=== PATIENT | female | born 1930 | race Caucasian/White ===

== ENCOUNTER 2016-11-04 10:16 | Inpatient (IN) | payer MEDICAID ==
[~2016-11-04] VITALS: Ht 149.9 cm; Wt 32.0 kg
[2016-11-04] MEDS ORDERED: SOD CHLORIDE 0.9% 1,000 ML IV ONE ×2 (10:30)
[2016-11-04 11:00] LABS: ADD SCAN DIFF NO
[2016-11-04 11:08] LABS: BASOPHIL # 0.1 10^3/ul (0.0-0.1); BASOPHILS % 0.4 % (0.0-2.0); EOSINOPHILS # 0.1 10^3/ul (0.0-0.5); EOSINOPHILS % 0.7 % (0.0-7.0); HEMATOCRIT 37.2 % (37.0-47.0); HEMOGLOBIN 11.9 g/dl (12.0-16.0); LYMPHOCYTES # 1.5 10^3/ul (0.8-2.9); LYMPHOCYTES % 13.3 % (15.0-51.0); MEAN CORPUSCULAR HEMOGLOBIN 27.4 pg (29.0-33.0); MEAN CORPUSCULAR VOLUME 85.5 fl (82.0-101.0); MEAN PLATELET VOLUME 10.3 fl (7.4-10.4); MONOCYTE # 0.7 10^3/ul (0.3-0.9); MONOCYTES % 6.1 % (0.0-11.0); NEUTROPHILS % 79.1 % (39.0-77.0); PLATELET COUNT 312 10^3/UL (140-415); RED BLOOD COUNT 4.35 10^6/ul (4.20-5.40); RED CELL DISTRIBUTION WIDTH 15.9 % (11.5-14.5); WHITE BLOOD COUNT 11.4 10^3/ul (4.8-10.8)
[2016-11-04 11:23] LABS: INR 1.14; PROTIME 14.6 Sec (12.2-14.2); PT RATIO 1.1
[2016-11-04] MEDS ORDERED: AMLO-147 PO (11:23)
[2016-11-04] MEDS ORDERED: FER325 PO (11:23)
[2016-11-04 11:24] LABS: PARTIAL THROMBOPLASTIN TIME 31.6 Sec (25.0-35.0)
[2016-11-04 11:25] LABS: ALBUMIN 3.5 g/dl (3.3-4.9); ALBUMIN/GLOBULIN RATIO 0.71; BILIRUBIN,INDIRECT 0.1 mg/dl (0-1.1); BILIRUBIN,TOTAL 0.1 mg/dl (0.2-1.3); CALCIUM 9.8 mg/dl (8.4-10.2); CREATININE 0.93 mg/dl (0.44-1.00); POTASSIUM 4.4 mmol/L (3.5-5.1); TOTAL PROTEIN 8.4 g/dl (6.1-8.1)
[2016-11-04] MEDS ORDERED: POTA20TA96 PO (11:25)
[2016-11-04] MEDS ORDERED: FOLI-49 PO (11:25)
[2016-11-04] MEDS ORDERED: MULTI PO (11:29)
[2016-11-04] MEDS ORDERED: ASCO500C7 PO (11:32)
[2016-11-04] MEDS ORDERED: SENN-8 PO (11:32)
[2016-11-04] MEDS ORDERED: DOCU-144 PO (11:33)
[2016-11-04] MEDS ORDERED: ACET-2047 PO (11:34)
[2016-11-04] MEDS ORDERED: TRAM-40 PO (11:34)
[2016-11-04] MEDS ORDERED: DEXT15DR5 OP (11:35)
[2016-11-04] MEDS ORDERED: DEXT15DR2 BOTH EYES (11:35)
[2016-11-04] MEDS ORDERED: BENZ1LOZ52 MM (11:37)
[2016-11-04 11:38] LABS: TROPONIN-I 0.02 ng/ml (0.00-0.12)
[2016-11-04] MEDS ORDERED: UDROBDM PO (11:38)
[2016-11-04] MEDS ORDERED: ACET325T45 PO (11:39)
--- NOTE | 2016-11-04 11:39 | RADRPT ---
PROCEDURE: XR Chest. CLINICAL INDICATION: Sepsis TECHNIQUE: An AP view of the chest was obtained. COMPARISON: No prior exam is available for comparison. FINDINGS: The lungs are hyperinflated. There are diffuse coarse bilateral interstitial opacities. No pleura l effusion or pneumothorax is seen. The cardiomediastinal silhouette is mildly enlarged . Calcific ations are seen within the aortic arch. The osseous structures demonstrate senescent changes. IMPRESSION: 1. Hyperinflation of the lungs with diffuse coarse interstitial opacities, at least partially relat ed to chronic lung changes. Superimposed pneumonia or edema is difficult to exclude. 2. Mild cardiomegaly and aortic atherosclerosis. RPTAT: HH .Yanni Lara MD, MD Date Time Electronically viewed and signed by .Yanni Lara MD, MD on 11/04/2016 11:39 .G/
[2016-11-04 13:04] LABS: ADD UMIC YES; URINE BILIRUBIN (Dip) NEGATIVE (NEGATIVE); URINE BLOOD (Dip) 2+ (NEGATIVE); URINE COLOR LT. YELLOW (YELLOW); URINE GLUCOSE (Dip) NEGATIVE (NEGATIVE); URINE KETONES (Dip) NEGATIVE (NEGATIVE); URINE LEUKOCYTE ESTERASE (Dip) TRACE (NEGATIVE); URINE NITRITE (Dip) NEGATIVE (NEGATIVE); URINE TOTAL PROTEIN (Dip) 2+ (NEGATIVE); URINE UROBILINOGEN (Dip) 1.0 E.U./dL (0.1-1.0)
[2016-11-04 13:15] LABS: BACTERIA,URINE MANY
[2016-11-04] MEDS ORDERED: CEFEPIME 1GM/50 ML (PMX) 50 ML IVPB ONE (13:30)
[2016-11-04] MEDS ORDERED: ASPIRIN 81 MG TAB PO ONE (14:30)
[2016-11-04] MEDS ORDERED: ACETAMINOPHEN 325 MG TAB PO PRN (14:30)
[2016-11-04] MEDS ORDERED: ONDANSETRON 4 MG INJ IV PRN (14:30)
--- NOTE | 2016-11-04 15:15 | ERA ---
ER Documentation Chief Complaint Date/Time DATE: 11/04/16 TIME: 15:08 Chief Complaint CP PER STAFF SINCE THIS MORNING. NO N/V. MOD SOB NOTED. HPI This 86 -year-old female presents emergency room with chest pain that began this morning. She has some shortness of breath. She also says she has some burning when she urinates. She has no nausea or vomiting. The pain is a sharp pain that does not radiate. States that she's having chills currently with no fevers. ROS All systems reviewed and are negative except as per history of present illness. Medications Home Meds Reported Medications Acetaminophen* (Acetaminophen*) 325 Mg Tablet, 325 MG PO DAILY Y for PAIN AND OR ELEVATED TEMP, #30 TAB 11/04/16 Guaifenesin-Dextromethorphan* (Robitussin* DM) 100MG/10MG/5ML Syrup, 10 ML PO Q8 Y for COUGH, ML 11/04/16 Benzocaine/Menthol* (Cepacol* Sore Throat Lozenges) 1 Each Lozenge, 1 EACH MM Q6 Y for SORE THROAT, LOZENGE 11/04/16 Dextran/Hypromellose/Glycerin (Artificial Tears Drops) 15 Ml Drops, 2 DROP BOTH EYES Q6, EA 11/04/16 Dextran 70/Hypromellose (ARTIFICIAL TEARS EYE DROPS) 15 Ml Drops, 15 ML OP, BOTTLE 11/04/16 Acetaminophen* (Acetaminophen*) 650 Mg Tablet, 650 MG PO Q4 Y for PAIN AND OR ELEVATED TEMP, #30 TAB 11/04/16 Tramadol Hcl* (Ultram*) 50 Mg Tablet, 50 MG PO BID Y for PAIN, TAB 11/04/16 Docusate Sodium* (Colace*) 100 Mg Capsule, 100 MG PO BID, #60 CAP 11/04/16 Sennosides/Docusate Sodium (Senna S Tablet) 1 Each Tablet, 1 EACH PO DAILY, TAB 11/04/16 Ascorbic Acid* (Vitamin C*) 500 Mg Capsule.sa, 500 MG PO DAILY, CAP 11/04/16 Multivitamins* (Theragran*) 1 Tab Tab, 1 TAB PO DAILY, TAB 11/04/16 Potassium Chloride* (Potassium Chloride*) 20 Meq Tablet.er, 10 MEQ PO DAILY, TAB.SA 11/04/16 Folic Acid* (Folic Acid*) 1 Mg Tablet, 1 MG PO DAILY, TAB 11/04/16 Ferrous Sulfate* (Ferrous Sulfate*) 325 Mg Tabec, 325 MG PO DAILY, TAB 11/04/16 Amlodipine Besylate* (Amlodipine Besylate*) 10 Mg Tablet, 10 MG PO DAILY, #30 TAB 11/04/16 Allergies Allergies: Coded Allergies: No Known Allergy (Unverified , 11/04/16) PMhx/Soc Hx Respiratory Disorders: Yes Hx Psychiatric Problems: Yes (delusion; depression) Hx Miscellaneous Medical Probl: Yes (failure to thrive; osteoporosis; gallstones; generalized weakness; old frau) Hx Alcohol Use: No Hx Substance Use: No Hx Tobacco Use: No Smoking Status: Never smoker Physical Exam Vitals Vital Signs Date Time Temp Pulse Resp B/P Pulse Ox O2 Delivery O2 Flow Rate FiO2 11/04/16 12:10 98 30 131/95 96 Nasal Cannula 2.0 11/04/16 10:55 Nasal Cannula 2 11/04/16 10:30 99.0 110 35 131/95 98 Physical Exam Const: [] Mild distress, very thin appearing Head: Atraumatic Eyes: Normal Conjunctiva, EOMI, PRL ENT: Normal External Ears, Nose and Mouth. Neck: Full range of motion..~ No meningismus. Resp: Decreased bibasilar breath sounds, mild tachypnea Cardio: Mild regular tachycardia, no murmurs Abd: Soft, non tender, non distended. Normal bowel sounds Skin: No petechiae or rashes Back: No midline or flank tenderness Ext: No cyanosis, or edema Neur: Awake and alert and oriented 3, no focal deficits Psych: Normal Mood and Affect Result Diagram: 11/04/16 1035 11/04/16 1035 Results 24 hrs Laboratory Tests Test 11/04/16 10:35 11/04/16 13:00 11/04/16 13:15 White Blood Count 11.410^3/ul Red Blood Count 4.3510^6/ul Hemoglobin 11.9g/dl Hematocrit 37.2% Mean Corpuscular Volume 85.5fl Mean Corpuscular Hemoglobin 27.4pg Mean Corpuscular Hemoglobin Concent 32.0g/dl Red Cell Distribution Width 15.9% Platelet Count 58788^3/UL Mean Platelet Volume 10.3fl Neutrophils % 79.1% Lymphocytes % 13.3% Monocytes % 6.1% Eosinophils % 0.7% Basophils % 0.4% Nucleated Red Blood Cells % 0.0/100WBC Neutrophils # 9.010^3/ul Lymphocytes # 1.510^3/ul Monocytes # 0.710^3/ul Eosinophils # 0.110^3/ul Basophils # 0.110^3/ul Nucleated Red Blood Cells # 0.010^3/ul Prothrombin Time 14.6Sec Prothrombin Time Ratio 1.1 INR International Normalized Ratio 1.14 Activated Partial Thromboplast Time 31.6Sec Sodium Level 141mmol/L Potassium Level 4.4mmol/L Chloride Level 108mmol/L Carbon Dioxide Level 24mmol/L Anion Gap 13 Blood Urea Nitrogen 41mg/dl Creatinine 0.93mg/dl Glucose Level 140mg/dl Lactic Acid Level 1.4mmol/L 2.3mmol/L Calcium Level 9.8mg/dl Total Bilirubin 0.1mg/dl Direct Bilirubin 0.00mg/dl Indirect Bilirubin 0.1mg/dl Aspartate Amino Transf (AST/SGOT) 27IU/L Alanine Aminotransferase (ALT/SGPT) 27IU/L Alkaline Phosphatase 159IU/L Troponin I 0.020ng/ml B-Type Natriuretic Peptide 1090PG/ML Total Protein 8.4g/dl Albumin 3.5g/dl Globulin 4.90g/dl Albumin/Globulin Ratio 0.71 Urine Color LT. YELLOW Urine Clarity SLIGHTLY CLOUDY Urine pH 8.0 Urine Specific [place] 1.010 Urine Ketones NEGATIVE Urine Nitrite NEGATIVE Urine Bilirubin NEGATIVE Urine Urobilinogen 1.0 E.U./dL Urine Leukocyte Esterase TRACE Urine Microscopic RBC 10-25/HPF Urine Microscopic WBC 2-5/HPF Urine Epithelial Cells FEW Urine Bacteria MANY Urine Hemoglobin 2+ Urine Glucose NEGATIVE% Urine Total Protein 2+ Current Medications Medications (Trade) Dose Ordered Sig/Giselle Route PRN Reason Start Time Stop Time Status Last Admin Dose Admin Sodium Chloride 1,000 ml @ 1,000 mls/hr Q1H ONCE IV 11/04/16 10:30 11/04/16 11:29 DC 11/04/16 11:30 Sodium Chloride 1,000 ml @ 1,000 mls/hr Q1H ONCE IV 11/04/16 10:30 11/04/16 11:29 DC 11/04/16 11:30 Cefepime HCl (Maxipime 1gm/50 ml (Pmx)) 50 ml @ 100 mls/hr ONCE ONCE IVPB 11/04/16 13:30 11/04/16 13:59 DC 11/04/16 14:18 Aspirin (Aspirin) 324 mg ONCE ONCE PO 11/04/16 14:30 11/04/16 14:31 DC 11/04/16 14:39 Ondansetron HCl (Zofran Inj) 4 mg ER BRIDGE PRN IV NAUSEA AND/OR VOMITING 11/04/16 14:30 11/05/16 14:29 Acetaminophen (Tylenol Tab) 650 mg ER BRIDGE PRN PO MILD PAIN/FEVER 11/04/16 14:30 11/05/16 14:29 Procedures/MDM . UTI with sepsis. Sepsis diagnosis was not made until 82 minutes after the patient's arrival when she returned with abnormal white count. In addition to leukocytosis she has a Urinary tract infection as well as tachypnea and tachycardia which resolved with fluid administration. Gave her 1 g of cefepime IV. Patient is also treated with an aspirin for her chest pain. No elevated troponin or signs of myocardial infarction on EKG. She'll be admitted and further labs will be trended. Spoke with Dr. Angeles and he'll be admitting the patient to telemetry. EKG interpretation: Sinus tachycardia rate of 104, left axis deviation, left anterior fascicular block, no ST or T-wave changes concerning for acute ischemia. independent trader interpretation: Mild sinus tachycardia with no other arrhythmias Chest x-ray interpretation: Chronic interstitial changes without appearance of any acute process, no obvious pneumonia, no pneumothorax, no fractures. Crit time 34 minutes: This includes treatment of sepsis in a patient with multiple capabilities and chest pain, careful fluid administration, antibiotic administration, multiple visits the patient's bedside to reassess status, chart review, discussion with admitting doctor and patient. This does not include any billable procedures. Departure Diagnosis: Primary Impression: Sepsis secondary to UTI Additional Impressions: Chest pain Tachypnea Dehydration Elevated lactic acid level Condition: Serious AYDEKRYSTYNA DO November 04, 2016 15:15
[2016-11-04 16:02] VITALS: BP 152/89; RESP 18
[2016-11-04 16:15] VITALS: BP 152/89; PULSE 88; RESP 20
[2016-11-04] MEDS ORDERED: ARTIFICIAL TEARS 15 ML OPH BOTH EYES PRN (16:30)
[2016-11-04] MEDS ORDERED: CEPASTAT LOZENGE MM PRN (16:30)
[2016-11-04] MEDS ORDERED: morphine 2 MG INJ IV PRN (16:30)
[2016-11-04 16:35] VITALS: PULSE 97
[2016-11-04 16:46] VITALS: Ht 149.9 cm; Wt 32.0 kg
[2016-11-04] MEDS ORDERED: ARTIFICIAL TEARS 15 ML OPH BOTH EYES SCH (18:00)
[2016-11-04 19:53] VITALS: BP 153/97; RESP 18
[2016-11-04] MEDS: CEFEPIME 1GM/50 ML (PMX) 50 ML IVPB SCH (20:17)
[2016-11-04] MEDS: DOCUSATE SODIUM 100 MG CAP PO SCH (20:17)
[2016-11-04 20:47] VITALS: PULSE 86
[2016-11-04 21:53] LABS: CK-MB 2.24 ng/ml (0.0-2.4)
[2016-11-04 21:56] LABS: TROPONIN-I 0.022 ng/ml (0.00-0.12)
[2016-11-04] MEDS: traZODone 50 MG TAB PO PRN ×2 (23:08→23:26)
[2016-11-04] MEDS: ACETAMINOPHEN 325 MG TAB PO PRN (23:27)
[2016-11-05] VITALS (12 sets, daily range): BP systolic 133–145; BP diastolic 74–91; PULSE 81–108; RESP 18–22
[2016-11-05] MEDS: morphine 4 MG/ML VIAL IV PRN ×4 (00:14→20:13)
[2016-11-05 03:12] LABS: ADD SCAN DIFF NO
[2016-11-05 03:36] LABS: BASOPHIL # 0.1 10^3/ul (0.0-0.1); BASOPHILS % 0.4 % (0.0-2.0); EOSINOPHILS # 0.6 10^3/ul (0.0-0.5); HEMATOCRIT 39.8 % (37.0-47.0); HEMOGLOBIN 12.3 g/dl (12.0-16.0); LYMPHOCYTES # 2.6 10^3/ul (0.8-2.9); MEAN CORPUSCULAR HEMOGLOBIN 27.1 pg (29.0-33.0); MEAN CORPUSCULAR HGB CONC 30.9 g/dl (32.0-37.0); MEAN CORPUSCULAR VOLUME 87.7 fl (82.0-101.0); MEAN PLATELET VOLUME 10.5 fl (7.4-10.4); MONOCYTE # 0.7 10^3/ul (0.3-0.9); MONOCYTES % 5.7 % (0.0-11.0); NEUTROPHIL # 7.7 10^3/ul (1.6-7.5); NEUTROPHILS % 66.3 % (39.0-77.0); PLATELET COUNT 321 10^3/UL (140-415); RED BLOOD COUNT 4.54 10^6/ul (4.20-5.40); RED CELL DISTRIBUTION WIDTH 16.2 % (11.5-14.5); WHITE BLOOD COUNT 11.7 10^3/ul (4.8-10.8)
[2016-11-05 03:50] LABS: CK-MB 2.47 ng/ml (0.0-2.4)
[2016-11-05 03:53] LABS: TROPONIN-I 0.032 ng/ml (0.00-0.12)
[2016-11-05 04:02] LABS: ALBUMIN 3.6 g/dl (3.3-4.9); ALBUMIN/GLOBULIN RATIO 0.69; BILIRUBIN,INDIRECT 0.2 mg/dl (0-1.1); BILIRUBIN,TOTAL 0.2 mg/dl (0.2-1.3); CALCIUM 10.1 mg/dl (8.4-10.2); CREATININE 0.91 mg/dl (0.44-1.00); POTASSIUM 4.6 mmol/L (3.5-5.1); TOTAL PROTEIN 8.8 g/dl (6.1-8.1)
[2016-11-05] MEDS: AMLODIPINE 5 MG TAB PO SCH (08:19)
[2016-11-05] MEDS: FERROUS SULFATE (EC) 325 MG TAB PO SCH (08:19)
[2016-11-05] MEDS: ASCORBIC ACID 500 MG TAB PO SCH (08:19)
[2016-11-05] MEDS: MULTIVITAMINS THERAPEUTIC TAB PO SCH (08:20)
[2016-11-05] MEDS: DOCUSATE SODIUM 100 MG CAP PO SCH ×2 (08:20→19:39)
[2016-11-05] MEDS: CEFEPIME 1GM/50 ML (PMX) 50 ML IVPB SCH ×2 (08:20→20:13)
[2016-11-05] MEDS: FOLIC ACID 1 MG TAB PO SCH (08:20)
[2016-11-05] MEDS: DEXTROSE 5%-0.45% NACL 1,000 ML IV SCH (09:30)
--- NOTE | 2016-11-05 10:37 | HP ---
DATE OF ADMISSION: 11/04/2016 CHIEF COMPLAINT AND HISTORY OF PRESENT ILLNESS: The patient is an 86-year-old lady who presents wit h shortness of breath, and some burning when she passes urine and diffuse body aches. The patient i s not able to give any cogent history at this time. From prior medical records, history of osteopor osis, history of cholelithiasis, fracture of the calcaneus on the left foot, chronic anemia and mild dementia. She is on a FULL CODE status. She also has history of hypertension. REVIEW OF SYSTEMS: Unable to obtain from the patient at this time. MEDICATIONS: Include: 1. Ferrous sulfate. 2. Folic acid. 3. Amlodipine. 4. Ultram. ALLERGIES: NO KNOWN ALLERGIES. SOCIAL HISTORY: No history of alcohol abuse or smoking. PHYSICAL EXAMINATION: GENERAL: The patient is an average-built female who is moaning. When repeatedly questioned, she is not able to vocalize what is bothering her. VITAL SIGNS: Blood pressure 131/95, temperature 99, O2 saturation 98% on 2 liters nasal cannula. HEENT: Mild pallor without cyanosis or icterus. Tongue is coated, dry. NECK: Supple. No thyromegaly, bruits or lymphadenopathy. CHEST: Revealed a few crackles heard at the bases. HEART: S1, S2 heard with no definite gallops. ABDOMEN: Soft, nontender, no hepatosplenomegaly. EXTREMITIES: No edema. Pedals 1+ bilaterally. Homans sign is negative. NEUROLOGIC: The patient moves both upper and lower extremities well. PELVIC/RECTAL/BREASTS: Deferred at patient's request. LABORATORY DATA: Initial sodium is 141, potassium 4.4, BUN 41, creatinine 0.93, lactic acid 2.3, al kaline phosphatase 159. Troponin 0.02. Repeat troponin is 0.032. UA shows trace leukocyte esteras e, many bacteria, 2+ hemoglobin. IMPRESSION: 1. Likely delirium secondary to urinary tract infection. 2. Atypical chest pain. No evidence of an acute myocardial infarction. 3. Dehydration with prerenal azotemia. 4. Hypertension by history. PLAN: We will obtain speech evaluation to rule out silent aspiration. Intravenous hydration. Empi jose eduardo antibiotic therapy pending cultures. Closely monitor the electrolytes and renal function. We w ill discuss with family regarding further history and document the same. Dictated By: KASSI RICARDO MD SR/NTS Conf#: [id number] DID#: [id number]
[2016-11-06] VITALS (11 sets, daily range): BP systolic 103–168; BP diastolic 63–82; PULSE 75–95; RESP 18
[2016-11-06] MEDS: morphine 4 MG/ML VIAL IV PRN ×4 (00:52→22:43)
[2016-11-06] MEDS: DEXTROSE 5%-0.45% NACL 1,000 ML IV SCH ×2 (00:52→12:10)
[2016-11-06 06:50] LABS: ADD SCAN DIFF NO
[2016-11-06 07:19] LABS: POTASSIUM 4.2 mmol/L (3.5-5.1)
[2016-11-06 07:21] LABS: CREATININE 0.85 mg/dl (0.44-1.00)
[2016-11-06 07:22] LABS: CALCIUM 9.3 mg/dl (8.4-10.2)
[2016-11-06 07:48] LABS: BASOPHIL # 0.1 10^3/ul (0.0-0.1); BASOPHILS % 0.5 % (0.0-2.0); EOSINOPHILS # 1.1 10^3/ul (0.0-0.5); EOSINOPHILS % 10.4 % (0.0-7.0); HEMATOCRIT 40.1 % (37.0-47.0); HEMOGLOBIN 12.6 g/dl (12.0-16.0); LYMPHOCYTES # 2.5 10^3/ul (0.8-2.9); LYMPHOCYTES % 22.7 % (15.0-51.0); MEAN CORPUSCULAR HEMOGLOBIN 27.5 pg (29.0-33.0); MEAN CORPUSCULAR HGB CONC 31.4 g/dl (32.0-37.0); MEAN CORPUSCULAR VOLUME 87.4 fl (82.0-101.0); MEAN PLATELET VOLUME 10.8 fl (7.4-10.4); MONOCYTE # 0.9 10^3/ul (0.3-0.9); NEUTROPHIL # 6.3 10^3/ul (1.6-7.5); NEUTROPHILS % 57.8 % (39.0-77.0); PLATELET COUNT 258 10^3/UL (140-415); RED BLOOD COUNT 4.59 10^6/ul (4.20-5.40); RED CELL DISTRIBUTION WIDTH 16.1 % (11.5-14.5); WHITE BLOOD COUNT 10.9 10^3/ul (4.8-10.8)
--- NOTE | 2016-11-06 07:51 | RADRPT ---
PROCEDURE: XR Chest. CLINICAL INDICATION: Shortness of breath. TECHNIQUE: Single frontal view. COMPARISON: 11/04/2016. FINDINGS: There is bilateral interstitial disease consistent with fibrosis or edema, unchanged. The lungs are otherwise clear. The heart size is normal. There is calcification in the aorta consistent with atherosclerosis. There is no pleural effusion. There is no pneumothorax. IMPRESSION: 1. No change from 11/04/2016. RPTAT: QQ .Harish Jones MD, MD Date Time Electronically viewed and signed by .Harish Jones MD, MD on 11/06/2016 07:51 .R/
[2016-11-06] MEDS: CEFEPIME 1GM/50 ML (PMX) 50 ML IVPB SCH ×2 (08:17→20:35)
[2016-11-06] MEDS: FERROUS SULFATE (EC) 325 MG TAB PO SCH (08:19)
[2016-11-06] MEDS: DOCUSATE SODIUM 100 MG CAP PO SCH ×2 (08:19→20:36)
[2016-11-06] MEDS: MULTIVITAMINS THERAPEUTIC TAB PO SCH (08:20)
[2016-11-06] MEDS: FOLIC ACID 1 MG TAB PO SCH (08:20)
[2016-11-06] MEDS: ASCORBIC ACID 500 MG TAB PO SCH (08:20)
[2016-11-06] MEDS: AMLODIPINE 5 MG TAB PO SCH (08:20)
[2016-11-06] MEDS: ESCITALOPRAM 10 MG TAB PO SCH (13:30)
--- NOTE | 2016-11-06 13:52 | PN ---
DATE: SUBJECTIVE: The patient keeps crying, unable to vocalize about any pain issues. On n.p.o. status a s speech therapy felt patient was not appropriate for p.o. diet yet. PHYSICAL EXAMINATION: VITAL SIGNS: The patient is afebrile, blood pressure 138/82, pulse oximetry 97%. HEENT: Head normocephalic. CHEST: Revealed a few crackles heard at the bases. HEART: S1, S2 with no definite gallops. EXTREMITIES: No edema. Homans sign is negative. LABORATORY DATA: Sodium 140, potassium 4.2, BUN 39, creatinine 0.85. WBC count 10.9, hematocrit 40 .1, platelet count 258,000. Urine cultures Klebsiella pneumoniae sensitive to cephalosporins. IMPRESSION: 1. Likely patient has encephalopathy secondary to urinary tract infection. 2. Dehydration with prerenal azotemia. 3. Hypertension by history. 4. Dysphagia. PLAN: Continue IV hydration, empiric antibiotic therapy pending cultures. Repeat speech therapy ev aluation. We will also start the patient on antidepressants, namely Lexapro 10 mg p.o. daily and as sess the response. Dictated By: KASSI RICARDO MD SR/NTS Conf#: [id number] DID#: [id number]
[2016-11-07] VITALS (13 sets, daily range): BP systolic 96–145; BP diastolic 55–85; PULSE 67–85; RESP 18–20
[2016-11-07] MEDS: LORAZEPAM 2 MG INJ IV PRN (00:35)
[2016-11-07] MEDS: DEXTROSE 5%-0.45% NACL 1,000 ML IV SCH ×3 (04:45→17:41)
[2016-11-07 06:51] LABS: ADD SCAN DIFF NO
[2016-11-07 06:55] LABS: BASOPHIL # 0.1 10^3/ul (0.0-0.1); BASOPHILS % 0.5 % (0.0-2.0); EOSINOPHILS # 1.3 10^3/ul (0.0-0.5); EOSINOPHILS % 12.9 % (0.0-7.0); HEMATOCRIT 35.3 % (37.0-47.0); HEMOGLOBIN 10.5 g/dl (12.0-16.0); LYMPHOCYTES # 2.4 10^3/ul (0.8-2.9); LYMPHOCYTES % 24.7 % (15.0-51.0); MEAN CORPUSCULAR HEMOGLOBIN 27.1 pg (29.0-33.0); MEAN CORPUSCULAR HGB CONC 29.7 g/dl (32.0-37.0); MEAN PLATELET VOLUME 10.2 fl (7.4-10.4); MONOCYTE # 0.9 10^3/ul (0.3-0.9); MONOCYTES % 9.5 % (0.0-11.0); NEUTROPHILS % 51.6 % (39.0-77.0); PLATELET COUNT 266 10^3/UL (140-415); RED BLOOD COUNT 3.88 10^6/ul (4.20-5.40); RED CELL DISTRIBUTION WIDTH 15.9 % (11.5-14.5); WHITE BLOOD COUNT 9.7 10^3/ul (4.8-10.8)
[2016-11-07 07:07] LABS: POTASSIUM 3.9 mmol/L (3.5-5.1)
[2016-11-07 07:10] LABS: CALCIUM 8.8 mg/dl (8.4-10.2); CREATININE 0.83 mg/dl (0.44-1.00)
[2016-11-07] MEDS: DOCUSATE SODIUM 100 MG CAP PO SCH ×2 (09:00→20:23)
[2016-11-07] MEDS: ASCORBIC ACID 500 MG TAB PO SCH (09:00)
[2016-11-07] MEDS: ESCITALOPRAM 10 MG TAB PO SCH (09:00)
[2016-11-07] MEDS: FOLIC ACID 1 MG TAB PO SCH (09:00)
[2016-11-07] MEDS: MULTIVITAMINS THERAPEUTIC TAB PO SCH (09:00)
[2016-11-07] MEDS: FERROUS SULFATE (EC) 325 MG TAB PO SCH (09:00)
[2016-11-07] MEDS: AMLODIPINE 5 MG TAB PO SCH (09:00)
[2016-11-07] MEDS: CEFEPIME 1GM/50 ML (PMX) 50 ML IVPB SCH ×2 (09:14→20:23)
[2016-11-07] MEDS: ENOXAPARIN 30 MG/0.3 ML SYG SC SCH (09:18)
--- NOTE | 2016-11-07 11:24 | RADRPT ---
PROCEDURE: XR Chest 1 View. CLINICAL INDICATION: Shortness of breath. TECHNIQUE: AP view of the chest was obtained. COMPARISON: Yesterday. FINDINGS: The heart size is within normal limits. Calcified atherosclerosis is noted in the aorta. Diffuse in terstitial prominence in both lungs is unchanged. Superimposed patchy alveolar infiltrates in both lungs are stable. Osseous structures are unchanged. IMPRESSION: Calcified atherosclerosis in the aorta. Stable diffuse interstitial prominence in both lungs. Stable superimposed patchy alveolar infiltrates throughout both lungs. RPTAT: AA .Jacques Calhoun MD, MD Date Time Electronically viewed and signed by .Jacques Calhoun MD, on 11/07/2016 11:24 .P/
--- NOTE | 2016-11-07 16:39 | PN ---
DATE: SUBJECTIVE: The patient continues to moan, but seems like she is having less pain today, has been g etting morphine. PHYSICAL EXAMINATION: VITAL SIGNS: Temperature 98.4, blood pressure 134/66, respirations 20 per minute, O2 saturation is 98%. HEENT: Head normocephalic. CHEST: Shows few crackles at the bases. HEART: S1, S2 heard with no gallops. EXTREMITIES: No edema. LABORATORY DATA: WBC count 9.7, hematocrit 35.3, platelet count 266,000. Sodium 140, potassium 3.9 , BUN 25, creatinine 0.83. BNP is 550. Blood cultures negative. IMPRESSION: 1. Urinary tract infection with associated encephalopathy. 2. Dehydration with prerenal azotemia, improved. 3. Hypertension. 4. Dysphagia. 5. Underlying major depression. The patient was started on Lexapro, but is unable to be given p.o. We will discuss with speech therapy and then start the patient on pureed diet with thickened liqui ds with strict aspiration precautions. Dictated By: KASSI RICARDO MD, SR/SHANTEL Conf#: [id number] DID#: [id number]
[2016-11-08] VITALS (12 sets, daily range): BP systolic 121–192; BP diastolic 63–101; PULSE 75–120; RESP 18–19
[2016-11-08] MEDS: DEXTROSE 5%-0.45% NACL 1,000 ML IV SCH ×2 (05:22→17:20)
[2016-11-08 07:12] LABS: ADD SCAN DIFF NO
[2016-11-08 07:19] LABS: BASOPHILS % 0.3 % (0.0-2.0); EOSINOPHILS # 0.6 10^3/ul (0.0-0.5); EOSINOPHILS % 6.3 % (0.0-7.0); HEMATOCRIT 32.8 % (37.0-47.0); HEMOGLOBIN 10.3 g/dl (12.0-16.0); LYMPHOCYTES # 1.7 10^3/ul (0.8-2.9); MEAN CORPUSCULAR HEMOGLOBIN 27.3 pg (29.0-33.0); MEAN CORPUSCULAR HGB CONC 31.4 g/dl (32.0-37.0); MEAN PLATELET VOLUME 10.4 fl (7.4-10.4); MONOCYTE # 0.6 10^3/ul (0.3-0.9); MONOCYTES % 6.2 % (0.0-11.0); NEUTROPHIL # 6.2 10^3/ul (1.6-7.5); NEUTROPHILS % 67.9 % (39.0-77.0); PLATELET COUNT 320 10^3/UL (140-415); RED BLOOD COUNT 3.77 10^6/ul (4.20-5.40); RED CELL DISTRIBUTION WIDTH 15.6 % (11.5-14.5); WHITE BLOOD COUNT 9.2 10^3/ul (4.8-10.8)
[2016-11-08 07:34] LABS: ALBUMIN 2.8 g/dl (3.3-4.9)
[2016-11-08 07:35] LABS: POTASSIUM 3.4 mmol/L (3.5-5.1)
[2016-11-08 07:37] LABS: ALBUMIN/GLOBULIN RATIO 0.63; BILIRUBIN,INDIRECT 0.4 mg/dl (0-1.1); BILIRUBIN,TOTAL 0.4 mg/dl (0.2-1.3); CREATININE 0.71 mg/dl (0.44-1.00); TOTAL PROTEIN 7.2 g/dl (6.1-8.1)
[2016-11-08 07:38] LABS: CALCIUM 8.8 mg/dl (8.4-10.2); MAGNESIUM 1.7 mg/dl (1.7-2.5)
[2016-11-08] MEDS: AMLODIPINE 5 MG TAB PO SCH (09:00)
[2016-11-08] MEDS: DOCUSATE SODIUM 100 MG CAP PO SCH ×2 (09:00→20:15)
[2016-11-08] MEDS: MULTIVITAMINS THERAPEUTIC TAB PO SCH (09:00)
[2016-11-08] MEDS: ASCORBIC ACID 500 MG TAB PO SCH (09:00)
[2016-11-08] MEDS: FOLIC ACID 1 MG TAB PO SCH (09:00)
[2016-11-08] MEDS: ESCITALOPRAM 10 MG TAB PO SCH (09:00)
[2016-11-08] MEDS: FERROUS SULFATE (EC) 325 MG TAB PO SCH (09:00)
[2016-11-08] MEDS: CEFEPIME 1GM/50 ML (PMX) 50 ML IVPB SCH ×2 (09:10→20:14)
[2016-11-08] MEDS: ENOXAPARIN 30 MG/0.3 ML SYG SC SCH (09:13)
[2016-11-08] MEDS: morphine 4 MG/ML VIAL IV PRN ×2 (09:14→20:35)
[2016-11-08] MEDS: hydrALAzine 20 MG INJ IV PRN (11:30)
[2016-11-08] MEDS: LORAZEPAM 2 MG INJ IV PRN (15:18)
[2016-11-08] MEDS ORDERED: BARIUM SULF 2% 450 ML BTL (BERRY SMOOTHIE) PO ONE (18:00)
--- NOTE | 2016-11-08 18:13 | PN ---
DATE: SUBJECTIVE: The patient continues to keep moaning when repeatedly questioned. I am unable to ascer tain the location where she has pain. She is n.p.o., as she failed swallow evaluation. PHYSICAL EXAMINATION: VITAL SIGNS: Temperature 98.3, pulse 118 per minute, blood pressure 120/63, O2 sats 93%. HEENT: Head normocephalic. Moderate pallor. CHEST: Clear anteriorly. Few crackles heard at the bases. HEART: S1, S2 with no definite gallops. EXTREMITIES: No edema. Previous records reviewed. The patient had a recent ultrasound about a month ago, which showed gall stones and the left renal atrophy with bilateral nonobstructing renal stones. It is possible she ma y be having pain from nephrolithiasis. I have already spoken with the patient's nephew, Mr. Muniz, and explained to him regarding patient's swallowing difficulty. He will discuss with other members of the family and we need to consider some kind of alternative modes of feeding. LABORATORY DATA: Sodium 135, potassium 3.4, BUN 14, creatinine 0.71. WBC count 9.2, hematocrit 32. 8, platelet count 320,000. IMPRESSION: 1. Urinary tract infection with associated delirium. 2. Dehydration with prerenal azotemia, improved. 3. Anemia, rule out gastrointestinal blood loss. 4. Hypertension. 5. Dysphagia. 6. Underlying major depression. 7. History of cholelithiasis. 8. Nephrolithiasis. PLAN: We will proceed and get a CT of the abdomen and pelvis. [facility]. Will discuss with family regarding consideration of G-tube feedings. Dictated By: KASSI RICARDO MD, SR/NTS Conf#: [id number] DID#: [id number]
[2016-11-08] MEDS: POTASSIUM CHLORIDE 30 MEQ in DEXTROSE 5%-0.45% NACL 1,000 ML IV SCH (18:54)
--- NOTE | 2016-11-08 18:58 | RADRPT ---
PROCEDURE: CT Abdomen and Pelvis without contrast. CLINICAL INDICATION: Abdominal and pelvic pain. TECHNIQUE: CT scan of the abdomen and pelvis without contrast was performed. Coronal and sagittal reformatted images were obtained from the axial source images. Images were reviewed on a high-[employer] PACS workstation. Total exam DLP is 233.33 mGy-cm. CTDIvol is 4.68 mGy. One or more of the fo llowin dose reduction techniques were used: Automated exposure control, adjustment of the mA and/or kV according to patient size, use of iterative reconstruction technique. COMPARISON: Chest radiograph dated 11/07/2016. FINDINGS: There is extensive interstitial disease at the lung bases with mild bronchiectasis consistent with a chronic infiltrative process. Right is worse than left. The lung bases are otherwise normal. The re is no pleural effusion or pericardial effusion. There is extensive coronary artery calcification . The liver is normal in size and attenuation. There is no focal hepatic lesion. The gallbladder is distended and gallstones are present in the gallbladder. There is no evidence of cholecystitis. The common bile duct is dilated measuring 11 mm in diameter. No obstructing lesion is visualized. The spleen is normal in size. There is no focal splenic lesion. Both adrenals are normal with no enlargement or mass. The pancreas is unremarkable with no mass or evidence of pancreatitis. There is no renal mass or hydronephrosis. There is no renal calculus or ureteral calculus. There is calcification in the aorta consistent with atherosclerosis. There is an infrarenal abdomin al aortic aneurysm measuring 3.3 cm in maximal dimension. There is no evidence of aneurysm leak. There is no retroperitoneal lymphadenopathy or mass. There is no pelvic lymphadenopathy or mass. The urinary bladder is mildly distended but otherwise unremarkable. The periappendiceal region is unremarkable with no evidence of appendicitis. The bowel and mesentery are normal. There is no free fluid or free gas. There are degenerative changes of the spine. There is no fracture or lytic lesion IMPRESSION: 1. Chronic infiltrative process in the lungs with right worse than left. 2. Coronary artery calcification. 3. Distended gallbladder containing gallstones. No evidence of cholecystitis. 4. Atherosclerosis. 5. Infrarenal abdominal aortic aneurysm measuring 3.3 cm. 6. Mildly distended urinary bladder. 7. Degenerative changes of the spine. RPTAT: QQ .Harish Jones MD, MD Date Time Electronically viewed and signed by .Harish Jones MD, MD on 11/08/2016 18:57 .R/
[2016-11-09] VITALS (13 sets, daily range): BP systolic 135–186; BP diastolic 65–103; PULSE 80–92; RESP 18–20
[2016-11-09 06:01] LABS: ADD SCAN DIFF NO
[2016-11-09 06:16] LABS: BASOPHILS % 0.4 % (0.0-2.0); EOSINOPHILS # 0.6 10^3/ul (0.0-0.5); EOSINOPHILS % 7.5 % (0.0-7.0); HEMATOCRIT 33.2 % (37.0-47.0); HEMOGLOBIN 10.6 g/dl (12.0-16.0); LYMPHOCYTES # 1.5 10^3/ul (0.8-2.9); LYMPHOCYTES % 17.4 % (15.0-51.0); MEAN CORPUSCULAR HEMOGLOBIN 27.2 pg (29.0-33.0); MEAN CORPUSCULAR HGB CONC 31.9 g/dl (32.0-37.0); MEAN CORPUSCULAR VOLUME 85.1 fl (82.0-101.0); MEAN PLATELET VOLUME 10.7 fl (7.4-10.4); MONOCYTE # 0.6 10^3/ul (0.3-0.9); MONOCYTES % 7.6 % (0.0-11.0); NEUTROPHIL # 5.6 10^3/ul (1.6-7.5); NEUTROPHILS % 66.3 % (39.0-77.0); PLATELET COUNT 300 10^3/UL (140-415); RED CELL DISTRIBUTION WIDTH 15.5 % (11.5-14.5); WHITE BLOOD COUNT 8.4 10^3/ul (4.8-10.8)
[2016-11-09 06:47] LABS: CALCIUM 9.2 mg/dl (8.4-10.2); CREATININE 0.7 mg/dl (0.44-1.00); POTASSIUM 4.5 mmol/L (3.5-5.1)
[2016-11-09] MEDS: POTASSIUM CHLORIDE 30 MEQ in DEXTROSE 5%-0.45% NACL 1,000 ML IV SCH ×3 (06:55→21:03)
[2016-11-09] MEDS: morphine 4 MG/ML VIAL IV PRN ×3 (08:42→22:23)
[2016-11-09] MEDS: FOLIC ACID 1 MG TAB PO SCH (08:43)
[2016-11-09] MEDS: CEFEPIME 1GM/50 ML (PMX) 50 ML IVPB SCH ×2 (08:43→21:02)
[2016-11-09] MEDS: ESCITALOPRAM 10 MG TAB PO SCH (08:43)
[2016-11-09] MEDS: FERROUS SULFATE (EC) 325 MG TAB PO SCH (08:43)
[2016-11-09] MEDS: MULTIVITAMINS THERAPEUTIC TAB PO SCH (08:43)
[2016-11-09] MEDS: AMLODIPINE 5 MG TAB PO SCH (08:43)
[2016-11-09] MEDS: DOCUSATE SODIUM 100 MG CAP PO SCH ×2 (08:43→20:56)
[2016-11-09] MEDS: ASCORBIC ACID 500 MG TAB PO SCH (08:44)
[2016-11-09] MEDS: ENOXAPARIN 30 MG/0.3 ML SYG SC SCH (08:47)
--- NOTE | 2016-11-09 17:06 | PN ---
DATE: 11/09/2016 SUBJECTIVE: Patient is lethargic, keeps moaning, unable to localize the area of pain. PHYSICAL EXAMINATION: VITAL SIGNS: Patient is afebrile. Blood pressure 136/75, O2 sats 90%, pulse rate 84 and regular. HEENT: Moderate pallor with cyanosis. CHEST: clinically clear anteriorly. HEART: S1, S2 heard with no definite gallops. ABDOMEN: Soft, nontender, no hepatosplenomegaly. EXTREMITIES: No edema. IMAGING: CT of the abdomen and pelvis shows chronic infiltrative process in the lungs, right worse than left, with bronchiectasis. Gallbladder is distended and gallstones present. Common bile duct is dilated measuring 11 mm. No obstruction noted. Infrarenal abdominal aortic aneurysm 3.3 cm. LABORATORY DATA: WBC count 8.4, hematocrit 33.2. Sodium 130, potassium 4.5, BUN 11, creatinine 0.7 . IMPRESSION: 1. Urinary tract infection with delirium. 2. Dehydration with prerenal azotemia, improved. 3. Anemia, rule out occult malignancy. 4. Hypertension. 5. Cholelithiasis. 6. Bronchiectasis. 7. Dysphagia. 8. Nephrolithiasis. PLAN: Will await the speech therapy evaluation today and if the patient fails, we will consider G-t ube placement. I have discussed with the patient's nephew Mr. Muniz, who is agreeable. In the mean time, we will request a gastroenterology consultation with Dr. Rojas. Dictated By: KASSI RICARDO MD, SR/SHANTEL Conf#: [id number] DID#: [id number]
[2016-11-09] MEDS: hydrALAzine 20 MG INJ IV PRN (20:03)
--- NOTE | 2016-11-09 23:01 | CONS ---
DATE OF ADMISSION: 11/04/2016 DATE OF CONSULTATION: TYPE OF CONSULTATION: Gastroenterology. REFERRING PHYSICIAN: Dr. Matteo Ricardo REASON FOR CONSULTATION: Dysphagia and placement of G-tube. HISTORY OF PRESENT ILLNESS: The patient is an 86-year-old female admitted to the hospital through [facility] emergency room for shortness of breath and some burning sensation while urinating. She was also having diffuse body ache. The patient has not been eating for the last few days. She has lost sign ificant weight. She had a swallow study, which she failed, so GI consult was called in for placemen t of G-tube. The patient also has a history of osteoporosis and a gallstone. She is demented, so n ot much information could be gathered from her. PAST MEDICAL HISTORY: Dementia, hypertension, fracture of the calcaneus of the left foot, chronic a nemia. HOME MEDICATIONS: She is on: 1. Ferrous sulfate. 2. Folic acid. 3. Amlodipine. 4. Ultram. ALLERGIES: NONE. SOCIAL HISTORY: Does not smoke or drink. No recreational drugs. PHYSICAL EXAMINATION: GENERAL: Definitely cachectic, malnourished. CARDIOVASCULAR: No murmur, gallop, or click. LUNGS: Clear. ABDOMEN: Soft, nontender. No organomegaly. No mass of the upper abdomen. EXTREMITIES: No edema. CENTRAL NERVOUS SYSTEM: Grossly within normal limit. LABORATORY DATA: BUN was 41 when she was admitted. Now it has come down to 11 and creatinine is 0. 7. Alkaline phosphatase was 126. Hematocrit is 33.2. INR is 1.1. CAT scan of the abdomen and pel vis done yesterday showed gallstones, pneumonia, coronary artery calcification, a distended gallblad kira, but no evidence of cholecystitis, and there is an infrarenal 3.3 cm. The bile duct was dilated up to 11 mm. IMPRESSION: 1. Cachexia. 2. Malnutrition. 3. Dysphagia. 4. Gallstones with dilated biliary system, mild elevation of alkaline phosphatase. Biliary patholo gy cannot be absolutely ruled out. 5. Pneumonia. 6. Hypertension. 7. Dementia. 8. Anemia. PLAN: Continue antibiotic. Will get MRCP done. Since the patient is malnourished and suffering fr om dysphagia, will also proceed with placement of G-tube. Dictated By: DAHIANA COPELAND/SHANTEL Conf#: [id number] DID#: [id number] CC: MATTEO RICARDO MD; DAHIANA CANTOR MD;*End*
[2016-11-10] VITALS (21 sets, daily range): BP systolic 99–168; BP diastolic 59–90; PULSE 88–110; RESP 14–30
--- NOTE | 2016-11-10 00:49 | RADRPT ---
PROCEDURE: MRI abdomen / MRCP CLINICAL INDICATION: Right upper quadrant pain. Choledocholithiasis TECHNIQUE: MRI of the abdomen is performed without contrast utilizing axial T2 and T2 fat suppress ion sequences as well as in and out of phase imaging. The MRCP is performed and the MIP series subm itted for review. COMPARISON: CT abdomen and pelvis 11/08/2016 FINDINGS: The exam is limited by motion artifact Visualized lower thorax: Right posterior lower lobe subsegmental atelectasis is suggested, there is no obvious pleural or pericardial effusion. Liver: Mild intrahepatic ductal dilatation is present. There is a normal contour, size and signal intensity. Gallbladder: Hydrops is present, distension of the lumen with multiple rounded low signal intensity filling defects consistent with large gallstones each measuring approximately 1.8 cm. There is min imal gallbladder wall thickening. There is no pericholecystic inflammation. Common bile duct: There is no filling defect to suggest choledocholithiasis. The caliber of the du ct is borderline dilated for the patient's age estimated at 9 mm. The MRCP shows evidence for mild intrahepatic or extrahepatic ductal dilatation, the ductal system is smoothly aligned with no eviden ce for filling defect. The distal common bile duct shows smooth tapering toward the ampulla. Pancreas: There is no finding to suggest pancreatitis, mass or ductal dilatation. Spleen: Normal in size with no masses evident. Adrenal glands: Unremarkable bilaterally. Kidneys: Normal in size with no evidence for masses or hydronephrosis. The perinephric fat is gross ly normal. Stomach, visualized small bowel and visualized large intestine: No gross abnormalities are identifie d. Abdominal aorta: Previously seen aneurysm is estimated at 3.6 without evidence of adjacent retroper itoneal hematoma. Inferior vena cava: Normal. Vertebral bodies and osseous structures: Multilevel degenerative spondylosis and scoliosis of the th oracolumbar spine is present without evidence of bone marrow edema. Musculature and soft tissues: No abnormalities are seen. RPTAT:HJJR IMPRESSION: 1. Limited exam because of motion artifact. 2. Borderline common bile duct dilatation, the measurement 9 mm which is believed to be within the upper limits of normal for the patient's provided age, the distal common bile duct showing smooth ta pering, a stricture difficult to exclude but there is no evidence of choledocholithiasis. 3. Cholelithiasis, gallbladder hydrops and gallbladder wall thickening concerning for cholecystitis . 4. Mild intrahepatic ductal dilatation. 5. Infrarenal abdominal aortic aneurysm is estimated at 3.6 cm. Jose Daniel Joel Physician Date Time Electronically viewed and signed by Jose Daniel Joel, Physician on 11/10/2016 00:48 JR/
[2016-11-10 06:54] LABS: ADD SCAN DIFF NO; BASOPHIL # 0.1 10^3/ul (0.0-0.1); BASOPHILS % 0.5 % (0.0-2.0); EOSINOPHILS # 0.4 10^3/ul (0.0-0.5); EOSINOPHILS % 3.8 % (0.0-7.0); HEMATOCRIT 32.4 % (37.0-47.0); HEMOGLOBIN 10.6 g/dl (12.0-16.0); LYMPHOCYTES # 1.4 10^3/ul (0.8-2.9); LYMPHOCYTES % 14.6 % (15.0-51.0); MEAN CORPUSCULAR HEMOGLOBIN 27.7 pg (29.0-33.0); MEAN CORPUSCULAR HGB CONC 32.7 g/dl (32.0-37.0); MEAN CORPUSCULAR VOLUME 84.8 fl (82.0-101.0); MEAN PLATELET VOLUME 9.7 fl (7.4-10.4); MONOCYTE # 0.7 10^3/ul (0.3-0.9); MONOCYTES % 7.4 % (0.0-11.0); NEUTROPHIL # 6.8 10^3/ul (1.6-7.5); NEUTROPHILS % 72.6 % (39.0-77.0); PLATELET COUNT 408 10^3/UL (140-415); RED BLOOD COUNT 3.82 10^6/ul (4.20-5.40); RED CELL DISTRIBUTION WIDTH 15.4 % (11.5-14.5); WHITE BLOOD COUNT 9.4 10^3/ul (4.8-10.8)
[2016-11-10 07:14] LABS: POTASSIUM 4.8 mmol/L (3.5-5.1)
[2016-11-10 07:17] LABS: CREATININE 0.8 mg/dl (0.44-1.00)
[2016-11-10 07:18] LABS: CALCIUM 9.2 mg/dl (8.4-10.2)
[2016-11-10 07:21] LABS: INR 1.17; PT RATIO 1.2
[2016-11-10 07:22] LABS: PARTIAL THROMBOPLASTIN TIME 33.7 Sec (25.0-35.0)
[2016-11-10] MEDS: CEFEPIME 1GM/50 ML (PMX) 50 ML IVPB SCH (08:37)
[2016-11-10] MEDS: DOCUSATE SODIUM 100 MG CAP PO SCH ×2 (08:37→20:40)
[2016-11-10] MEDS: MULTIVITAMINS THERAPEUTIC TAB PO SCH (08:38)
[2016-11-10] MEDS: FOLIC ACID 1 MG TAB PO SCH (08:38)
[2016-11-10] MEDS: ASCORBIC ACID 500 MG TAB PO SCH (08:38)
[2016-11-10] MEDS: ESCITALOPRAM 10 MG TAB PO SCH (08:38)
[2016-11-10] MEDS: FERROUS SULFATE (EC) 325 MG TAB PO SCH (08:38)
[2016-11-10] MEDS: AMLODIPINE 5 MG TAB PO SCH (08:38)
[2016-11-10] MEDS: morphine 4 MG/ML VIAL IV PRN ×2 (08:45→17:42)
[2016-11-10] MEDS: POTASSIUM CHLORIDE 30 MEQ in DEXTROSE 5%-0.45% NACL 1,000 ML IV SCH (10:46)
[2016-11-10] MEDS ORDERED: CEFAZOLIN 1 GM/50 ML (PMX) 50 ML IVPB ONE (12:00)
[2016-11-10] MEDS ORDERED: PROPOFOL 20 ML ONE (12:05)
--- NOTE | 2016-11-10 14:08 | GILP ---
DATE OF PROCEDURE: PROCEDURE: Permanent PEG. INDICATION: The patient is an 86-year-old female undergoing this procedure for long-term enteral nu trition. She failed a swallow study. INFORMED CONSENT: The risk of the procedure, related and unrelated complications, anesthetic risks, alternatives discussed and informed consent was obtained. DESCRIPTION OF PROCEDURE: The patient was brought to the GI lab, sedated by the anesthesiologist. After optimum sedation, scope was passed with much ease into esophagus and advanced further down int o stomach and duodenum. There was no evidence of obstruction. By transillumination and digital pal pation technique, appropriate site was chosen and anterior abdominal wall site was sterilized with c hlorhexidine solution, 2% Xylocaine instilled by safe method. A small incision was made. Through t hat incision, trocar and stylet passed into the stomach. Stylet was removed through the hollow tip of the catheter. Insertion wire was passed and the entire procedure was completed by modified Ponsk y technique. The patient was rescoped. The position of the internal bumper confirmed. External bu mper secured. The patient tolerated the procedure very well. IMPRESSION: Successful placement of G-tube done. PLAN: Resume feeding through the G-tube after 6 hours. Abdominal binder all the time. Dictated By: DAHIANA COPELAND/SHANTEL Conf#: [id number] DID#: [id number] CC: DAHIANA CANTOR MD; KASSI RICARDO MD;*EndCC*
--- NOTE | 2016-11-10 15:38 | PN ---
DATE: 11/10/2016 SUBJECTIVE: The patient continues to remain in pain with very poor p.o. intake. Dr. Rojas's GI consultation and recommendations are greatly appreciated. The patient was seen post -PEG placement. PHYSICAL EXAMINATION: VITAL SIGNS: Temperature 97.6, blood pressure 122/70, respiratory rate 20 per minute. CHEST: Clinically clear. HEART: S1, S2 heard with no definite gallops. EXTREMITIES: No edema. LABORATORY DATA: WBC count 9.4, hematocrit 32.4, platelet count 408,000. Potassium 4.8, BUN 12, cr eatinine 0.8, glucose 125. MRCP shows borderline common bile duct dilatation, no evidence of choled ocholithiasis, cholelithiasis with gallbladder wall thickening, rule out cholecystitis, infrarenal a bdominal aortic aneurysm at 3.6 cm. CEA level was 3.8. CA-125 was 27.4. IMPRESSION: 1. Severe dysphagia complicated with likely underlying mental illness with major depression with po or p.o. intake. 2. Malnutrition. 3. Urinary tract infection with delirium. 4. Chronic anemia. 5. Hypertension. 6. Cholelithiasis, possible cholecystitis. 7. Bronchiectasis. 8. Nephrolithiasis. PLAN: We will continue G-tube feedings per Dr. Rojas. I have discussed with Dr. Rojas. Change a ntibiotics from cefepime to Zosyn for better coverage and closely follow along. Dictated By: KASSI RICARDO MD SR/NTS Conf#: [id number] DID#: [id number]
[2016-11-10] MEDS: PIPER-TAZO 2.25 GM (PMX) 50 ML IVPB SCH (22:22)
[2016-11-11] VITALS (12 sets, daily range): BP systolic 111–147; BP diastolic 54–92; PULSE 92–105; RESP 17–20
[2016-11-11] MEDS: morphine 4 MG/ML VIAL IV PRN ×2 (02:29→10:42)
[2016-11-11] MEDS: PIPER-TAZO 2.25 GM (PMX) 50 ML IVPB SCH ×3 (05:27→21:30)
[2016-11-11] MEDS: POTASSIUM CHLORIDE 30 MEQ in DEXTROSE 5%-0.45% NACL 1,000 ML IV SCH ×2 (05:28→22:22)
[2016-11-11] MEDS: MULTIVITAMINS THERAPEUTIC TAB PO SCH (08:29)
[2016-11-11] MEDS: FERROUS SULFATE (EC) 325 MG TAB PO SCH (08:29)
[2016-11-11] MEDS: DOCUSATE SODIUM 100 MG CAP PO SCH (08:29)
[2016-11-11] MEDS: ASCORBIC ACID 500 MG TAB PO SCH (08:29)
[2016-11-11] MEDS: AMLODIPINE 5 MG TAB PO SCH (08:29)
[2016-11-11] MEDS: ACETAMINOPHEN 325 MG TAB PO PRN (08:29)
[2016-11-11] MEDS: FOLIC ACID 1 MG TAB PO SCH (08:29)
[2016-11-11] MEDS: ESCITALOPRAM 10 MG TAB PO SCH (08:29)
[2016-11-11] MEDS ORDERED: ACETAMINOPHEN 650MG/20.3ML CUP GTB PRN (11:00)
--- NOTE | 2016-11-11 13:51 | PN ---
DATE: SUBJECTIVE: The patient continues to have diffuse pains, again unable to localize the location of p ain. PHYSICAL EXAMINATION: GENERAL: Appears to have a depressed affect. VITAL SIGNS: Temperature 98.0, blood pressure 111/54, O2 saturation 95% on room air. HEENT: Head normocephalic. CHEST: Clinically clear. HEART: S1, S2 heard with no definite gallops. ABDOMEN: Soft, minimal tenderness, diffuse. Bowel sounds active. G-tube functioning well. EXTREMITIES: No edema. IMPRESSION: 1. Severe dysphagia complicated with likely underlying major depression with poor p.o. intake, stat us post G-tube placement. 2. Malnutrition. 3. Cholecystitis. 4. Urinary tract infection. 5. Chronic anemia. 6. Hypertension. 7. Bronchiectasis. 8. Nephrolithiasis. PLAN: We will continue Zosyn for now. Discontinue telemetry, transfer to medical/surgical, and con tinue IV antibiotics. Recheck labs in a.m. Dictated By: KASSI RICARDO MD, SR/SHANTEL Conf#: [id number] DID#: [id number]
--- NOTE | 2016-11-11 15:52 | CONS ---
Date/Time of Note Date/Time of Note DATE: 11/11/16 TIME: 15:51 Assessment/Plan Assessment/Plan Additional Assessment/Plan IMPRESSION: 1. Cachexia. 2. Malnutrition. 3. Dysphagia. 4. Gallstones with dilated biliary system, mild elevation of alkaline phosphatase. Biliary pathology cannot be absolutely ruled out. 5. Pneumonia. 6. Hypertension. 7. Dementia. 8. Anemia. 9. Status post PEG patient is tolerating feeding Plan Continue present care Slowly increase feeding Patient clinically does not have signs of acute cholecystitis, will continue with antibiotics Consultation Date/Type/Reason Admit Date/Time November 04, 2016 at 14:31 Initial Consult Date 24 HR Interval Summary Constitutional: improved Exam/Review of Systems Vital Signs Vitals Vital Signs Date Time Temp Pulse Resp B/P Pulse Ox O2 Delivery O2 Flow Rate FiO2 11/11/16 15:24 98.0 97 18 119/66 96 11/10/16 13:30 Nasal Cannula 2.0 Intake and Output 11/10/16 11/10/16 11/11/16 15:00 23:00 07:00 Intake Total 600 ml 450 ml Balance 600 ml 450 ml Exam Constitutional: alert, oriented, well developed Psych: nl mood/affect, no complaints Head: atraumatic, normocephalic Eyes: EOMI, PERRL, nl conjunctiva, nl lids, nl sclera ENMT: nl external ears & nose, nl lips & teeth, nl nasal mucosa & septum Neck: non-tender, supple Respiratory: clear to auscultation, normal air movement Cardiovascular: nl pulses, regular rate and rhythm Gastrointestinal: nl liver, spleen, non-tender, soft Musculoskeletal: nl extremities to inspection, nl gait and stance Extremities: normal pulses Neurological: GEM CARVER II-XII intact, nl mental status, nl speech, nl strength Skin: nl turgor, No rash or lesions Lymph: nl lymph nodes Results Result Diagram: 11/10/1639 11/10/16638 Medications Medications Current Medications Ascorbic Acid (Vitamin C) 500 mg DAILY PO Last administered on 11/11/16t 08:29 ; Admin Dose 500 MG; Start 11/05/16 at 09:00 Phenol (Cepastat Lozenge) 1 lozenge Q6 PRN MM SORE THROAT; Start 11/04/16 at 16: 30 Ferrous Sulfate (Ferrous Sulfate (Ec)) 325 mg DAILY PO Last administered on 08:29; Admin Dose 325 MG; Start 11/05/16 at 09:00 Folic Acid (Folic Acid) 1 mg DAILY PO Last administered on 11/11/16 08:29; Admin Dose 1 MG; Start 11/05/16 at 09:00 Multivitamins Therapeutic (Theragran) 1 tab DAILY PO Last administered on 08:29; Admin Dose 1 TAB; Start 11/05/16 at 09:00 Eye Lubricant (Artificial Tears Oph) 2 drop Q6H PRN BOTH EYES DRY EYES; Start 11/04/16 at 16:30 Amlodipine Besylate (Norvasc) 5 mg DAILY PO Last administered on 11/11/16 08: 29; Admin Dose 5 MG; Start 11/05/16 at 09:00 Trazodone HCl (Desyrel) 50 mg Q4H PRN PO ANXIETY; Start 11/04/16 at 16:30 Morphine Sulfate (morphine) 4 mg Q4H PRN IV PAIN LEVEL 7-10 Last administered on 11/11/16 10:42; Admin Dose 4 MG; Start 11/05/16 at 00:00 Escitalopram Oxalate (Lexapro) 10 mg DAILY PO Last administered on 11/11/16 08 :29; Admin Dose 10 MG; Start 11/06/16 at 13:30 Enoxaparin Sodium (Lovenox) 30 mg DAILY SC Last administered on 11/09/16 08:47 ; Admin Dose 30 MG; Start 11/07/16 at 09:00; Status Future Hold Hydralazine HCl (Apresoline) 10 mg Q4H PRN IV SBP >160 Last administered on 11/09 20:03; Admin Dose 10 MG; Start 11/06/16 at 16:00 Lorazepam 0.5 mg 0.5 mg Q6H PRN IV ANXIETY Last administered on 11/08/16 15:18 ; Admin Dose 0.5 MG; Start 11/06/16 at 18:30 Potassium Chloride 30 meq/ Dextrose/Sodium Chloride 1,015 ml @ 75 mls/hr [id number] IV Last administered on 11/11/16 05:28; Admin Dose 75 MLS/HR; Start at 17:41 Piperacillin Sod/ Tazobactam Sod (Zosyn 2.25gm/ 50ml (Pmx)) 50 ml @ 100 mls/hr Q8 IVPB Last administered on 11/11/16t 14:09; Admin Dose 100 MLS/HR; Start 11/10 at 22:00 Acetaminophen (Tylenol Liquid) 650 mg Q4H PRN GTB PAIN AND OR ELEVATED TEMP; Start 11/11/16 at 11:00 Docusate Sodium (Colace Liquid Cup) 100 mg BID GTB ; Start 11/11/16 at 21:00 DAHIANA CANTOR MD November 11, 2016 15:52
[2016-11-11] MEDS: DOCUSATE SODIUM 10 MG/ML (10ML CUP) GTB SCH (21:30)
[2016-11-12 00:08] VITALS: PULSE 98
[2016-11-12 00:32] VITALS: BP 169/87; RESP 16
[2016-11-12] MEDS: PIPER-TAZO 2.25 GM (PMX) 50 ML IVPB SCH ×3 (05:53→21:14)
[2016-11-12 07:40] VITALS: BP 143/84; RESP 18
[2016-11-12 08:20] LABS: ADD SCAN DIFF NO
[2016-11-12 08:27] LABS: BASOPHILS % 0.1 % (0.0-2.0); EOSINOPHILS # 0.3 10^3/ul (0.0-0.5); EOSINOPHILS % 2.3 % (0.0-7.0); HEMATOCRIT 31.1 % (37.0-47.0); HEMOGLOBIN 10.3 g/dl (12.0-16.0); LYMPHOCYTES # 0.9 10^3/ul (0.8-2.9); LYMPHOCYTES % 6.5 % (15.0-51.0); MEAN CORPUSCULAR HEMOGLOBIN 27.9 pg (29.0-33.0); MEAN CORPUSCULAR HGB CONC 33.1 g/dl (32.0-37.0); MEAN CORPUSCULAR VOLUME 84.3 fl (82.0-101.0); MEAN PLATELET VOLUME 9.7 fl (7.4-10.4); MONOCYTE # 0.6 10^3/ul (0.3-0.9); MONOCYTES % 3.9 % (0.0-11.0); NEUTROPHIL # 12.2 10^3/ul (1.6-7.5); NEUTROPHILS % 86.5 % (39.0-77.0); PLATELET COUNT 419 10^3/UL (140-415); RED BLOOD COUNT 3.69 10^6/ul (4.20-5.40); RED CELL DISTRIBUTION WIDTH 15.2 % (11.5-14.5); WHITE BLOOD COUNT 14.1 10^3/ul (4.8-10.8)
[2016-11-12 08:55] LABS: ALBUMIN 2.7 g/dl (3.3-4.9); ALBUMIN/GLOBULIN RATIO 0.65; BILIRUBIN,INDIRECT 0.2 mg/dl (0-1.1); BILIRUBIN,TOTAL 0.2 mg/dl (0.2-1.3); CALCIUM 8.7 mg/dl (8.4-10.2); CREATININE 0.65 mg/dl (0.44-1.00); POTASSIUM 4.9 mmol/L (3.5-5.1); TOTAL PROTEIN 6.8 g/dl (6.1-8.1)
[2016-11-12] MEDS: DOCUSATE SODIUM 10 MG/ML (10ML CUP) GTB SCH ×2 (09:21→21:14)
[2016-11-12] MEDS: MULTIVITAMINS THERAPEUTIC TAB PO SCH (09:22)
[2016-11-12] MEDS: FERROUS SULFATE (EC) 325 MG TAB PO SCH (09:22)
[2016-11-12] MEDS: AMLODIPINE 5 MG TAB PO SCH (09:22)
[2016-11-12] MEDS: ASCORBIC ACID 500 MG TAB PO SCH (09:22)
[2016-11-12] MEDS: ESCITALOPRAM 10 MG TAB PO SCH (09:22)
[2016-11-12] MEDS: FOLIC ACID 1 MG TAB PO SCH (09:22)
[2016-11-12] MEDS: morphine 4 MG/ML VIAL IV PRN (09:34)
--- NOTE | 2016-11-12 10:56 | CONS ---
Date/Time of Note Date/Time of Note DATE: 11/12/16 TIME: 10:55 Assessment/Plan Assessment/Plan Additional Assessment/Plan Additional Assessment/Plan IMPRESSION: 1. Cachexia. 2. Malnutrition. 3. Dysphagia. 4. Gallstones with dilated biliary system, mild elevation of alkaline phosphatase. Biliary pathology cannot be absolutely ruled out. MRCP is negative for bile duct stone. Patient has no abdominal pain or tenderness. 5. Pneumonia. 6. Hypertension. 7. Dementia. 8. Anemia. 9. Status post PEG patient is tolerating feeding 10. Leukocytosis Plan Continue present care Slowly increase feeding Continue antibiotic Monitor WBC count Patient clinically looks better and more awake and alert Consultation Date/Type/Reason Admit Date/Time November 04, 2016 at 14:31 24 HR Interval Summary Constitutional: no complaints Exam/Review of Systems Vital Signs Vitals Vital Signs Date Time Temp Pulse Resp B/P Pulse Ox O2 Delivery O2 Flow Rate FiO2 11/12/16 07:40 97.1 94 18 143/84 98 11/10/16 13:30 Nasal Cannula 2.0 Intake and Output 11/11/16 11/11/16 11/12/16 15:00 23:00 07:00 Intake Total 1715 ml 830 ml Balance 1715 ml 830 ml Exam Constitutional: alert, oriented, well developed Psych: nl mood/affect, no complaints Head: atraumatic, normocephalic Eyes: EOMI, PERRL, nl conjunctiva, nl lids, nl sclera ENMT: nl external ears & nose, nl lips & teeth, nl nasal mucosa & septum Neck: non-tender, supple Respiratory: clear to auscultation, normal air movement Cardiovascular: nl pulses, regular rate and rhythm Gastrointestinal: nl liver, spleen, non-tender, soft Musculoskeletal: nl extremities to inspection, nl gait and stance Extremities: normal pulses Neurological: SUPERVISOR RIVETING II-XII intact, nl mental status, nl speech, nl strength Skin: nl turgor, No rash or lesions Lymph: nl lymph nodes Results Result Diagram: 11/12/1615 11/12/16714 Results 24 hrs Laboratory Tests Test 11/12/16 07:15 White Blood Count 14.1 #H Red Blood Count 3.69 L Hemoglobin 10.3 L Hematocrit 31.1 L Mean Corpuscular Volume 84.3 Mean Corpuscular Hemoglobin 27.9 L Mean Corpuscular Hemoglobin Concent 33.1 Red Cell Distribution Width 15.2 H Platelet Count 419 H Mean Platelet Volume 9.7 Neutrophils % 86.5 H Lymphocytes % 6.5 L Monocytes % 3.9 Eosinophils % 2.3 Basophils % 0.1 Nucleated Red Blood Cells % 0.0 Neutrophils # 12.2 H Lymphocytes # 0.9 Monocytes # 0.6 Eosinophils # 0.3 Basophils # 0.0 Nucleated Red Blood Cells # 0.0 Sodium Level 127 L Potassium Level 4.9 Chloride Level 99 Carbon Dioxide Level 23 Anion Gap 10 Blood Urea Nitrogen 17 Creatinine 0.65 Glucose Level 139 Calcium Level 8.7 Total Bilirubin 0.2 Direct Bilirubin 0.00 Indirect Bilirubin 0.2 Aspartate Amino Transf (AST/SGOT) 37 Alanine Aminotransferase (ALT/SGPT) 32 Alkaline Phosphatase 133 H Total Protein 6.8 Albumin 2.7 L Globulin 4.10 H Albumin/Globulin Ratio 0.65 Medications Medications Current Medications Ascorbic Acid (Vitamin C) 500 mg DAILY PO Last administered on 11/12/16 09:22 ; Admin Dose 500 MG; Start 11/05/16 at 09:00 Phenol (Cepastat Lozenge) 1 lozenge Q6 PRN MM SORE THROAT; Start 11/04/16 at 16: 30 Ferrous Sulfate (Ferrous Sulfate (Ec)) 325 mg DAILY PO Last administered on 09:22; Admin Dose 325 MG; Start 11/05/16 at 09:00 Folic Acid (Folic Acid) 1 mg DAILY PO Last administered on 11/12/16 09:22; Admin Dose 1 MG; Start 11/05/16 at 09:00 Multivitamins Therapeutic (Theragran) 1 tab DAILY PO Last administered on 09:22; Admin Dose 1 TAB; Start 11/05/16 at 09:00 Eye Lubricant (Artificial Tears Oph) 2 drop Q6H PRN BOTH EYES DRY EYES; Start 11/04/16 at 16:30 Amlodipine Besylate (Norvasc) 5 mg DAILY PO Last administered on 11/12/16 09: 22; Admin Dose 5 MG; Start 11/05/16 at 09:00 Trazodone HCl (Desyrel) 50 mg Q4H PRN PO ANXIETY; Start 11/04/16 at 16:30 Morphine Sulfate (morphine) 4 mg Q4H PRN IV PAIN LEVEL 7-10 Last administered on 11/12/16 09:34; Admin Dose 4 MG; Start 11/05/16 at 00:00 Escitalopram Oxalate (Lexapro) 10 mg DAILY PO Last administered on 11/12/16 09 :22; Admin Dose 10 MG; Start 11/06/16 at 13:30 Enoxaparin Sodium (Lovenox) 30 mg DAILY SC Last administered on 11/09/16 08:47 ; Admin Dose 30 MG; Start 11/07/16 at 09:00; Status Future Hold Hydralazine HCl (Apresoline) 10 mg Q4H PRN IV SBP >160 Last administered on 11/09 20:03; Admin Dose 10 MG; Start 11/06/16 at 16:00 Lorazepam 0.5 mg 0.5 mg Q6H PRN IV ANXIETY Last administered on 11/08/16 15:18 ; Admin Dose 0.5 MG; Start 11/06/16 at 18:30 Potassium Chloride 30 meq/ Dextrose/Sodium Chloride 1,015 ml @ 30 mls/hr Q24H IV Last administered on 11/11/16 22:22; Admin Dose 75 MLS/HR; Start 11/08/16 at 17:41 Piperacillin Sod/ Tazobactam Sod (Zosyn 2.25gm/ 50ml (Pmx)) 50 ml @ 100 mls/hr Q8 IVPB Last administered on 11/12/16 05:53; Admin Dose 100 MLS/HR; Start 11/10 at 22:00 Acetaminophen (Tylenol Liquid) 650 mg Q4H PRN GTB PAIN AND OR ELEVATED TEMP; Start 11/11/16 at 11:00 Docusate Sodium (Colace Liquid Cup) 100 mg BID GTB Last administered on 09:21; Admin Dose 100 MG; Start 11/11/16 at 21:00 DAHIANA CANTOR MD November 12, 2016 10:56
[2016-11-12 11:33] VITALS: BP 121/71; RESP 20
--- NOTE | 2016-11-12 14:43 | PN ---
DATE: 11/12/2016 SUBJECTIVE: The patient keeps moaning, unable to localize the pain. VITAL SIGNS: Afebrile, blood pressure 142/84. Respiratory 20 per minute, pulse ox 98%. HEENT: Head normocephalic. No pallor, cyanosis, or icterus. Tongue is moist. NECK: Supple. No thyromegaly, bruits or lymphadenopathy. CHEST: Clinically clear anteriorly. ABDOMEN: Unable to elicit tenderness. Patient keeps moaning. EXTREMITIES: No edema. Homans negative. LABORATORY DATA: WBC count 14.1, hematocrit 31.1, platelet count 419,000. Sodium 127, potassium 4. 9, BUN 17, creatinine 0.65. Alkaline phosphatase 133. IMPRESSION: 1. Leukocytosis, etiology unclear. 2. Recurrent urinary tract infection? 3. ?Cholecystitis. Clinically does not appear to have cholecystitis. 4. Malnutrition, status post PEG placement for dysphagia. 5. Chronic anemia. 6. Hyponatremia. 7. Bronchiectasis. 8. Nephrolithiasis. We will need to repeat a chest x-ray to rule out pneumonia. Repeat urine cultures. PLAN: Continue IV antibiotics and observe. ID consultation will be requested with Dr. John Bahena. Dictated By: KASSI RICARDO MD, SR/SHANTEL Conf#: [id number] DID#: [id number]
[2016-11-12] MEDS: SOD CHLORIDE 0.9% 1,000 ML IV SCH (14:44)
[2016-11-12 15:56] VITALS: BP 144/74; RESP 20
[2016-11-12 20:06] VITALS: BP 108/71; RESP 16
[2016-11-13 00:24] VITALS: BP 139/73; PULSE 87; RESP 18
[2016-11-13 01:10] VITALS: BP 111/69; PULSE 90; RESP 18
[2016-11-13] MEDS: morphine 4 MG/ML VIAL IV PRN ×2 (04:02→21:06)
[2016-11-13 05:48] LABS: ADD SCAN DIFF NO
[2016-11-13 05:57] LABS: BASOPHILS % 0.1 % (0.0-2.0); EOSINOPHILS # 0.1 10^3/ul (0.0-0.5); HEMATOCRIT 28.2 % (37.0-47.0); HEMOGLOBIN 9.3 g/dl (12.0-16.0); LYMPHOCYTES # 1.1 10^3/ul (0.8-2.9); LYMPHOCYTES % 7.8 % (15.0-51.0); MEAN CORPUSCULAR HEMOGLOBIN 27.7 pg (29.0-33.0); MEAN CORPUSCULAR VOLUME 83.9 fl (82.0-101.0); MEAN PLATELET VOLUME 9.8 fl (7.4-10.4); MONOCYTE # 0.8 10^3/ul (0.3-0.9); MONOCYTES % 5.7 % (0.0-11.0); NEUTROPHIL # 11.5 10^3/ul (1.6-7.5); NEUTROPHILS % 84.6 % (39.0-77.0); PLATELET COUNT 398 10^3/UL (140-415); RED BLOOD COUNT 3.36 10^6/ul (4.20-5.40); RED CELL DISTRIBUTION WIDTH 15.5 % (11.5-14.5); WHITE BLOOD COUNT 13.6 10^3/ul (4.8-10.8)
[2016-11-13 06:05] LABS: CALCIUM 8.5 mg/dl (8.4-10.2); CREATININE 0.66 mg/dl (0.44-1.00); MAGNESIUM 1.8 mg/dl (1.7-2.5); POTASSIUM 4.4 mmol/L (3.5-5.1)
[2016-11-13] MEDS: PIPER-TAZO 2.25 GM (PMX) 50 ML IVPB SCH ×3 (06:34→23:19)
--- NOTE | 2016-11-13 07:07 | CONS ---
Date/Time of Note Date/Time of Note DATE: 11/13/16 TIME: 06:52 Assessment/Plan Assessment/Plan Chief Complaint/Hosp Course 1) uti - kleb repeat u/a and urine cx, doubt this is an active problem 2) interstitial lung disease hard to say if there is an acute process on top of this chronic process on zosyn will add doxycycline for atypical coverage and MRSA coverage zosyn has good coverage for aspiration pneumonia too with bronchiectasis more resistant organisms are often found so if wbc is not improving would change zosyn to merrem check procalcitonin 3) distended GB with gallstones and thickened GB wall doubt acute infection with GB but a more chronic process is very possible doubt she is a surgical candidate so I don't see the advantage of getting a HIDA scan to confirm this antibiotics such as zosyn can be helpful for a short course (7-10 days) and would continue with this 4) dementia 5) g-tube 6) malnutrition low albumin pt on tube feeds now 7) hyponatremia will check urine sodium, 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 Problems: Consultation Date/Type/Reason Admit Date/Time November 04, 2016 at 14:31 Date of Consultation: November 13, 2016 Type of Consultation: ID Hx of Present Illness pt unable to give any history spoke to nurse, no current vomiting or diarrhea she was given some MS due to perceived back pain she is tolerating her TF she came in with SOB and dysuria She has chronic pulmonary changes noted on CXR She is noted to have extended GB with thickened GB wall and gallstones Constitutional: no complaints Psychological: nl mood/affect, no complaints Past Medical History HTN, dementia, gallstones, osteoporosis, L calcaneal fx Social History Smoking Status: Unknown if ever smoked Exam/Review of Systems Vital Signs Vitals Vital Signs Date Time Temp Pulse Resp B/P Pulse Ox O2 Delivery O2 Flow Rate FiO2 11/13/16 01:10 97.4 90 18 111/69 98 Room Air 11/10/16 13:30 2.0 Intake and Output 11/12/16 11/12/16 11/13/16 15:00 23:00 07:00 Intake Total 700 ml 1180 ml Balance 700 ml 1180 ml Exam pts eyes are open and she tracks but does not verbalize when asked questions or follow commands Constitutional: alert Head: normocephalic Eyes: nl sclera ENMT: mucosa pink and moist Respiratory: other (bilateral crackles) Cardiovascular: regular rate and rhythm Gastrointestinal: other (pt has binder on but nurse reports g-tube site was good, no pain on exam) Extremities: other (no edeman and pt is somewhat rolled up in a ball) Results Result Diagram: 11/12/16 0715 11/13/16 0505 Results 24 hrs Laboratory Tests Test 11/12/16 07:15 11/13/16 05:05 White Blood Count 14.1 #H Red Blood Count 3.69 L Hemoglobin 10.3 L Hematocrit 31.1 L Mean Corpuscular Volume 84.3 Mean Corpuscular Hemoglobin 27.9 L Mean Corpuscular Hemoglobin Concent 33.1 Red Cell Distribution Width 15.2 H Platelet Count 419 H Mean Platelet Volume 9.7 Neutrophils % 86.5 H Lymphocytes % 6.5 L Monocytes % 3.9 Eosinophils % 2.3 Basophils % 0.1 Nucleated Red Blood Cells % 0.0 Neutrophils # 12.2 H Lymphocytes # 0.9 Monocytes # 0.6 Eosinophils # 0.3 Basophils # 0.0 Nucleated Red Blood Cells # 0.0 Sodium Level 127 L 125 L Potassium Level 4.9 4.4 Chloride Level 99 95 L Carbon Dioxide Level 23 26 Anion Gap 10 8 Blood Urea Nitrogen 17 17 Creatinine 0.65 0.66 Glucose Level 139 89 # Calcium Level 8.7 8.5 Total Bilirubin 0.2 Direct Bilirubin 0.00 Indirect Bilirubin 0.2 Aspartate Amino Transf (AST/SGOT) 37 Alanine Aminotransferase (ALT/SGPT) 32 Alkaline Phosphatase 133 H Total Protein 6.8 Albumin 2.7 L Globulin 4.10 H Albumin/Globulin Ratio 0.65 Magnesium Level 1.8 Medications Medications Current Medications Ascorbic Acid (Vitamin C) 500 mg DAILY PO Last administered on 11/12/16 09:22 ; Admin Dose 500 MG; Start 11/05/16 at 09:00 Phenol (Cepastat Lozenge) 1 lozenge Q6 PRN MM SORE THROAT; Start 11/04/16 at 16: 30 Ferrous Sulfate (Ferrous Sulfate (Ec)) 325 mg DAILY PO Last administered on 09:22; Admin Dose 325 MG; Start 11/05/16 at 09:00 Folic Acid (Folic Acid) 1 mg DAILY PO Last administered on 11/12/16 09:22; Admin Dose 1 MG; Start 11/05/16 at 09:00 Multivitamins Therapeutic (Theragran) 1 tab DAILY PO Last administered on 09:22; Admin Dose 1 TAB; Start 11/05/16 at 09:00 Eye Lubricant (Artificial Tears Oph) 2 drop Q6H PRN BOTH EYES DRY EYES; Start 11/04/16 at 16:30 Amlodipine Besylate (Norvasc) 5 mg DAILY PO Last administered on 11/12/16 09: 22; Admin Dose 5 MG; Start 11/05/16 at 09:00 Trazodone HCl (Desyrel) 50 mg Q4H PRN PO ANXIETY; Start 11/04/16 at 16:30 Morphine Sulfate (morphine) 4 mg Q4H PRN IV PAIN LEVEL 7-10 Last administered on 11/13/16 04:02; Admin Dose 4 MG; Start 11/05/16 at 00:00 Escitalopram Oxalate (Lexapro) 10 mg DAILY PO Last administered on 11/12/16 09 :22; Admin Dose 10 MG; Start 11/06/16 at 13:30 Enoxaparin Sodium (Lovenox) 30 mg DAILY SC Last administered on 11/09/16 08:47 ; Admin Dose 30 MG; Start 11/07/16 at 09:00; Status Future Hold Hydralazine HCl (Apresoline) 10 mg Q4H PRN IV SBP >160 Last administered on 11/09 20:03; Admin Dose 10 MG; Start 11/06/16 at 16:00 Lorazepam 0.5 mg 0.5 mg Q6H PRN IV ANXIETY Last administered on 11/08/16 15:18 ; Admin Dose 0.5 MG; Start 11/06/16 at 18:30 Piperacillin Sod/ Tazobactam Sod (Zosyn 2.25gm/ 50ml (Pmx)) 50 ml @ 100 mls/hr Q8 IVPB Last administered on 11/13/16 06:34; Admin Dose 100 MLS/HR; Start 11/10 at 22:00 Acetaminophen (Tylenol Liquid) 650 mg Q4H PRN GTB PAIN AND OR ELEVATED TEMP; Start 11/11/16 at 11:00 Docusate Sodium 100 mg 100 mg BID GTB Last administered on 11/12/16 21:14; Admin Dose 100 MG; Start 11/11/16 at 21:00 Sodium Chloride (NS) 1,000 ml @ 60 mls/hr [id number] IV Last administered on 11/12 14:44; Admin Dose 60 MLS/HR; Start 11/12/16 at 14:30 FOUZIA HAWKINS MD November 13, 2016 07:03
[2016-11-13] MEDS: SOD CHLORIDE 0.9% 1,000 ML IV SCH (07:10)
--- NOTE | 2016-11-13 07:21 | RADRPT ---
PROCEDURE: XR Chest. CLINICAL INDICATION: Pneumonia TECHNIQUE: A single AP view of the chest was obtained. COMPARISON: Chest x-ray dated 11/07/2016 FINDINGS: There are diffuse coarse reticulonodular interstitial opacities. There is more coalescent consolida tion of the apical segment of the right upper lobe. No pleural effusion or pneumothorax is seen. Th e cardiomediastinal silhouette is upper limits of normal in size. Calcifications are seen within th e aortic arch. The osseous structures changes. IMPRESSION: 1. Diffuse coarse reticulonodular interstitial opacities may reflect a combination of chronic lung changes with superimposed interstitial edema or pneumonia. Overall, no significant interval change. 2. Focal consolidation of the apical segment of the right upper lobe. Continued follow-up is advis ed. Consider CT chest for further evaluation. 3. Aortic atherosclerosis. RPTAT: HH .Yanni Lara MD, MD Date Time Electronically viewed and signed by .Yanni Lara MD, on 11/13/2016 07:21 .G/
[2016-11-13 08:24] VITALS: BP 112/63; RESP 18
[2016-11-13] MEDS: ESCITALOPRAM 10 MG TAB PO SCH (09:17)
[2016-11-13] MEDS: FOLIC ACID 1 MG TAB PO SCH (09:17)
[2016-11-13] MEDS: MULTIVITAMINS THERAPEUTIC TAB PO SCH (09:17)
[2016-11-13] MEDS: ASCORBIC ACID 500 MG TAB PO SCH (09:17)
[2016-11-13] MEDS: AMLODIPINE 5 MG TAB PO SCH (09:18)
[2016-11-13] MEDS: DOCUSATE SODIUM 10 MG/ML (10ML CUP) GTB SCH ×2 (09:18→20:32)
[2016-11-13] MEDS: DOXYCYCLINE 100 MG TAB GTB SCH ×2 (09:18→20:32)
[2016-11-13] MEDS: FERROUS SULFATE (EC) 325 MG TAB PO SCH (11:00)
[2016-11-13 12:32] LABS: ADD UMIC YES; URINE BILIRUBIN (Dip) NEGATIVE (NEGATIVE); URINE BLOOD (Dip) TRACE (NEGATIVE); URINE COLOR LT. YELLOW (YELLOW); URINE GLUCOSE (Dip) NEGATIVE (NEGATIVE); URINE KETONES (Dip) NEGATIVE (NEGATIVE); URINE LEUKOCYTE ESTERASE (Dip) NEGATIVE (NEGATIVE); URINE NITRITE (Dip) NEGATIVE (NEGATIVE); URINE TOTAL PROTEIN (Dip) TRACE (NEGATIVE); URINE UROBILINOGEN (Dip) 1.0 E.U./dL (0.1-1.0)
--- NOTE | 2016-11-13 13:06 | CONS ---
Date/Time of Note Date/Time of Note DATE: 11/13/16 TIME: 13:05 Assessment/Plan Assessment/Plan Additional Assessment/Plan IMPRESSION: 1. Cachexia. 2. Malnutrition. 3. Dysphagia. 4. Gallstones with dilated biliary system, mild elevation of alkaline phosphatase. Biliary pathology cannot be absolutely ruled out. MRCP is negative for bile duct stone. Patient has no abdominal pain or tenderness. 5. Pneumonia. Also interstitial lung disease 6. Hypertension. 7. Dementia. 8. Anemia. 9. Status post PEG patient is tolerating feeding 10. Leukocytosis, patient is on Zosyn now Plan Continue present care Slowly increase feeding Continue antibiotic Monitor WBC count Patient clinically looks better and more awake and alert Consultation Date/Type/Reason Admit Date/Time November 04, 2016 at 14:31 Type of Consultation: ID [id number] HR Interval Summary Free Text/Dictation Patient more awake and alert She is making eye to eye contact Constitutional: no complaints Exam/Review of Systems Vital Signs Vitals Vital Signs Date Time Temp Pulse Resp B/P Pulse Ox O2 Delivery O2 Flow Rate FiO2 11/13/16 08:24 98.0 87 18 112/63 90 11/13/16 01:10 Room Air 11/10/16 13:30 2.0 Intake and Output 11/12/16 11/12/16 11/13/16 15:00 23:00 07:00 Intake Total 700 ml 1180 ml Balance 700 ml 1180 ml Exam Constitutional: alert, oriented, well developed Psych: nl mood/affect, no complaints Head: atraumatic, normocephalic Eyes: EOMI, PERRL, nl conjunctiva, nl lids, nl sclera ENMT: nl external ears & nose, nl lips & teeth, nl nasal mucosa & septum Neck: non-tender, supple Respiratory: clear to auscultation, normal air movement Cardiovascular: nl pulses, regular rate and rhythm Gastrointestinal: nl liver, spleen, non-tender, soft Musculoskeletal: nl extremities to inspection, nl gait and stance Extremities: normal pulses Neurological: COUNTER POCKET SEWER II-XII intact, nl mental status, nl speech, nl strength Skin: nl turgor, No rash or lesions Lymph: nl lymph nodes Results Result Diagram: 11/13/16 0505 11/13/16 0505 Results 24 hrs Laboratory Tests Test 11/13/16 05:05 11/13/16 11:49 White Blood Count 13.6 H Red Blood Count 3.36 L Hemoglobin 9.3 L Hematocrit 28.2 L Mean Corpuscular Volume 83.9 Mean Corpuscular Hemoglobin 27.7 L Mean Corpuscular Hemoglobin Concent 33.0 Red Cell Distribution Width 15.5 H Platelet Count 398 Mean Platelet Volume 9.8 Neutrophils % 84.6 H Lymphocytes % 7.8 L Monocytes % 5.7 Eosinophils % 1.0 Basophils % 0.1 Nucleated Red Blood Cells % 0.0 Neutrophils # 11.5 H Lymphocytes # 1.1 Monocytes # 0.8 Eosinophils # 0.1 Basophils # 0.0 Nucleated Red Blood Cells # 0.0 Sodium Level 125 L Potassium Level 4.4 Chloride Level 95 L Carbon Dioxide Level 26 Anion Gap 8 Blood Urea Nitrogen 17 Creatinine 0.66 Glucose Level 89 # Calcium Level 8.5 Magnesium Level 1.8 Urine Color LT. YELLOW Urine Clarity CLEAR Urine pH 7.0 Urine Specific [place] 1.020 Urine Ketones NEGATIVE Urine Nitrite NEGATIVE Urine Bilirubin NEGATIVE Urine Urobilinogen 1.0 E.U./dL Urine Leukocyte Esterase NEGATIVE Urine Microscopic RBC 5-10 Urine Microscopic WBC 2-5 Urine Hemoglobin TRACE Urine Random Sodium 140 H Urine Glucose NEGATIVE Urine Total Protein TRACE Medications Medications Current Medications Ascorbic Acid (Vitamin C) 500 mg DAILY PO Last administered on 11/13/16 09:17 ; Admin Dose 500 MG; Start 11/05/16 at 09:00 Phenol (Cepastat Lozenge) 1 lozenge Q6 PRN MM SORE THROAT; Start 11/04/16 at 16: 30 Folic Acid (Folic Acid) 1 mg DAILY PO Last administered on 11/13/16 09:17; Admin Dose 1 MG; Start 11/05/16 at 09:00 Multivitamins Therapeutic (Theragran) 1 tab DAILY PO Last administered on 09:17; Admin Dose 1 TAB; Start 11/05/16 at 09:00 Eye Lubricant (Artificial Tears Oph) 2 drop Q6H PRN BOTH EYES DRY EYES; Start 11/04/16 at 16:30 Amlodipine Besylate (Norvasc) 5 mg DAILY PO Last administered on 11/13/16 09: 18; Admin Dose 5 MG; Start 11/05/16 at 09:00 Trazodone HCl (Desyrel) 50 mg Q4H PRN PO ANXIETY; Start 11/04/16 at 16:30 Morphine Sulfate (morphine) 4 mg Q4H PRN IV PAIN LEVEL 7-10 Last administered on 11/13/16 04:02; Admin Dose 4 MG; Start 11/05/16 at 00:00 Escitalopram Oxalate (Lexapro) 10 mg DAILY PO Last administered on 11/13/16 09 :17; Admin Dose 10 MG; Start 11/06/16 at 13:30 Enoxaparin Sodium (Lovenox) 30 mg DAILY SC Last administered on 11/09/16 08:47 ; Admin Dose 30 MG; Start 11/07/16 at 09:00; Status Future Hold Hydralazine HCl (Apresoline) 10 mg Q4H PRN IV SBP >160 Last administered on 11/09 20:03; Admin Dose 10 MG; Start 11/06/16 at 16:00 Lorazepam 0.5 mg 0.5 mg Q6H PRN IV ANXIETY Last administered on 11/08/16 15:18 ; Admin Dose 0.5 MG; Start 11/06/16 at 18:30 Piperacillin Sod/ Tazobactam Sod (Zosyn 2.25gm/ 50ml (Pmx)) 50 ml @ 100 mls/hr Q8 IVPB Last administered on 11/13/16 06:34; Admin Dose 100 MLS/HR; Start 11/10 at 22:00 Acetaminophen (Tylenol Liquid) 650 mg Q4H PRN GTB PAIN AND OR ELEVATED TEMP; Start 11/11/16 at 11:00 Docusate Sodium 100 mg 100 mg BID GTB Last administered on 11/13/16 09:18; Admin Dose 100 MG; Start 11/11/16 at 21:00 Sodium Chloride (NS) 1,000 ml @ 60 mls/hr [id number] IV Last administered on 11/13 07:10; Admin Dose 60 MLS/HR; Start 11/12/16 at 14:30 Doxycycline Hyclate (Vibramycin) 100 mg BID GTB Last administered on 11/13/16 09:18; Admin Dose 100 MG; Start 11/13/16 at 09:00 Ferrous Sulfate (Ferrous Sulfate (Ec)) 325 mg DAILY@11 PO Last administered on 11/13/16 11:00; Admin Dose 325 MG; Start 11/13/16 at 11:00 DAHIANA CANTOR MD November 13, 2016 13:06
--- NOTE | 2016-11-13 15:50 | PN ---
DATE: 11/13/2016 SUBJECTIVE: The patient appears more awake and alert, not moaning in pain today. OBJECTIVE: VITAL SIGNS: Afebrile, blood pressure 112/63, O2 saturation 90% on room air. CHEST: Few crackles heard at the bases. HEART: S1, S2 heard with no definite gallops. ABDOMEN: Soft. No definite tenderness. EXTREMITIES: No edema. Dr. Bahena' ID consultation greatly appreciated. LABORATORY DATA: Sodium 125, potassium 4.4, BUN 17, creatinine 0.66. WBC count 13.6, hematocrit 28 .2, platelet count is 398,000. Repeat urine culture is pending. IMAGING: Chest x-ray from yesterday shows diffuse interstitial opacities, combination of chronic bull ng changes with superimposed interstitial edema or pneumonia. Focal consolidation in the apical seg ment of the right upper lobe. IMPRESSION: 1. Severe hyponatremia, rule out syndrome of inappropriate antidiuretic hormone, especially conside ring the lung process. Possibility of lung malignancy to be considered. 2. Status post urinary tract infection. 3. Severe malnutrition, status post percutaneous endoscopic gastrostomy placement. 4. Severe anemia. 5. Nephrolithiasis. PLAN: We will continue ID recommendations per Dr. Bahena. Obtain serum and urine osmolality and urin e sodium. Restrict fluid intake. Consider CT of the chest if there is no significant improvement. Dictated By: KASSI RICARDO MD, SR/NTS Conf#: [id number] DID#: [id number]
[2016-11-13 20:05] VITALS: BP 144/80; RESP 20
[2016-11-14 05:15] LABS: ADD SCAN DIFF NO
[2016-11-14 05:30] LABS: BASOPHILS % 0.2 % (0.0-2.0); EOSINOPHILS # 0.3 10^3/ul (0.0-0.5); EOSINOPHILS % 2.5 % (0.0-7.0); HEMATOCRIT 27.3 % (37.0-47.0); HEMOGLOBIN 9.1 g/dl (12.0-16.0); LYMPHOCYTES # 1.3 10^3/ul (0.8-2.9); LYMPHOCYTES % 10.6 % (15.0-51.0); MEAN CORPUSCULAR HEMOGLOBIN 27.7 pg (29.0-33.0); MEAN CORPUSCULAR HGB CONC 33.3 g/dl (32.0-37.0); MEAN CORPUSCULAR VOLUME 83.2 fl (82.0-101.0); MEAN PLATELET VOLUME 9.7 fl (7.4-10.4); MONOCYTE # 0.8 10^3/ul (0.3-0.9); MONOCYTES % 6.4 % (0.0-11.0); NEUTROPHIL # 9.7 10^3/ul (1.6-7.5); NEUTROPHILS % 79.6 % (39.0-77.0); PLATELET COUNT 432 10^3/UL (140-415); RED BLOOD COUNT 3.28 10^6/ul (4.20-5.40); RED CELL DISTRIBUTION WIDTH 15.4 % (11.5-14.5); WHITE BLOOD COUNT 12.2 10^3/ul (4.8-10.8)
[2016-11-14] MEDS: PIPER-TAZO 2.25 GM (PMX) 50 ML IVPB SCH ×3 (05:43→21:35)
[2016-11-14 06:03] LABS: ALBUMIN 2.4 g/dl (3.3-4.9)
[2016-11-14 06:04] LABS: POTASSIUM 3.9 mmol/L (3.5-5.1)
[2016-11-14 06:06] LABS: BILIRUBIN,INDIRECT 0.1 mg/dl (0-1.1); BILIRUBIN,TOTAL 0.1 mg/dl (0.2-1.3); CREATININE 0.66 mg/dl (0.44-1.00)
[2016-11-14 06:07] LABS: ALBUMIN/GLOBULIN RATIO 0.64; CALCIUM 8.4 mg/dl (8.4-10.2); TOTAL PROTEIN 6.1 g/dl (6.1-8.1)
[2016-11-14 07:56] VITALS: BP 109/63; RESP 20
[2016-11-14] MEDS: SOD CHLORIDE 0.9% 1,000 ML IV SCH (09:21)
[2016-11-14] MEDS: ASCORBIC ACID 500 MG TAB PO SCH (09:21)
[2016-11-14] MEDS: DOCUSATE SODIUM 10 MG/ML (10ML CUP) GTB SCH ×2 (09:21→21:35)
[2016-11-14] MEDS: ESCITALOPRAM 10 MG TAB PO SCH (09:21)
[2016-11-14] MEDS: FOLIC ACID 1 MG TAB PO SCH (09:22)
[2016-11-14] MEDS: AMLODIPINE 5 MG TAB PO SCH (09:22)
[2016-11-14] MEDS: MULTIVITAMINS THERAPEUTIC TAB PO SCH (09:22)
[2016-11-14] MEDS: DOXYCYCLINE 100 MG TAB GTB SCH ×2 (09:23→21:35)
[2016-11-14] MEDS: FERROUS SULFATE (EC) 325 MG TAB PO SCH (12:30)
[2016-11-14] MEDS: morphine 4 MG/ML VIAL IV PRN (12:33)
--- NOTE | 2016-11-14 13:49 | CONS ---
Date/Time of Note Date/Time of Note DATE: 11/14/16 TIME: 13:49 Assessment/Plan Assessment/Plan Additional Assessment/Plan IMPRESSION: 1. Cachexia. 2. Malnutrition. 3. Dysphagia. 4. Gallstones with dilated biliary system, mild elevation of alkaline phosphatase. Biliary pathology cannot be absolutely ruled out. MRCP is negative for bile duct stone. Patient has no abdominal pain or tenderness. 5. Pneumonia. Also interstitial lung disease 6. Hypertension. 7. Dementia. 8. Anemia. 9. Status post PEG patient is tolerating feeding 10. Leukocytosis, patient is on Zosyn now Plan Continue present care Slowly increase feeding Continue antibiotic Monitor WBC count Patient clinically looks better and more awake and alert Consultation Date/Type/Reason Admit Date/Time November 04, 2016 at 14:31 Type of Consultation: ID [id number] HR Interval Summary Constitutional: improved Exam/Review of Systems Vital Signs Vitals Vital Signs Date Time Temp Pulse Resp B/P Pulse Ox O2 Delivery O2 Flow Rate FiO2 11/14/16 07:56 98.9 85 20 109/63 93 11/13/16 01:10 Room Air 11/10/16 13:30 2.0 Intake and Output 11/13/16 11/13/16 11/14/16 15:00 23:00 07:00 Intake Total 790 ml 650 ml 1140 ml Output Total 800 ml Balance 790 ml 650 ml 340 ml Exam Constitutional: alert, oriented, well developed Psych: nl mood/affect, no complaints Head: atraumatic, normocephalic Eyes: EOMI, PERRL, nl conjunctiva, nl lids, nl sclera ENMT: nl external ears & nose, nl lips & teeth, nl nasal mucosa & septum Neck: non-tender, supple Respiratory: clear to auscultation, normal air movement Cardiovascular: nl pulses, regular rate and rhythm Gastrointestinal: nl liver, spleen, non-tender, soft Musculoskeletal: nl extremities to inspection, nl gait and stance Extremities: normal pulses Neurological: BOTTLE CARRIER II-XII intact, nl mental status, nl speech, nl strength Skin: nl turgor, No rash or lesions Lymph: nl lymph nodes Results Result Diagram: 11/14/16 0425 11/14/16 0425 Results 24 hrs Laboratory Tests Test 11/13/16 16:20 11/13/16 17:00 11/14/16 04:25 Osmolality 263 L Urine Osmolality 398 Urine Random Sodium 143 H White Blood Count 12.2 H Red Blood Count 3.28 L Hemoglobin 9.1 L Hematocrit 27.3 L Mean Corpuscular Volume 83.2 Mean Corpuscular Hemoglobin 27.7 L Mean Corpuscular Hemoglobin Concent 33.3 Red Cell Distribution Width 15.4 H Platelet Count 432 H Mean Platelet Volume 9.7 Neutrophils % 79.6 H Lymphocytes % 10.6 L Monocytes % 6.4 Eosinophils % 2.5 Basophils % 0.2 Nucleated Red Blood Cells % 0.0 Neutrophils # 9.7 H Lymphocytes # 1.3 Monocytes # 0.8 Eosinophils # 0.3 Basophils # 0.0 Nucleated Red Blood Cells # 0.0 Sodium Level 124 L Potassium Level 3.9 Chloride Level 90 L Carbon Dioxide Level 26 Anion Gap 12 Blood Urea Nitrogen 19 Creatinine 0.66 Glucose Level 140 # Calcium Level 8.4 Magnesium Level 1.7 Total Bilirubin 0.1 L Direct Bilirubin 0.00 Indirect Bilirubin 0.1 Aspartate Amino Transf (AST/SGOT) 26 Alanine Aminotransferase (ALT/SGPT) 31 Alkaline Phosphatase 107 Total Protein 6.1 Albumin 2.4 L Globulin 3.70 H Albumin/Globulin Ratio 0.64 Medications Medications Current Medications Ascorbic Acid (Vitamin C) 500 mg DAILY PO Last administered on 11/14/16 09:21 ; Admin Dose 500 MG; Start 11/05/16 at 09:00 Phenol (Cepastat Lozenge) 1 lozenge Q6 PRN MM SORE THROAT; Start 11/04/16 at 16: 30 Folic Acid (Folic Acid) 1 mg DAILY PO Last administered on 11/14/16 09:22; Admin Dose 1 MG; Start 11/05/16 at 09:00 Multivitamins Therapeutic (Theragran) 1 tab DAILY PO Last administered on 09:22; Admin Dose 1 TAB; Start 11/05/16 at 09:00 Eye Lubricant (Artificial Tears Oph) 2 drop Q6H PRN BOTH EYES DRY EYES; Start 11/04/16 at 16:30 Amlodipine Besylate (Norvasc) 5 mg DAILY PO Last administered on 11/14/16 09: 22; Admin Dose 5 MG; Start 11/05/16 at 09:00 Trazodone HCl (Desyrel) 50 mg Q4H PRN PO ANXIETY; Start 11/04/16 at 16:30 Morphine Sulfate (morphine) 4 mg Q4H PRN IV PAIN LEVEL 7-10 Last administered on 11/14/16 12:33; Admin Dose 4 MG; Start 11/05/16 at 00:00 Escitalopram Oxalate (Lexapro) 10 mg DAILY PO Last administered on 11/14/16 09 :21; Admin Dose 10 MG; Start 11/06/16 at 13:30 Enoxaparin Sodium (Lovenox) 30 mg DAILY SC Last administered on 11/09/16 08:47 ; Admin Dose 30 MG; Start 11/07/16 at 09:00; Status Future Hold Hydralazine HCl (Apresoline) 10 mg Q4H PRN IV SBP >160 Last administered on 11/09 20:03; Admin Dose 10 MG; Start 11/06/16 at 16:00 Lorazepam 0.5 mg 0.5 mg Q6H PRN IV ANXIETY Last administered on 11/08/16 15:18 ; Admin Dose 0.5 MG; Start 11/06/16 at 18:30 Piperacillin Sod/ Tazobactam Sod (Zosyn 2.25gm/ 50ml (Pmx)) 50 ml @ 100 mls/hr Q8 IVPB Last administered on 11/14/16 05:43; Admin Dose 100 MLS/HR; Start 11/10 at 22:00 Acetaminophen (Tylenol Liquid) 650 mg Q4H PRN GTB PAIN AND OR ELEVATED TEMP; Start 11/11/16 at 11:00 Docusate Sodium 100 mg 100 mg BID GTB Last administered on 11/14/16 09:21; Admin Dose 100 MG; Start 11/11/16 at 21:00 Sodium Chloride (NS) 1,000 ml @ 30 mls/hr Q24H IV Last administered on 09:21; Admin Dose 30 MLS/HR; Start 11/12/16 at 14:30 Doxycycline Hyclate (Vibramycin) 100 mg BID GTB Last administered on 11/14/16 09:23; Admin Dose 100 MG; Start 11/13/16 at 09:00 Ferrous Sulfate (Ferrous Sulfate (Ec)) 325 mg DAILY@11 PO Last administered on 11/14/16 12:30; Admin Dose 325 MG; Start 11/13/16 at 11:00 DAHIANA CANTOR MD November 14, 2016 13:49
--- NOTE | 2016-11-14 18:26 | CONS ---
Date/Time of Note Date/Time of Note DATE: 11/14/16 TIME: 18:22 Assessment/Plan Assessment/Plan Additional Assessment/Plan 1) uti - kleb repeat u/a and urine cx, doubt this is an active problem 2) interstitial lung disease hard to say if there is an acute process on top of this chronic process on zosyn will add doxycycline for atypical coverage and MRSA coverage zosyn has good coverage for aspiration pneumonia too with bronchiectasis more resistant organisms are often found so if wbc is not improving would change zosyn to merrem check procalcitonin 3) distended GB with gallstones and thickened GB wall doubt acute infection with GB but a more chronic process is very possible doubt she is a surgical candidate so I don't see the advantage of getting a HIDA scan to confirm this antibiotics such as zosyn can be helpful for a short course (7-10 days) and would continue with this 4) dementia 5) g-tube 6) malnutrition low albumin pt on tube feeds now at 40/h 7) 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 The WBC which had been trending up since 11/12 is now improved with improvement in the neutrophilia as well. Exam/Review of Systems Vital Signs Vitals Vital Signs Date Time Temp Pulse Resp B/P Pulse Ox O2 Delivery O2 Flow Rate FiO2 11/14/16 07:56 98.9 85 20 109/63 93 11/13/16 01:10 Room Air 11/10/16 13:30 2.0 Intake and Output 11/13/16 11/13/16 11/14/16 15:00 23:00 07:00 Intake Total 790 ml 650 ml 1140 ml Output Total 800 ml Balance 790 ml 650 ml 340 ml Exam pts eyes are open and she tracks but does not verbalize when asked questions or follow commands Constitutional: alert Head: normocephalic Eyes: nl sclera ENMT: mucosa pink and moist Respiratory: other (bilateral crackles) Cardiovascular: regular rate and rhythm Gastrointestinal: other (pt has binder on but nurse reports g-tube site was good, no pain on exam) Extremities: other (no edeman and pt is somewhat rolled up in a ball) Results Result Diagram: 11/14/16 0425 11/14/16 0425 Results 24 hrs Laboratory Tests Test 11/14/16 04:25 White Blood Count 12.2 H Red Blood Count 3.28 L Hemoglobin 9.1 L Hematocrit 27.3 L Mean Corpuscular Volume 83.2 Mean Corpuscular Hemoglobin 27.7 L Mean Corpuscular Hemoglobin Concent 33.3 Red Cell Distribution Width 15.4 H Platelet Count 432 H Mean Platelet Volume 9.7 Neutrophils % 79.6 H Lymphocytes % 10.6 L Monocytes % 6.4 Eosinophils % 2.5 Basophils % 0.2 Nucleated Red Blood Cells % 0.0 Neutrophils # 9.7 H Lymphocytes # 1.3 Monocytes # 0.8 Eosinophils # 0.3 Basophils # 0.0 Nucleated Red Blood Cells # 0.0 Sodium Level 124 L Potassium Level 3.9 Chloride Level 90 L Carbon Dioxide Level 26 Anion Gap 12 Blood Urea Nitrogen 19 Creatinine 0.66 Glucose Level 140 # Calcium Level 8.4 Magnesium Level 1.7 Total Bilirubin 0.1 L Direct Bilirubin 0.00 Indirect Bilirubin 0.1 Aspartate Amino Transf (AST/SGOT) 26 Alanine Aminotransferase (ALT/SGPT) 31 Alkaline Phosphatase 107 Total Protein 6.1 Albumin 2.4 L Globulin 3.70 H Albumin/Globulin Ratio 0.64 Medications Medications Current Medications Ascorbic Acid (Vitamin C) 500 mg DAILY PO Last administered on 11/14/16 09:21 ; Admin Dose 500 MG; Start 11/05/16 at 09:00 Phenol (Cepastat Lozenge) 1 lozenge Q6 PRN MM SORE THROAT; Start 11/04/16 at 16: 30 Folic Acid (Folic Acid) 1 mg DAILY PO Last administered on 11/14/16 09:22; Admin Dose 1 MG; Start 11/05/16 at 09:00 Multivitamins Therapeutic (Theragran) 1 tab DAILY PO Last administered on 09:22; Admin Dose 1 TAB; Start 11/05/16 at 09:00 Eye Lubricant (Artificial Tears Oph) 2 drop Q6H PRN BOTH EYES DRY EYES; Start 11/04/16 at 16:30 Amlodipine Besylate (Norvasc) 5 mg DAILY PO Last administered on 11/14/16 09: 22; Admin Dose 5 MG; Start 11/05/16 at 09:00 Trazodone HCl (Desyrel) 50 mg Q4H PRN PO ANXIETY; Start 11/04/16 at 16:30 Morphine Sulfate (morphine) 4 mg Q4H PRN IV PAIN LEVEL 7-10 Last administered on 11/14/16 12:33; Admin Dose 4 MG; Start 11/05/16 at 00:00 Escitalopram Oxalate (Lexapro) 10 mg DAILY PO Last administered on 11/14/16 09 :21; Admin Dose 10 MG; Start 11/06/16 at 13:30 Enoxaparin Sodium (Lovenox) 30 mg DAILY SC Last administered on 11/09/16 08:47 ; Admin Dose 30 MG; Start 11/07/16 at 09:00; Status Future Hold Hydralazine HCl (Apresoline) 10 mg Q4H PRN IV SBP >160 Last administered on 11/09 20:03; Admin Dose 10 MG; Start 11/06/16 at 16:00 Lorazepam 0.5 mg 0.5 mg Q6H PRN IV ANXIETY Last administered on 11/08/16 15:18 ; Admin Dose 0.5 MG; Start 11/06/16 at 18:30 Piperacillin Sod/ Tazobactam Sod (Zosyn 2.25gm/ 50ml (Pmx)) 50 ml @ 100 mls/hr Q8 IVPB Last administered on 11/14/16 15:03; Admin Dose 100 MLS/HR; Start 11/10 at 22:00 Acetaminophen (Tylenol Liquid) 650 mg Q4H PRN GTB PAIN AND OR ELEVATED TEMP; Start 11/11/16 at 11:00 Docusate Sodium (Colace Liquid Cup) 100 mg BID GTB Last administered on 09:21; Admin Dose 100 MG; Start 11/11/16 at 21:00 Doxycycline Hyclate (Vibramycin) 100 mg BID GTB Last administered on 11/14/16 09:23; Admin Dose 100 MG; Start 11/13/16 at 09:00 Ferrous Sulfate (Ferrous Sulfate (Ec)) 325 mg DAILY@11 PO Last administered on 11/14/16 12:30; Admin Dose 325 MG; Start 11/13/16 at 11:00 KAREEM MEDINA November 14, 2016 18:26
[2016-11-14 19:20] VITALS: BP 123/68; RESP 20
--- NOTE | 2016-11-14 20:36 | PN ---
DATE: 11/14/2016 OBJECTIVE: GENERAL: The patient appears to be comfortable with no complaints of any pain. VITAL SIGNS: Afebrile, blood pressure 109/63, O2 sats 93% on room air. CHEST: Few crackles heard at the bases. HEART: S1, S2 heard with no definite gallops. ABDOMEN: Soft. No definite tenderness. EXTREMITIES: No edema. LABORATORY DATA: WBC count 12.2, hematocrit 27.3. Repeat sodium 124, potassium 3.9, BUN 19, creati nine 0.66, magnesium 1.7. Serum osmolality 263. Urine osmolality 398. Sodium 140. IMPRESSION: 1. 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 2. Status post urinary tract infection. 3. Severe malnutrition, status post percutaneous endoscopic G-tube placement. 4. Severe anemia. 5. Nephrolithiasis. PLAN: Will restrict fluid intake and recheck the serum sodium in the morning. CT of the chest reve aled no significant improvement. Dictated By: KASSI RICARDO MD, SR/SHANTEL Conf#: [id number] DID#: [id number]
[2016-11-15 05:10] LABS: ADD SCAN DIFF NO
[2016-11-15 05:13] LABS: BASOPHILS % 0.3 % (0.0-2.0); EOSINOPHILS # 0.2 10^3/ul (0.0-0.5); EOSINOPHILS % 1.8 % (0.0-7.0); HEMATOCRIT 30.2 % (37.0-47.0); HEMOGLOBIN 10.1 g/dl (12.0-16.0); LYMPHOCYTES # 1.1 10^3/ul (0.8-2.9); LYMPHOCYTES % 9.6 % (15.0-51.0); MEAN CORPUSCULAR HEMOGLOBIN 27.7 pg (29.0-33.0); MEAN CORPUSCULAR HGB CONC 33.4 g/dl (32.0-37.0); MEAN CORPUSCULAR VOLUME 82.7 fl (82.0-101.0); MEAN PLATELET VOLUME 9.6 fl (7.4-10.4); MONOCYTE # 0.7 10^3/ul (0.3-0.9); MONOCYTES % 6.7 % (0.0-11.0); NEUTROPHIL # 8.9 10^3/ul (1.6-7.5); NEUTROPHILS % 80.5 % (39.0-77.0); PLATELET COUNT 503 10^3/UL (140-415); RED BLOOD COUNT 3.65 10^6/ul (4.20-5.40); RED CELL DISTRIBUTION WIDTH 15.1 % (11.5-14.5); WHITE BLOOD COUNT 11.1 10^3/ul (4.8-10.8)
[2016-11-15] MEDS: PIPER-TAZO 2.25 GM (PMX) 50 ML IVPB SCH ×3 (05:38→22:35)
[2016-11-15 06:48] LABS: CREATININE 0.67 mg/dl (0.44-1.00)
[2016-11-15 06:49] LABS: CALCIUM 8.7 mg/dl (8.4-10.2); MAGNESIUM 1.7 mg/dl (1.7-2.5)
[2016-11-15 08:12] VITALS: BP 100/63; RESP 19
[2016-11-15] MEDS: DOXYCYCLINE 100 MG TAB GTB SCH ×2 (09:11→21:29)
[2016-11-15] MEDS: DOCUSATE SODIUM 10 MG/ML (10ML CUP) GTB SCH ×2 (09:11→21:30)
[2016-11-15] MEDS: MULTIVITAMINS THERAPEUTIC TAB PO SCH (09:12)
[2016-11-15] MEDS: FOLIC ACID 1 MG TAB PO SCH (09:12)
[2016-11-15] MEDS: ASCORBIC ACID 500 MG TAB PO SCH (09:12)
[2016-11-15] MEDS: AMLODIPINE 5 MG TAB PO SCH (09:12)
[2016-11-15] MEDS: ESCITALOPRAM 10 MG TAB PO SCH (09:12)
[2016-11-15] MEDS: FERROUS SULFATE (EC) 325 MG TAB PO SCH (09:13)
--- NOTE | 2016-11-15 14:31 | CONS ---
Date/Time of Note Date/Time of Note DATE: 11/15/16 TIME: 14:30 Assessment/Plan Assessment/Plan Additional Assessment/Plan IMPRESSION: 1. Cachexia. 2. Malnutrition. 3. Dysphagia. 4. Gallstones with dilated biliary system, mild elevation of alkaline phosphatase. Biliary pathology cannot be absolutely ruled out. MRCP is negative for bile duct stone. Patient has no abdominal pain or tenderness. 5. Pneumonia. Also interstitial lung disease 6. Hypertension. 7. Dementia. 8. Anemia. 9. Status post PEG patient is tolerating feeding 10. Leukocytosis, patient is on Zosyn now 11. Hyponatremia Plan Continue present care Slowly increase feeding Continue antibiotic Monitor WBC count Patient clinically looks better and more awake and alert. Patient is now oriented. Correction of hyponatremia Consultation Date/Type/Reason Admit Date/Time November 04, 2016 at 14:31 Type of Consultation: ID 24 HR Interval Summary Constitutional: improved, no complaints Exam/Review of Systems Vital Signs Vitals Vital Signs Date Time Temp Pulse Resp B/P Pulse Ox O2 Delivery O2 Flow Rate FiO2 11/15/16 08:12 98.6 85 19 100/63 96 11/13/16 01:10 Room Air Intake and Output 11/14/16 11/14/16 11/15/16 15:00 23:00 07:00 Intake Total 970 ml 630 ml Output Total 700 ml Balance 970 ml -70 ml Exam Constitutional: alert, oriented, well developed Psych: nl mood/affect, no complaints Head: atraumatic, normocephalic Eyes: EOMI, PERRL, nl conjunctiva, nl lids, nl sclera ENMT: nl external ears & nose, nl lips & teeth, nl nasal mucosa & septum Neck: non-tender, supple Respiratory: clear to auscultation, normal air movement Cardiovascular: nl pulses, regular rate and rhythm Gastrointestinal: nl liver, spleen, non-tender, soft Musculoskeletal: nl extremities to inspection, nl gait and stance Extremities: normal pulses Neurological: PROCESS ENGINEERING INTERN II-XII intact, nl mental status, nl speech, nl strength Skin: nl turgor, No rash or lesions Lymph: nl lymph nodes Results Result Diagram: 11/15/16 0418 11/15/16 0418 Results 24 hrs Laboratory Tests Test 11/15/16 04:18 White Blood Count 11.1 H Red Blood Count 3.65 L Hemoglobin 10.1 L Hematocrit 30.2 L Mean Corpuscular Volume 82.7 Mean Corpuscular Hemoglobin 27.7 L Mean Corpuscular Hemoglobin Concent 33.4 Red Cell Distribution Width 15.1 H Platelet Count 503 H Mean Platelet Volume 9.6 Neutrophils % 80.5 H Lymphocytes % 9.6 L Monocytes % 6.7 Eosinophils % 1.8 Basophils % 0.3 Nucleated Red Blood Cells % 0.0 Neutrophils # 8.9 H Lymphocytes # 1.1 Monocytes # 0.7 Eosinophils # 0.2 Basophils # 0.0 Nucleated Red Blood Cells # 0.0 Sodium Level 123 L Potassium Level 4.0 Chloride Level 88 L Carbon Dioxide Level 26 Anion Gap 13 Blood Urea Nitrogen 19 Creatinine 0.67 Glucose Level 149 Calcium Level 8.7 Magnesium Level 1.7 Medications Medications Current Medications Ascorbic Acid (Vitamin C) 500 mg DAILY PO Last administered on 11/15/16 09:12 ; Admin Dose 500 MG; Start 11/05/16 at 09:00 Phenol (Cepastat Lozenge) 1 lozenge Q6 PRN MM SORE THROAT; Start 11/04/16 at 16: 30 Folic Acid (Folic Acid) 1 mg DAILY PO Last administered on 11/15/16 09:12; Admin Dose 1 MG; Start 11/05/16 at 09:00 Multivitamins Therapeutic (Theragran) 1 tab DAILY PO Last administered on 09:12; Admin Dose 1 TAB; Start 11/05/16 at 09:00 Eye Lubricant (Artificial Tears Oph) 2 drop Q6H PRN BOTH EYES DRY EYES; Start 11/04/16 at 16:30 Amlodipine Besylate (Norvasc) 5 mg DAILY PO Last administered on 11/15/16 09: 12; Admin Dose 5 MG; Start 11/05/16 at 09:00 Trazodone HCl (Desyrel) 50 mg Q4H PRN PO ANXIETY; Start 11/04/16 at 16:30 Morphine Sulfate (morphine) 4 mg Q4H PRN IV PAIN LEVEL 7-10 Last administered on 11/14/16 12:33; Admin Dose 4 MG; Start 11/05/16 at 00:00 Escitalopram Oxalate (Lexapro) 10 mg DAILY PO Last administered on 11/15/16 09 :12; Admin Dose 10 MG; Start 11/06/16 at 13:30 Enoxaparin Sodium (Lovenox) 30 mg DAILY SC Last administered on 11/09/16 08:47 ; Admin Dose 30 MG; Start 11/07/16 at 09:00; Status Future Hold Hydralazine HCl (Apresoline) 10 mg Q4H PRN IV SBP >160 Last administered on 11/09 20:03; Admin Dose 10 MG; Start 11/06/16 at 16:00 Lorazepam 0.5 mg 0.5 mg Q6H PRN IV ANXIETY Last administered on 11/08/16 15:18 ; Admin Dose 0.5 MG; Start 11/06/16 at 18:30 Piperacillin Sod/ Tazobactam Sod (Zosyn 2.25gm/ 50ml (Pmx)) 50 ml @ 100 mls/hr Q8 IVPB Last administered on 11/15/16 14:23; Admin Dose 100 MLS/HR; Start 11/10 at 22:00 Acetaminophen (Tylenol Liquid) 650 mg Q4H PRN GTB PAIN AND OR ELEVATED TEMP; Start 11/11/16 at 11:00 Docusate Sodium (Colace Liquid Cup) 100 mg BID GTB Last administered on 09:11; Admin Dose 100 MG; Start 11/11/16 at 21:00 Doxycycline Hyclate (Vibramycin) 100 mg BID GTB Last administered on 11/15/16 09:11; Admin Dose 100 MG; Start 11/13/16 at 09:00 Ferrous Sulfate (Ferrous Sulfate (Ec)) 325 mg DAILY@11 PO Last administered on 11/15/16 09:13; Admin Dose 325 MG; Start 11/13/16 at 11:00 DAHIANA CANTOR MD November 15, 2016 14:31
--- NOTE | 2016-11-15 16:57 | CONS ---
Date/Time of Note Date/Time of Note DATE: 11/15/16 TIME: 16:54 Assessment/Plan Assessment/Plan Additional Assessment/Plan 1) uti - kleb repeat u/a and urine cx, doubt this is an active problem, in fact the repeat culture is negative. 2) interstitial lung disease hard to say if there is an acute process on top of this chronic process on zosyn will add doxycycline for atypical coverage and MRSA coverage zosyn has good coverage for aspiration pneumonia too with bronchiectasis more resistant organisms are often found so if wbc is not improving would change zosyn to merrem Follow-up procalcitonin 3) distended GB with gallstones and thickened GB wall doubt acute infection with GB but a more chronic process is very possible doubt she is a surgical candidate so I don't see the advantage of getting a HIDA scan to confirm this antibiotics such as zosyn can be helpful for a short course (7-10 days) and would continue with this 4) dementia 5) g-tube 6) malnutrition low albumin pt on tube feeds now at 40/h 7) hyponatremia 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 No new positive cultures or imaging. She states that she has no pain. Remains on doxycycline and Zosyn. WBC is stable today with stable neutrophilia. Exam/Review of Systems Vital Signs Vitals Vital Signs Date Time Temp Pulse Resp B/P Pulse Ox O2 Delivery O2 Flow Rate FiO2 11/15/16 08:12 98.6 85 19 100/63 96 11/13/16 01:10 Room Air Intake and Output 11/14/16 11/14/16 11/15/16 15:00 23:00 07:00 Intake Total 970 ml 630 ml Output Total 700 ml Balance 970 ml -70 ml Exam Today she interacted with me and responded to all but one of my questions with the answer as no. She refused letting me examine her today. Constitutional: alert Head: normocephalic Eyes: nl sclera ENMT: mucosa pink and moist Limited abdominal exam, but no apparent tenderness was found and it is soft Results Result Diagram: 11/15/16 0418 11/15/16 0418 Results 24 hrs Laboratory Tests Test 11/15/16 04:18 White Blood Count 11.1 H Red Blood Count 3.65 L Hemoglobin 10.1 L Hematocrit 30.2 L Mean Corpuscular Volume 82.7 Mean Corpuscular Hemoglobin 27.7 L Mean Corpuscular Hemoglobin Concent 33.4 Red Cell Distribution Width 15.1 H Platelet Count 503 H Mean Platelet Volume 9.6 Neutrophils % 80.5 H Lymphocytes % 9.6 L Monocytes % 6.7 Eosinophils % 1.8 Basophils % 0.3 Nucleated Red Blood Cells % 0.0 Neutrophils # 8.9 H Lymphocytes # 1.1 Monocytes # 0.7 Eosinophils # 0.2 Basophils # 0.0 Nucleated Red Blood Cells # 0.0 Sodium Level 123 L Potassium Level 4.0 Chloride Level 88 L Carbon Dioxide Level 26 Anion Gap 13 Blood Urea Nitrogen 19 Creatinine 0.67 Glucose Level 149 Calcium Level 8.7 Magnesium Level 1.7 Medications Medications Current Medications Ascorbic Acid (Vitamin C) 500 mg DAILY PO Last administered on 11/15/16 09:12 ; Admin Dose 500 MG; Start 11/05/16 at 09:00 Phenol (Cepastat Lozenge) 1 lozenge Q6 PRN MM SORE THROAT; Start 11/04/16 at 16: 30 Folic Acid (Folic Acid) 1 mg DAILY PO Last administered on 11/15/16 09:12; Admin Dose 1 MG; Start 11/05/16 at 09:00 Multivitamins Therapeutic (Theragran) 1 tab DAILY PO Last administered on 09:12; Admin Dose 1 TAB; Start 11/05/16 at 09:00 Eye Lubricant (Artificial Tears Oph) 2 drop Q6H PRN BOTH EYES DRY EYES; Start 11/04/16 at 16:30 Amlodipine Besylate (Norvasc) 5 mg DAILY PO Last administered on 11/15/16 09: 12; Admin Dose 5 MG; Start 11/05/16 at 09:00 Trazodone HCl (Desyrel) 50 mg Q4H PRN PO ANXIETY; Start 11/04/16 at 16:30 Morphine Sulfate (morphine) 4 mg Q4H PRN IV PAIN LEVEL 7-10 Last administered on 11/14/16 12:33; Admin Dose 4 MG; Start 11/05/16 at 00:00 Escitalopram Oxalate (Lexapro) 10 mg DAILY PO Last administered on 11/15/16 09 :12; Admin Dose 10 MG; Start 11/06/16 at 13:30 Enoxaparin Sodium (Lovenox) 30 mg DAILY SC Last administered on 11/09/16 08:47 ; Admin Dose 30 MG; Start 11/07/16 at 09:00; Status Future Hold Hydralazine HCl (Apresoline) 10 mg Q4H PRN IV SBP >160 Last administered on 11/09 20:03; Admin Dose 10 MG; Start 11/06/16 at 16:00 Lorazepam 0.5 mg 0.5 mg Q6H PRN IV ANXIETY Last administered on 11/08/16 15:18 ; Admin Dose 0.5 MG; Start 11/06/16 at 18:30 Piperacillin Sod/ Tazobactam Sod (Zosyn 2.25gm/ 50ml (Pmx)) 50 ml @ 100 mls/hr Q8 IVPB Last administered on 11/15/16 14:23; Admin Dose 100 MLS/HR; Start 11/10 at 22:00 Acetaminophen (Tylenol Liquid) 650 mg Q4H PRN GTB PAIN AND OR ELEVATED TEMP; Start 11/11/16 at 11:00 Docusate Sodium (Colace Liquid Cup) 100 mg BID GTB Last administered on 09:11; Admin Dose 100 MG; Start 11/11/16 at 21:00 Doxycycline Hyclate (Vibramycin) 100 mg BID GTB Last administered on 11/15/16 09:11; Admin Dose 100 MG; Start 11/13/16 at 09:00 Ferrous Sulfate (Ferrous Sulfate (Ec)) 325 mg DAILY@11 PO Last administered on 11/15/16 09:13; Admin Dose 325 MG; Start 11/13/16 at 11:00 KAREEM MEDINA November 15, 2016 16:57
[2016-11-15] MEDS ORDERED: MAGNESIUM SULFATE 2 GM/50 ML 50 ML IVPB ONE (18:15)
--- NOTE | 2016-11-15 18:44 | PN ---
DATE: SUBJECTIVE: The patient overall appears comfortable. Denies any chest pain. Mild cough, nonproduc tive. PHYSICAL EXAMINATION: VITAL SIGNS: The patient is afebrile. Blood pressure 100/63, O2 sats 96% on room air. CHEST: Few crackles heard at the bases. HEART: S1, S2 heard with no definite gallops. ABDOMEN: Soft. No definite tenderness. EXTREMITIES: No edema. LABORATORY DATA: WBC count 11.1, hematocrit 30.2. Sodium 123, creatinine 0.67, BUN 19. Magnesium 1.7. Urine sodium was 140. Urine osmolality is 398. Serum osmolality is 263. IMPRESSION: 1. 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 Fluids being res tricted. 2. Hypomagnesemia. 3. Malnutrition, status post G-tube placement. 4. Hypoalbuminemia. 5. Interstitial lung disease. On Zosyn and doxycycline for atypical coverage and methicillin resis tant Staphylococcus aureus coverage. We will continue present management. Recheck levels in a.m. Will check thyroid function studies an d also serum cortisol levels. Dictated By: KASSI RICARDO MD, SR/SHANTEL Conf#: [id number] DID#: [id number]
[2016-11-16 05:09] LABS: ADD SCAN DIFF NO
[2016-11-16 05:16] LABS: BASOPHILS % 0.3 % (0.0-2.0); EOSINOPHILS # 0.2 10^3/ul (0.0-0.5); EOSINOPHILS % 2.2 % (0.0-7.0); HEMATOCRIT 28.4 % (37.0-47.0); HEMOGLOBIN 9.4 g/dl (12.0-16.0); LYMPHOCYTES # 1.4 10^3/ul (0.8-2.9); LYMPHOCYTES % 12.7 % (15.0-51.0); MEAN CORPUSCULAR HEMOGLOBIN 27.3 pg (29.0-33.0); MEAN CORPUSCULAR HGB CONC 33.1 g/dl (32.0-37.0); MEAN CORPUSCULAR VOLUME 82.6 fl (82.0-101.0); MEAN PLATELET VOLUME 9.3 fl (7.4-10.4); MONOCYTE # 0.8 10^3/ul (0.3-0.9); MONOCYTES % 7.7 % (0.0-11.0); NEUTROPHIL # 8.2 10^3/ul (1.6-7.5); NEUTROPHILS % 75.8 % (39.0-77.0); PLATELET COUNT 490 10^3/UL (140-415); RED BLOOD COUNT 3.44 10^6/ul (4.20-5.40); RED CELL DISTRIBUTION WIDTH 15.2 % (11.5-14.5); WHITE BLOOD COUNT 10.8 10^3/ul (4.8-10.8)
[2016-11-16 05:42] LABS: ALBUMIN 2.7 g/dl (3.3-4.9); ALBUMIN/GLOBULIN RATIO 0.69; CALCIUM 8.5 mg/dl (8.4-10.2); CREATININE 0.66 mg/dl (0.44-1.00); MAGNESIUM 2.6 mg/dl (1.7-2.5); TOTAL PROTEIN 6.6 g/dl (6.1-8.1)
[2016-11-16] MEDS: PIPER-TAZO 2.25 GM (PMX) 50 ML IVPB SCH ×3 (06:03→23:11)
[2016-11-16 06:08] LABS: THYROID STIMULATING HORMONE 1.73 MIU/L (0.465-4.680)
[2016-11-16 07:47] VITALS: BP 140/71; RESP 16
[2016-11-16] MEDS: DOCUSATE SODIUM 10 MG/ML (10ML CUP) GTB SCH ×2 (08:22→20:42)
[2016-11-16] MEDS: DOXYCYCLINE 100 MG TAB GTB SCH ×2 (08:22→20:42)
[2016-11-16] MEDS: morphine 4 MG/ML VIAL IV PRN ×2 (08:22→20:44)
[2016-11-16] MEDS: FOLIC ACID 1 MG TAB PO SCH (08:23)
[2016-11-16] MEDS: ESCITALOPRAM 10 MG TAB PO SCH (08:23)
[2016-11-16] MEDS: MULTIVITAMINS THERAPEUTIC TAB PO SCH (08:23)
[2016-11-16] MEDS: AMLODIPINE 5 MG TAB PO SCH (08:23)
[2016-11-16] MEDS: ASCORBIC ACID 500 MG TAB PO SCH (08:23)
[2016-11-16] MEDS ORDERED: NACL 3% 500 ML IV SCH (10:30)
[2016-11-16] MEDS ORDERED: FUROSEMIDE 20 MG INJ IV ONE (10:30)
[2016-11-16] MEDS ORDERED: SOD CHLORIDE 0.9% 100 ML ONE (10:35)
[2016-11-16] MEDS ORDERED: IODIXANOL LOCM 100 ML BTL ONE (10:35)
--- NOTE | 2016-11-16 11:06 | CONS ---
DATE OF ADMISSION: 11/04/2016 DATE OF CONSULTATION: 11/16/2016 Thank you, Dr. Angeles, for asking me to participate in medical management of this patient. REASON FOR CONSULTATION: Hyponatremia. HISTORY OF PRESENT ILLNESS: This 86-year-old female is being seen for hyponatremia. The patient is awake; however, the patient is demented and unable to give any history. The history was taken from a conversation with Dr. Angeles and from chart notes. The patient was admitted on 11/04/2016, because of some shortness of breath and burning on urination. The patient was found to have dehydration and a urinary tract infection. The patient has been on antibiotics. The patient on admission had serum sodium of 141 but over the last 12 days, her serum sodium has decreased. It seemed to start to decrease around 11/08/2016. At that time, she started a tube feeding after a PEG was placed on 11/09/2016 because of dysphagia. Since that time, the patient's serum sodium has gone from 133 down to 123 today. The patient was on tube feeding, which was discontinued. The patient was getting water flushes; however , that was discontinued because of the decreasing serum sodium. The patient had a urine sodium done which was 140. Her cortisol level was appropriate at 20.6. Her TSH level is normal. CURRENT MEDICATIONS: The patient is on the following medications at this time: 1. Ferrous sulfate. 2. Vibramycin 100 mg twice a day. 3. Docusate sodium 100 mg twice a day. 4. Tylenol p.r.n. pain. 5. Zosyn. 6. Ativan. 7. Hydralazine 10 mg IV every 4 hours p.r.n. systolic BP greater than 160. 8. Lexapro. 9. Ascorbic acid. 10. Folic acid. 11. Multivitamins. 12. Amlodipine. 13. Morphine sulfate. 14. Phenol. 15. Cepastat lozenges. 16. Eye lubricant 17. Trazodone 50 mg every 4 hours p.r.n. anxiety. PAST MEDICAL HISTORY: The patient's past medical history is remarkable for osteoporosis, cholelithiasis, fracture of the calcaneus of the left foot, chronic anemia, and dementia. ALLERGIES: SHE HAS NO KNOWN DRUG ALLERGIES. SOCIAL HISTORY: She does not drink alcohol. She does not smoke. PHYSICAL EXAMINATION: GENERAL: At this time reveals a thin ill-appearing female who is in no apparent distress. She is awake, but is not communicative. VITAL SIGNS: Temperature is 97.8, pulse of 80, respirations 16, blood pressure 140/71, O2 saturation 98% on room air. HEENT: Head normocephalic. Eyes: Seemed normal. NOSE AND MOUTH: Normal. NECK: Supple, no neck vein distention. LUNGS: There is a rare expiratory wheeze. HEART: Regular rhythm. No murmurs, gallops or rubs. ABDOMEN: Soft. There is a PEG gastric tube in place. EXTREMITIES: There is no edema but she does have some contractures of her lower extremities. LABORATORY TESTS: Done today sodium 123, potassium 4.0, chloride 90, CO2 29, BUN 19, creatinine 0.66, glucose 143, magnesium 2.6, albumin 2.7. Hemoglobin 9.4, hematocrit 28.4. Her urine sodium was repeated was 143. Urinalysis: Trace of protein. IMPRESSION: 1. Hyponatremia. This patient has had a decreasing serum sodium since 11/09/16. She was started on PEG tube feeding at about that time when her serum sodium started to decrease. There may be something related to the current tube feeding that could be contributing to her hyponatremia. She is not currently getting any water flushes which was appropriately discontinued. She has a high urine sodium and this with the hyponatremia is consistent with SiADH .She is on 2 medications which can cause hyponatremia , Lexapro and Trazodone . 2. Dementia. 3. Urinary tract infection 4. Hypertension. 5. Anemia PLAN: 1. Discontinue IV normal saline and switch to hypertonic saline. Discontinue Lexapro and Trazodone . 2. Give 1 dose of Lasix to prevent volume overload with the hypertonic saline. 3. Monitor serum sodium carefully. 4. I will follow the patient along with you. Dictated By: GUILLAUME DIAZ MD, ND/SHANTEL Conf#: [id number] DID#: [id number] MTDD
--- NOTE | 2016-11-16 12:47 | CONS ---
Date/Time of Note Date/Time of Note DATE: 11/16/16 TIME: 12:43 Assessment/Plan Assessment/Plan Chief Complaint/Hosp Course 1) uti - kleb repeat u/a and urine cx, doubt this is an active problem 2) interstitial lung disease hard to say if there is an acute process on top of this chronic process on zosyn will add doxycycline for atypical coverage and MRSA coverage zosyn has good coverage for aspiration pneumonia too with bronchiectasis more resistant organisms are often found so if wbc is not improving would change zosyn to merrem check procalcitonin 11/16 - improved over the weekend day 7 of zosyn and day 4 of doxy, continue both for 3 days more 3) distended GB with gallstones and thickened GB wall doubt acute infection with GB but a more chronic process is very possible doubt she is a surgical candidate so I don't see the advantage of getting a HIDA scan to confirm this antibiotics such as zosyn can be helpful for a short course (7-10 days) and would continue with this 11/16 - she denies abd pain continue zosyn for 3 more days 4) dementia 5) g-tube 6) malnutrition low albumin pt on tube feeds now 7) hyponatremia will check urine sodium, 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 Problems: Consultation Date/Type/Reason Admit Date/Time November 04, 2016 at 14:31 Initial Consult Date 11/13/16 Type of Consultation: ID 24 HR Interval Summary Free Text/Dictation pt responds in scottish she denies pain, N, V, D, cough she says yes to breathing is normal Exam/Review of Systems Vital Signs Vitals Vital Signs Date Time Temp Pulse Resp B/P Pulse Ox O2 Delivery O2 Flow Rate FiO2 11/16/16 07:47 97.8 80 16 140/71 98 11/13/16 01:10 Room Air Intake and Output 11/15/16 11/15/16 11/16/16 15:00 23:00 07:00 Intake Total 50 ml 440 ml 630 ml Output Total 700 ml 1000 ml Balance 50 ml -260 ml -370 ml Exam Constitutional: alert Head: normocephalic Eyes: nl sclera ENMT: other (pt did not open mouth upon request in scottish) Respiratory: clear to auscultation Cardiovascular: regular rate and rhythm Gastrointestinal: non-tender, soft Results Result Diagram: 11/16/16 0440 11/16/16 0440 Results 24 hrs Laboratory Tests Test 11/16/16 04:40 White Blood Count 10.8 Red Blood Count 3.44 L Hemoglobin 9.4 L Hematocrit 28.4 L Mean Corpuscular Volume 82.6 Mean Corpuscular Hemoglobin 27.3 L Mean Corpuscular Hemoglobin Concent 33.1 Red Cell Distribution Width 15.2 H Platelet Count 490 H Mean Platelet Volume 9.3 Neutrophils % 75.8 Lymphocytes % 12.7 L Monocytes % 7.7 Eosinophils % 2.2 Basophils % 0.3 Nucleated Red Blood Cells % 0.0 Neutrophils # 8.2 H Lymphocytes # 1.4 Monocytes # 0.8 Eosinophils # 0.2 Basophils # 0.0 Nucleated Red Blood Cells # 0.0 Sodium Level 123 L Potassium Level 4.0 Chloride Level 90 L Carbon Dioxide Level 29 Anion Gap 8 Blood Urea Nitrogen 19 Creatinine 0.66 Glucose Level 143 Calcium Level 8.5 Magnesium Level 2.6 H Total Bilirubin 0.0 L Direct Bilirubin 0.00 Indirect Bilirubin 0.0 Aspartate Amino Transf (AST/SGOT) 26 Alanine Aminotransferase (ALT/SGPT) 26 Alkaline Phosphatase 113 Total Protein 6.6 Albumin 2.7 L Globulin 3.90 H Albumin/Globulin Ratio 0.69 Thyroid Stimulating Hormone (TSH) 1.730 Thyroxine (T4) 8.5 Random Cortisol 20.6 Medications Medications Current Medications Ascorbic Acid (Vitamin C) 500 mg DAILY PO Last administered on 11/16/16 08:23 ; Admin Dose 500 MG; Start 11/05/16 at 09:00 Phenol (Cepastat Lozenge) 1 lozenge Q6 PRN MM SORE THROAT; Start 11/04/16 at 16: 30 Folic Acid (Folic Acid) 1 mg DAILY PO Last administered on 11/16/16 08:23; Admin Dose 1 MG; Start 11/05/16 at 09:00 Multivitamins Therapeutic (Theragran) 1 tab DAILY PO Last administered on 08:23; Admin Dose 1 TAB; Start 11/05/16 at 09:00 Eye Lubricant (Artificial Tears Oph) 2 drop Q6H PRN BOTH EYES DRY EYES; Start 11/04/16 at 16:30 Amlodipine Besylate (Norvasc) 5 mg DAILY PO Last administered on 11/16/16 08: 23; Admin Dose 5 MG; Start 11/05/16 at 09:00 Morphine Sulfate (morphine) 4 mg Q4H PRN IV PAIN LEVEL 7-10 Last administered on 11/16/16 08:22; Admin Dose 4 MG; Start 11/05/16 at 00:00 Enoxaparin Sodium (Lovenox) 30 mg DAILY SC Last administered on 11/09/16 08:47 ; Admin Dose 30 MG; Start 11/07/16 at 09:00; Status Future Hold Hydralazine HCl (Apresoline) 10 mg Q4H PRN IV SBP >160 Last administered on 11/09 20:03; Admin Dose 10 MG; Start 11/06/16 at 16:00 Lorazepam 0.5 mg 0.5 mg Q6H PRN IV ANXIETY Last administered on 11/08/16 15:18 ; Admin Dose 0.5 MG; Start 11/06/16 at 18:30 Piperacillin Sod/ Tazobactam Sod (Zosyn 2.25gm/ 50ml (Pmx)) 50 ml @ 100 mls/hr Q8 IVPB Last administered on 11/16/16 06:03; Admin Dose 100 MLS/HR; Start 11/10 at 22:00 Acetaminophen (Tylenol Liquid) 650 mg Q4H PRN GTB PAIN AND OR ELEVATED TEMP; Start 11/11/16 at 11:00 Docusate Sodium (Colace Liquid Cup) 100 mg BID GTB Last administered on 08:22; Admin Dose 100 MG; Start 11/11/16 at 21:00 Doxycycline Hyclate 100 mg 100 mg BID GTB Last administered on 11/16/16 08:22 ; Admin Dose 100 MG; Start 11/13/16 at 09:00 Sodium Chloride (Sodium Chloride Iv 3%) 500 ml @ 25 mls/hr Q20H IV Last administered on 11/16/16 11:40; Admin Dose 25 MLS/HR; Start 11/16/16 at 10:30; Stop 11/17/16 at 06:29 FOUZIA HAWKINS MD November 16, 2016 12:47
[2016-11-16 13:35] LABS: PROTEIN/CREAT RATIO 2.36 RATIO
--- NOTE | 2016-11-16 14:12 | RADRPT ---
AMENDMENT: 11/16/2016 2:15:56 PM Jesus Angeles returned the page on 11/16/2016 at [address] results were discussed. PROCEDURE: CT Chest With Contrast CLINICAL INDICATION: Bronchiectasis, rule out tumor TECHNIQUE: Volumetric acquisition of the thorax was performed following the intravenous administra tion of contrast. One or more of the following dose reduction techniques were used: - Automated exposure control. - Adjustment of the mA and/or kV according to patient size. - Use of iterative reconstruction technique. Radiation Dose: CTDI = 4.52 mGy; DLP = 147.27 mGy-cm. COMPARISON: Previous chest radiograph done by 05/24/2017. The previous radiograph demonstrated coarsely increased interstitial markings throughout both lung f ields. Increased consolidation was seen in the medial right subapical region. FINDINGS: Lung hadley: Coarsely increased interstitial markings are seen throughout both lung hadley with area s of a honeycombing most extensive within the right lower lobe. Findings are most consistent with p ulmonary fibrosis. No discrete nodule, or alveolar infiltrate is evident. The segmental bronchi ar e proximally the same size as the adjacent pulmonary artery. At the posterior trachea at the level o f the inferior pole of the thyroid there is a 1.7 x 1.4 x 1.2 cm polypoid intrinsic filling defect. The pleural spaces: No effusion or pneumothorax is identified. Lymph nodes: There is a 1.3 cm in short diameter subcarinal node. No other adenopathy is evident. Cardiovascular structures: The heart is upper normal in size. There is calcification of the mitral a nnulus. Coronary artery disease is evident. The aorta appears atherosclerotic but is intact and no rmal in caliber and the brachial cephalic vessels are intact but tortuous. The increased density wi thin the medial right subapical region seen on the previous chest film appears to be a result of vas cular tortuosity. Thyroid: Unremarkable. Superior abdominal structures: There is suspicion of cholelithiasis which could be confirmed by mean s of sonography. Osseous structures: The osseous elements are rarefied and moderate diffuse degenerative spine change s are noted. IMPRESSION: 1. Diffuse bilateral coarsely increased interstitial markings with honeycombing most extensive with in the right lower lobe compatible with pulmonary fibrosis. Differential etiologies are alfred and ra nge from small pain, inhalational disease, drug related disease, previous radiation, infection, auto immune disease, vasculitis, sarcoidosis, histiocytosis and even neoplasm. 2. A sessile polyp like lesion is seen within the posterior trachea at the level of the inferior po le of the thyroid measuring 1.7 x 1.4 x 1.2 cm. No other mass is evident. 3. 1.3 cm in short diameter subcarinal node. No other adenopathy is evident. 4. The heart is upper normal in size and there is calcification of the mitral annulus with coronary artery disease along with atherosclerotic changes to the aorta. 5. Probable cholelithiasis. This could be confirmed by means of sonography if clinically indicated . 6. Moderate diffuse degenerative spine changes. Dr. Angeles was paged through his service on 11/16/2016 at 1350 hours in an attempt to convey cecil mahoney. Physician Ej Date Time Electronically viewed and signed by Physician Ej on 11/16/2016 14:18 /
--- NOTE | 2016-11-16 17:25 | PN ---
DATE: 11/16/2016 SUBJECTIVE: The patient overall feels comfortable, denies any pain. PHYSICAL EXAMINATION: VITAL SIGNS: Patient is afebrile. Blood pressure 140/71, O2 saturation 98% on room air. LUNGS: Clinically clear. ABDOMEN: Soft, nontender, no hepatosplenomegaly. EXTREMITIES: No edema. LABORATORY DATA: Sodium 123, potassium 4, BUN 19, creatinine 0.66. WBC count 10.8, hematocrit 28.4 . IMPRESSION: 1. Severe hyponatremia with SIADH , fluids have been decreased including the flushes of the G-tube. 2. Mild nutrition status post G-tube placement. 3. Hypoalbuminemia. 4. Interstitial lung disease. CAT scan was ordered of the chest to rule out underlying malignancy. We will obtain a nephrology consultation with Dr. Louie in view of the severe hyponatremia. Continue antibiotics per Dr. Bahena. Dictated By: KASSI RICARDO MD SR/NTS Conf#: [id number] DID#: [id number]
--- NOTE | 2016-11-16 19:25 | CONS ---
Date/Time of Note Date/Time of Note DATE: 11/16/16 TIME: 19:24 Assessment/Plan Assessment/Plan Additional Assessment/Plan IMPRESSION: 1. Cachexia. 2. Malnutrition. 3. Dysphagia. 4. Gallstones with dilated biliary system, mild elevation of alkaline phosphatase. Biliary pathology cannot be absolutely ruled out. MRCP is negative for bile duct stone. Patient has no abdominal pain or tenderness. 5. Pneumonia. Also interstitial lung disease 6. Hypertension. 7. Dementia. 8. Anemia. 9. Status post PEG patient is tolerating feeding 10. Leukocytosis, patient is on Zosyn now 11. Hyponatremia 12. Pulmonary fibrosis Plan Continue present care Slowly increase feeding Continue antibiotic Monitor WBC count Patient clinically looks better and more awake and alert. Patient is now oriented. 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 Consultation Date/Type/Reason Admit Date/Time November 04, 2016 at 14:31 Type of Consultation: ID [id number] HR Interval Summary Constitutional: improved, no complaints Exam/Review of Systems Vital Signs Vitals Vital Signs Date Time Temp Pulse Resp B/P Pulse Ox O2 Delivery O2 Flow Rate FiO2 11/16/16 07:47 97.8 80 16 140/71 98 11/13/16 01:10 Room Air Intake and Output 11/15/16 11/15/16 11/16/16 15:00 23:00 07:00 Intake Total 50 ml 440 ml 630 ml Output Total 700 ml 1000 ml Balance 50 ml -260 ml -370 ml Exam Constitutional: alert, oriented, well developed Psych: nl mood/affect, no complaints Head: atraumatic, normocephalic Eyes: EOMI, PERRL, nl conjunctiva, nl lids, nl sclera ENMT: nl external ears & nose, nl lips & teeth, nl nasal mucosa & septum Neck: non-tender, supple Respiratory: clear to auscultation, normal air movement Cardiovascular: nl pulses, regular rate and rhythm Gastrointestinal: nl liver, spleen, non-tender, soft Musculoskeletal: nl extremities to inspection, nl gait and stance Extremities: normal pulses 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, nl mental status, nl speech, nl strength Skin: nl turgor, No rash or lesions Lymph: nl lymph nodes Results Result Diagram: 11/16/16 0440 11/16/16 0440 Results 24 hrs Laboratory Tests Test 11/16/16 04:40 11/16/16 11:00 11/16/16 16:35 White Blood Count 10.8 Red Blood Count 3.44 L Hemoglobin 9.4 L Hematocrit 28.4 L Mean Corpuscular Volume 82.6 Mean Corpuscular Hemoglobin 27.3 L Mean Corpuscular Hemoglobin Concent 33.1 Red Cell Distribution Width 15.2 H Platelet Count 490 H Mean Platelet Volume 9.3 Neutrophils % 75.8 Lymphocytes % 12.7 L Monocytes % 7.7 Eosinophils % 2.2 Basophils % 0.3 Nucleated Red Blood Cells % 0.0 Neutrophils # 8.2 H Lymphocytes # 1.4 Monocytes # 0.8 Eosinophils # 0.2 Basophils # 0.0 Nucleated Red Blood Cells # 0.0 Sodium Level 123 L Potassium Level 4.0 Chloride Level 90 L Carbon Dioxide Level 29 Anion Gap 8 Blood Urea Nitrogen 19 Creatinine 0.66 Glucose Level 143 Calcium Level 8.5 Magnesium Level 2.6 H Total Bilirubin 0.0 L Direct Bilirubin 0.00 Indirect Bilirubin 0.0 Aspartate Amino Transf (AST/SGOT) 26 Alanine Aminotransferase (ALT/SGPT) 26 Alkaline Phosphatase 113 Total Protein 6.6 Albumin 2.7 L Globulin 3.90 H Albumin/Globulin Ratio 0.69 Thyroid Stimulating Hormone (TSH) 1.730 Thyroxine (T4) 8.5 Random Cortisol 20.6 Urine Random Creatinine 25.82 Urine Protein/Creatinine Ratio 2.36 Urine Total Protein 61.0 H Stool Occult Blood NEGATIVE Medications Medications Current Medications Ascorbic Acid (Vitamin C) 500 mg DAILY PO Last administered on 11/16/16 08:23 ; Admin Dose 500 MG; Start 11/05/16 at 09:00 Phenol (Cepastat Lozenge) 1 lozenge Q6 PRN MM SORE THROAT; Start 11/04/16 at 16: 30 Folic Acid (Folic Acid) 1 mg DAILY PO Last administered on 11/16/16 08:23; Admin Dose 1 MG; Start 11/05/16 at 09:00 Multivitamins Therapeutic (Theragran) 1 tab DAILY PO Last administered on 08:23; Admin Dose 1 TAB; Start 11/05/16 at 09:00 Eye Lubricant (Artificial Tears Oph) 2 drop Q6H PRN BOTH EYES DRY EYES; Start 11/04/16 at 16:30 Amlodipine Besylate (Norvasc) 5 mg DAILY PO Last administered on 11/16/16 08: 23; Admin Dose 5 MG; Start 11/05/16 at 09:00 Morphine Sulfate (morphine) 4 mg Q4H PRN IV PAIN LEVEL 7-10 Last administered on 11/16/16 08:22; Admin Dose 4 MG; Start 11/05/16 at 00:00 Enoxaparin Sodium (Lovenox) 30 mg DAILY SC Last administered on 11/09/16 08:47 ; Admin Dose 30 MG; Start 11/07/16 at 09:00; Status Future Hold Hydralazine HCl (Apresoline) 10 mg Q4H PRN IV SBP >160 Last administered on 11/09 20:03; Admin Dose 10 MG; Start 11/06/16 at 16:00 Lorazepam 0.5 mg 0.5 mg Q6H PRN IV ANXIETY Last administered on 11/08/16 15:18 ; Admin Dose 0.5 MG; Start 11/06/16 at 18:30 Piperacillin Sod/ Tazobactam Sod (Zosyn 2.25gm/ 50ml (Pmx)) 50 ml @ 100 mls/hr Q8 IVPB Last administered on 11/16/16 13:25; Admin Dose 100 MLS/HR; Start 11/10 at 22:00 Acetaminophen (Tylenol Liquid) 650 mg Q4H PRN GTB PAIN AND OR ELEVATED TEMP; Start 11/11/16 at 11:00 Docusate Sodium (Colace Liquid Cup) 100 mg BID GTB Last administered on 08:22; Admin Dose 100 MG; Start 11/11/16 at 21:00 Doxycycline Hyclate 100 mg 100 mg BID GTB Last administered on 11/16/16 08:22 ; Admin Dose 100 MG; Start 11/13/16 at 09:00 Sodium Chloride (Sodium Chloride Iv 3%) 500 ml @ 25 mls/hr Q20H IV Last administered on 11/16/16 11:40; Admin Dose 25 MLS/HR; Start 11/16/16 at 10:30; Stop 11/17/16 at 06:29 DAHIAAN CANTOR MD November 16, 2016 19:25
[2016-11-16 19:48] VITALS: BP 120/73; RESP 18
[2016-11-17] MEDS: PIPER-TAZO 2.25 GM (PMX) 50 ML IVPB SCH ×3 (05:42→22:01)
[2016-11-17 06:13] LABS: ADD SCAN DIFF NO
[2016-11-17 06:14] LABS: BASOPHILS % 0.4 % (0.0-2.0); EOSINOPHILS # 0.2 10^3/ul (0.0-0.5); EOSINOPHILS % 2.3 % (0.0-7.0); HEMATOCRIT 28.7 % (37.0-47.0); HEMOGLOBIN 9.2 g/dl (12.0-16.0); LYMPHOCYTES # 1.2 10^3/ul (0.8-2.9); LYMPHOCYTES % 12.3 % (15.0-51.0); MEAN CORPUSCULAR HEMOGLOBIN 27.2 pg (29.0-33.0); MEAN CORPUSCULAR HGB CONC 32.1 g/dl (32.0-37.0); MEAN CORPUSCULAR VOLUME 84.9 fl (82.0-101.0); MEAN PLATELET VOLUME 9.6 fl (7.4-10.4); MONOCYTE # 0.8 10^3/ul (0.3-0.9); MONOCYTES % 8.3 % (0.0-11.0); NEUTROPHIL # 7.6 10^3/ul (1.6-7.5); NEUTROPHILS % 75.6 % (39.0-77.0); PLATELET COUNT 502 10^3/UL (140-415); RED BLOOD COUNT 3.38 10^6/ul (4.20-5.40); RED CELL DISTRIBUTION WIDTH 15.9 % (11.5-14.5)
[2016-11-17 06:20] LABS: POTASSIUM 3.5 mmol/L (3.5-5.1)
[2016-11-17 06:22] LABS: CREATININE 0.68 mg/dl (0.44-1.00)
[2016-11-17 06:23] LABS: CALCIUM 8.6 mg/dl (8.4-10.2)
[2016-11-17] MEDS: morphine 4 MG/ML VIAL IV PRN ×2 (06:59→14:29)
[2016-11-17 07:58] VITALS: BP 157/84; RESP 20
--- NOTE | 2016-11-17 08:40 | CONS ---
Date/Time of Note Date/Time of Note DATE: 11/17/16 TIME: 08:34 Assessment/Plan Assessment/Plan Chief Complaint/Hosp Course 1. hyponatremia , corrected with furosemide and hypertonic saline . labs in am 2. Dementia / ALOC 3. dysphagia on gastric tube feeding . 4. osteoporosis 5. HTN 6. chronic anemia Problems: Consultation Date/Type/Reason Admit Date/Time November 04, 2016 at 14:31 Initial Consult Date 11/13/16 Type of Consultation: ID 24 HR Interval Summary Free Text/Dictation patient is sleeping and arouses easily to verbal stimuli . She is alert but not talking . Subjective hx not possible: pt non-verbal Exam/Review of Systems Vital Signs Vitals Vital Signs Date Time Temp Pulse Resp B/P Pulse Ox O2 Delivery O2 Flow Rate FiO2 11/17/16 07:58 97.9 84 20 157/84 95 Intake and Output 11/16/16 11/16/16 11/17/16 14:59 22:59 06:59 Intake Total 50 ml 525 ml 800 ml Output Total 1650 ml 550 ml Balance 50 ml -1125 ml 250 ml Exam legs are contracted Constitutional: alert, non-verbal Respiratory: clear to auscultation, diminished breath sounds Cardiovascular: regular rate and rhythm Gastrointestinal: soft Results Result Diagram: 11/17/16 0450 11/17/16 0450 Results 24 hrs Laboratory Tests Test 11/16/16 11:00 11/16/16 16:35 11/17/16 04:50 Urine Random Creatinine 25.82 Urine Protein/Creatinine Ratio 2.36 Urine Total Protein 61.0 H Stool Occult Blood NEGATIVE White Blood Count 10.0 Red Blood Count 3.38 L Hemoglobin 9.2 L Hematocrit 28.7 L Mean Corpuscular Volume 84.9 Mean Corpuscular Hemoglobin 27.2 L Mean Corpuscular Hemoglobin Concent 32.1 Red Cell Distribution Width 15.9 H Platelet Count 502 H Mean Platelet Volume 9.6 Neutrophils % 75.6 Lymphocytes % 12.3 L Monocytes % 8.3 Eosinophils % 2.3 Basophils % 0.4 Nucleated Red Blood Cells % 0.0 Neutrophils # 7.6 H Lymphocytes # 1.2 Monocytes # 0.8 Eosinophils # 0.2 Basophils # 0.0 Nucleated Red Blood Cells # 0.0 Sodium Level 135 Potassium Level 3.5 Chloride Level 95 L Carbon Dioxide Level 29 Anion Gap 15 # Blood Urea Nitrogen 25 H Creatinine 0.68 Glucose Level 129 Calcium Level 8.6 Medications Medications Current Medications Ascorbic Acid (Vitamin C) 500 mg DAILY PO Last administered on 11/16/16 08:23 ; Admin Dose 500 MG; Start 11/05/16 at 09:00 Phenol (Cepastat Lozenge) 1 lozenge Q6 PRN MM SORE THROAT; Start 11/04/16 at 16: 30 Folic Acid (Folic Acid) 1 mg DAILY PO Last administered on 11/16/16 08:23; Admin Dose 1 MG; Start 11/05/16 at 09:00 Multivitamins Therapeutic (Theragran) 1 tab DAILY PO Last administered on 08:23; Admin Dose 1 TAB; Start 11/05/16 at 09:00 Eye Lubricant (Artificial Tears Oph) 2 drop Q6H PRN BOTH EYES DRY EYES; Start 11/04/16 at 16:30 Amlodipine Besylate (Norvasc) 5 mg DAILY PO Last administered on 11/16/16 08: 23; Admin Dose 5 MG; Start 11/05/16 at 09:00 Morphine Sulfate (morphine) 4 mg Q4H PRN IV PAIN LEVEL 7-10 Last administered on 11/17/16 06:59; Admin Dose 4 MG; Start 11/05/16 at 00:00 Enoxaparin Sodium (Lovenox) 30 mg DAILY SC Last administered on 11/09/16 08:47 ; Admin Dose 30 MG; Start 11/07/16 at 09:00; Status Future Hold Hydralazine HCl (Apresoline) 10 mg Q4H PRN IV SBP >160 Last administered on 11/09 20:03; Admin Dose 10 MG; Start 11/06/16 at 16:00 Lorazepam 0.5 mg 0.5 mg Q6H PRN IV ANXIETY Last administered on 11/08/16 15:18 ; Admin Dose 0.5 MG; Start 11/06/16 at 18:30 Piperacillin Sod/ Tazobactam Sod (Zosyn 2.25gm/ 50ml (Pmx)) 50 ml @ 100 mls/hr Q8 IVPB Last administered on 11/17/16 05:42; Admin Dose 100 MLS/HR; Start 11/10 at 22:00 Acetaminophen (Tylenol Liquid) 650 mg Q4H PRN GTB PAIN AND OR ELEVATED TEMP; Start 11/11/16 at 11:00 Docusate Sodium (Colace Liquid Cup) 100 mg BID GTB Last administered on 20:42; Admin Dose 100 MG; Start 11/11/16 at 21:00 Doxycycline Hyclate (Vibramycin) 100 mg BID GTB Last administered on 11/16/16 20:42; Admin Dose 100 MG; Start 11/13/16 at 09:00 GUILLAUME DIAZ MD November 17, 2016 08:40
[2016-11-17] MEDS: DOCUSATE SODIUM 10 MG/ML (10ML CUP) GTB SCH ×2 (08:41→20:36)
[2016-11-17] MEDS: LORAZEPAM 2 MG INJ IV PRN ×2 (08:41→22:14)
[2016-11-17] MEDS: MULTIVITAMINS THERAPEUTIC TAB PO SCH (08:42)
[2016-11-17] MEDS: FOLIC ACID 1 MG TAB PO SCH (08:42)
[2016-11-17] MEDS: AMLODIPINE 5 MG TAB PO SCH (08:42)
[2016-11-17] MEDS: DOXYCYCLINE 100 MG TAB GTB SCH ×2 (08:42→20:36)
[2016-11-17] MEDS: ASCORBIC ACID 500 MG TAB PO SCH (08:42)
[2016-11-17 19:27] VITALS: BP 135/74; RESP 18
[2016-11-18 05:14] LABS: ADD SCAN DIFF NO
[2016-11-18 05:22] LABS: BASOPHILS % 0.4 % (0.0-2.0); EOSINOPHILS # 0.3 10^3/ul (0.0-0.5); EOSINOPHILS % 2.5 % (0.0-7.0); HEMATOCRIT 31.5 % (37.0-47.0); LYMPHOCYTES # 1.1 10^3/ul (0.8-2.9); LYMPHOCYTES % 10.5 % (15.0-51.0); MEAN CORPUSCULAR HEMOGLOBIN 27.1 pg (29.0-33.0); MEAN CORPUSCULAR HGB CONC 31.7 g/dl (32.0-37.0); MEAN CORPUSCULAR VOLUME 85.4 fl (82.0-101.0); MEAN PLATELET VOLUME 9.5 fl (7.4-10.4); MONOCYTE # 0.7 10^3/ul (0.3-0.9); MONOCYTES % 6.4 % (0.0-11.0); NEUTROPHIL # 8.4 10^3/ul (1.6-7.5); NEUTROPHILS % 79.4 % (39.0-77.0); PLATELET COUNT 548 10^3/UL (140-415); RED BLOOD COUNT 3.69 10^6/ul (4.20-5.40); RED CELL DISTRIBUTION WIDTH 15.7 % (11.5-14.5); WHITE BLOOD COUNT 10.5 10^3/ul (4.8-10.8)
[2016-11-18] MEDS: PIPER-TAZO 2.25 GM (PMX) 50 ML IVPB SCH ×3 (05:34→22:05)
[2016-11-18 05:50] LABS: ALBUMIN/GLOBULIN RATIO 0.73; CALCIUM 9.5 mg/dl (8.4-10.2); CREATININE 0.59 mg/dl (0.44-1.00); POTASSIUM 3.5 mmol/L (3.5-5.1); TOTAL PROTEIN 7.1 g/dl (6.1-8.1)
[2016-11-18] MEDS: morphine 4 MG/ML VIAL IV PRN ×3 (06:55→22:05)
--- NOTE | 2016-11-18 07:14 | CONS ---
Date/Time of Note Date/Time of Note DATE: 11/18/16 TIME: 06:59 Assessment/Plan Assessment/Plan Chief Complaint/Hosp Course 1) uti - kleb repeat u/a and urine cx, doubt this is an active problem 2) interstitial lung disease hard to say if there is an acute process on top of this chronic process on zosyn will add doxycycline for atypical coverage and MRSA coverage zosyn has good coverage for aspiration pneumonia too with bronchiectasis more resistant organisms are often found so if wbc is not improving would change zosyn to merrem check procalcitonin 11/16 - improved over the weekend day 7 of zosyn and day 4 of doxy, continue both for 3 days more 11/18 - CT chest shows pulmonary fibrosis with honeycombing and interstitial lung disease no alveolar infiltrates are seen d/c zosyn and doxy tomorrow doubt pulmonary fibrosis is due to active infection but if being aggressive she would need a bronch and/or VATS and have cultures for fungal and AFB I will sign off on case 3) distended GB with gallstones and thickened GB wall doubt acute infection with GB but a more chronic process is very possible doubt she is a surgical candidate so I don't see the advantage of getting a HIDA scan to confirm this antibiotics such as zosyn can be helpful for a short course (7-10 days) and would continue with this 11/16 - she denies abd pain continue zosyn for 3 more days 11/18 - will d/c zosyn tomorrow pt is tolerating TF 4) dementia 5) g-tube 6) malnutrition low albumin pt on tube feeds now 7) hyponatremia will check urine sodium, 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 11/18 - this has normalized with lasix and hypertonic saline Problems: Consultation Date/Type/Reason Admit Date/Time November 04, 2016 at 14:31 Initial Consult Date 11/13/16 Type of Consultation: ID 24 HR Interval Summary Free Text/Dictation spoke to nurse, pt has pain when being moved and has a stage 2 sacral decubitus pt is tolerating TF No V, D she is on room air Exam/Review of Systems Vital Signs Vitals Vital Signs Date Time Temp Pulse Resp B/P Pulse Ox O2 Delivery O2 Flow Rate FiO2 11/17/16 19:27 97.6 93 18 135/74 94 Intake and Output 11/17/16 11/17/16 11/18/16 15:00 23:00 07:00 Intake Total 125 ml 530 ml 530 ml Output Total 1100 ml 900 ml Balance 125 ml -570 ml -370 ml Exam Constitutional: alert Eyes: nl sclera Respiratory: clear to auscultation Cardiovascular: regular rate and rhythm Gastrointestinal: soft Results Result Diagram: 11/18/16 0445 11/18/16 0445 Results 24 hrs Laboratory Tests Test 11/18/16 04:45 White Blood Count 10.5 Red Blood Count 3.69 L Hemoglobin 10.0 L Hematocrit 31.5 L Mean Corpuscular Volume 85.4 Mean Corpuscular Hemoglobin 27.1 L Mean Corpuscular Hemoglobin Concent 31.7 L Red Cell Distribution Width 15.7 H Platelet Count 548 H Mean Platelet Volume 9.5 Neutrophils % 79.4 H Lymphocytes % 10.5 L Monocytes % 6.4 Eosinophils % 2.5 Basophils % 0.4 Nucleated Red Blood Cells % 0.0 Neutrophils # 8.4 H Lymphocytes # 1.1 Monocytes # 0.7 Eosinophils # 0.3 Basophils # 0.0 Nucleated Red Blood Cells # 0.0 Sodium Level 137 Potassium Level 3.5 Chloride Level 101 Carbon Dioxide Level 30 Anion Gap 10 # Blood Urea Nitrogen 26 H Creatinine 0.59 Glucose Level 154 Calcium Level 9.5 Total Bilirubin 0.0 L Direct Bilirubin 0.00 Indirect Bilirubin 0.0 Aspartate Amino Transf (AST/SGOT) 27 Alanine Aminotransferase (ALT/SGPT) 27 Alkaline Phosphatase 146 H Total Protein 7.1 Albumin 3.0 L Globulin 4.10 H Albumin/Globulin Ratio 0.73 Medications Medications Current Medications Ascorbic Acid (Vitamin C) 500 mg DAILY PO Last administered on 11/17/16 08:42 ; Admin Dose 500 MG; Start 11/05/16 at 09:00 Phenol (Cepastat Lozenge) 1 lozenge Q6 PRN MM SORE THROAT; Start 11/04/16 at 16: 30 Folic Acid (Folic Acid) 1 mg DAILY PO Last administered on 11/17/16 08:42; Admin Dose 1 MG; Start 11/05/16 at 09:00 Multivitamins Therapeutic (Theragran) 1 tab DAILY PO Last administered on 08:42; Admin Dose 1 TAB; Start 11/05/16 at 09:00 Eye Lubricant (Artificial Tears Oph) 2 drop Q6H PRN BOTH EYES DRY EYES; Start 11/04/16 at 16:30 Amlodipine Besylate (Norvasc) 5 mg DAILY PO Last administered on 11/17/16 08: 42; Admin Dose 5 MG; Start 11/05/16 at 09:00 Morphine Sulfate (morphine) 4 mg Q4H PRN IV PAIN LEVEL 7-10 Last administered on 11/18/16 06:55; Admin Dose 4 MG; Start 11/05/16 at 00:00 Enoxaparin Sodium (Lovenox) 30 mg DAILY SC Last administered on 11/09/16 08:47 ; Admin Dose 30 MG; Start 11/07/16 at 09:00; Status Future hold Hydralazine HCl (Apresoline) 10 mg Q4H PRN IV SBP >160 Last administered on 11/09 20:03; Admin Dose 10 MG; Start 11/06/16 at 16:00 Lorazepam 0.5 mg 0.5 mg Q6H PRN IV ANXIETY Last administered on 11/17/16 22:14 ; Admin Dose 0.5 MG; Start 11/06/16 at 18:30 Piperacillin Sod/ Tazobactam Sod (Zosyn 2.25gm/ 50ml (Pmx)) 50 ml @ 100 mls/hr Q8 IVPB Last administered on 11/18/16 05:34; Admin Dose 100 MLS/HR; Start 11/10 at 22:00 Acetaminophen (Tylenol Liquid) 650 mg Q4H PRN GTB PAIN AND OR ELEVATED TEMP; Start 11/11/16 at 11:00 Docusate Sodium (Colace Liquid Cup) 100 mg BID GTB Last administered on 20:36; Admin Dose 100 MG; Start 11/11/16 at 21:00 Doxycycline Hyclate (Vibramycin) 100 mg BID GTB Last administered on 11/17/16 20:36; Admin Dose 100 MG; Start 11/13/16 at 09:00 FOUZIA HAWKINS MD November 18, 2016 07:09
[2016-11-18 07:31] VITALS: BP 134/84; RESP 19
[2016-11-18] MEDS: DOXYCYCLINE 100 MG TAB GTB SCH ×2 (08:35→22:00)
[2016-11-18] MEDS: DOCUSATE SODIUM 10 MG/ML (10ML CUP) GTB SCH ×2 (08:35→22:00)
[2016-11-18] MEDS: MULTIVITAMINS THERAPEUTIC TAB PO SCH (08:35)
[2016-11-18] MEDS: AMLODIPINE 5 MG TAB PO SCH (08:36)
[2016-11-18] MEDS: FOLIC ACID 1 MG TAB PO SCH (08:36)
[2016-11-18] MEDS: ASCORBIC ACID 500 MG TAB PO SCH (08:36)
[2016-11-18] MEDS: ENOXAPARIN 30 MG/0.3 ML SYG SC SCH (08:37)
--- NOTE | 2016-11-18 08:51 | CONS ---
Date/Time of Note Date/Time of Note DATE: 11/18/16 TIME: 08:48 Assessment/Plan Assessment/Plan Chief Complaint/Hosp Course 1. hyponatremia , corrected , I will sign off at this point and see again on request . 2. Dementia / ALOC 3. dysphagia on gastric tube feeding . 4. osteoporosis 5. HTN 6. chronic anemia Problems: Consultation Date/Type/Reason Admit Date/Time November 04, 2016 at 14:31 Initial Consult Date 11/13/16 Type of Consultation: renal 24 HR Interval Summary Free Text/Dictation She is awake but not talking . Subjective hx not possible: pt non-verbal Exam/Review of Systems Vital Signs Vitals Vital Signs Date Time Temp Pulse Resp B/P Pulse Ox O2 Delivery O2 Flow Rate FiO2 11/18/16 07:31 98.2 94 19 134/84 96 Intake and Output 11/17/16 11/17/16 11/18/16 15:00 23:00 07:00 Intake Total 125 ml 530 ml 530 ml Output Total 1100 ml 900 ml Balance 125 ml -570 ml -370 ml Exam bilateral lower extremity contractures . Constitutional: alert, non-verbal Respiratory: clear to auscultation, diminished breath sounds Cardiovascular: regular rate and rhythm Gastrointestinal: soft Results Result Diagram: 11/18/16 0445 11/18/16 0445 Results 24 hrs Laboratory Tests Test 11/18/16 04:45 White Blood Count 10.5 Red Blood Count 3.69 L Hemoglobin 10.0 L Hematocrit 31.5 L Mean Corpuscular Volume 85.4 Mean Corpuscular Hemoglobin 27.1 L Mean Corpuscular Hemoglobin Concent 31.7 L Red Cell Distribution Width 15.7 H Platelet Count 548 H Mean Platelet Volume 9.5 Neutrophils % 79.4 H Lymphocytes % 10.5 L Monocytes % 6.4 Eosinophils % 2.5 Basophils % 0.4 Nucleated Red Blood Cells % 0.0 Neutrophils # 8.4 H Lymphocytes # 1.1 Monocytes # 0.7 Eosinophils # 0.3 Basophils # 0.0 Nucleated Red Blood Cells # 0.0 Sodium Level 137 Potassium Level 3.5 Chloride Level 101 Carbon Dioxide Level 30 Anion Gap 10 # Blood Urea Nitrogen 26 H Creatinine 0.59 Glucose Level 154 Calcium Level 9.5 Total Bilirubin 0.0 L Direct Bilirubin 0.00 Indirect Bilirubin 0.0 Aspartate Amino Transf (AST/SGOT) 27 Alanine Aminotransferase (ALT/SGPT) 27 Alkaline Phosphatase 146 H Total Protein 7.1 Albumin 3.0 L Globulin 4.10 H Albumin/Globulin Ratio 0.73 Medications Medications Current Medications Ascorbic Acid (Vitamin C) 500 mg DAILY PO Last administered on 11/18/16 08:36 ; Admin Dose 500 MG; Start 11/05/16 at 09:00 Phenol (Cepastat Lozenge) 1 lozenge Q6 PRN MM SORE THROAT; Start 11/04/16 at 16: 30 Folic Acid (Folic Acid) 1 mg DAILY PO Last administered on 11/18/16 08:36; Admin Dose 1 MG; Start 11/05/16 at 09:00 Multivitamins Therapeutic (Theragran) 1 tab DAILY PO Last administered on 08:35; Admin Dose 1 TAB; Start 11/05/16 at 09:00 Eye Lubricant (Artificial Tears Oph) 2 drop Q6H PRN BOTH EYES DRY EYES; Start 11/04/16 at 16:30 Amlodipine Besylate (Norvasc) 5 mg DAILY PO Last administered on 11/18/16 08: 36; Admin Dose 5 MG; Start 11/05/16 at 09:00 Morphine Sulfate (morphine) 4 mg Q4H PRN IV PAIN LEVEL 7-10 Last administered on 11/18/16 06:55; Admin Dose 4 MG; Start 11/05/16 at 00:00 Enoxaparin Sodium (Lovenox) 30 mg DAILY SC Last administered on 11/18/16 08:37 ; Admin Dose 30 MG; Start 11/07/16 at 09:00; Status Future hold Hydralazine HCl (Apresoline) 10 mg Q4H PRN IV SBP >160 Last administered on 11/09 20:03; Admin Dose 10 MG; Start 11/06/16 at 16:00 Lorazepam 0.5 mg 0.5 mg Q6H PRN IV ANXIETY Last administered on 11/17/16 22:14 ; Admin Dose 0.5 MG; Start 11/06/16 at 18:30 Piperacillin Sod/ Tazobactam Sod (Zosyn 2.25gm/ 50ml (Pmx)) 50 ml @ 100 mls/hr Q8 IVPB Last administered on 11/18/16 05:34; Admin Dose 100 MLS/HR; Start 11/10 at 22:00; Stop 11/19/16 at 23:00 Acetaminophen (Tylenol Liquid) 650 mg Q4H PRN GTB PAIN AND OR ELEVATED TEMP; Start 11/11/16 at 11:00 Docusate Sodium (Colace Liquid Cup) 100 mg BID GTB Last administered on 08:35; Admin Dose 100 MG; Start 11/11/16 at 21:00 Doxycycline Hyclate (Vibramycin) 100 mg BID GTB Last administered on 11/18/16 08:35; Admin Dose 100 MG; Start 11/13/16 at 09:00; Stop 11/19/16 at 23:00 GUILLAUME DIAZ MD November 18, 2016 08:51
--- NOTE | 2016-11-18 10:13 | PN ---
DATE: SUBJECTIVE: The patient this morning mildly tachypneic, respiratory rate 22 per minute. OBJECTIVE: VITAL SIGNS: Temperature 98.2, blood pressure 134/84, O2 sats 96%. CHEST: Revealed decreased breath sounds at the bases. HEART: S1, S2 heard with no definite gallops. EXTREMITIES: No edema. LABORATORY DATA: WBC count 10.5, hematocrit 31.5. Sodium 137, potassium 3.5, glucose 154. CAT sca n of the chest reviewed with the radiologist shows findings consistent with pulmonary fibrosis 1.3 c m of subcarinal node. Polyp-like lesion in the posterior trachea. IMPRESSION: 1. SIADH, improved. 2. Dysphagia, status post G-tube feedings. 3. Pulmonary fibrosis. 4. Subcarinal node with a polyp-like lesion in the trachea. 5. Mild dementia. PLAN: We will repeat a chest x-ray today and observe for 24 hours, if stable, discharge her in a.m. Repeat a CAT scan in 6 months and at that time consider pulmonary evaluation. Dictated By: KASSI RICARDO MD, SR/SHANTEL Conf#: [id number] DID#: [id number]
--- NOTE | 2016-11-18 11:01 | RADRPT ---
PROCEDURE: XR Chest 1 View. CLINICAL INDICATION: Shortness of breath. TECHNIQUE: AP view of the chest was obtained. COMPARISON: November 12, [address] November 16, 2016 FINDINGS: The heart size is within normal limits. Calcified atherosclerosis is noted in the aorta. Diffuse in terstitial prominence throughout both lungs is unchanged. Superimposed mild alveolar infiltrates th roughout both lungs continue be identified. Infiltrates have increased in the left lower lobe and a re stable throughout the remainder of the lungs. The osseous structures are osteopenic, but appear g rossly intact. Degenerative changes are seen in the shoulders. IMPRESSION: Calcified atherosclerosis in the aorta. Continued diffuse interstitial prominence in both lungs. Continued superimposed, patchy alveolar infiltrates throughout both lungs. Infiltrates in the left lower lobe appear to have mildly increased. RPTAT: AA .Jacques Calhoun MD, Date Time Electronically viewed and signed by .Jacques Calhoun MD, on 11/18/2016 11:00 .P/
--- NOTE | 2016-11-18 18:08 | CONS ---
Date/Time of Note Date/Time of Note DATE: 11/18/16 TIME: 18:07 Assessment/Plan Assessment/Plan Additional Assessment/Plan IMPRESSION: 1. Cachexia. 2. Malnutrition. 3. Dysphagia. 4. Gallstones with dilated biliary system, mild elevation of alkaline phosphatase. Biliary pathology cannot be absolutely ruled out. MRCP is negative for bile duct stone. Patient has no abdominal pain or tenderness. 5. Pneumonia. Also interstitial lung disease 6. Hypertension. 7. Dementia. 8. Anemia. 9. Status post PEG patient is tolerating feeding 10. Leukocytosis, patient is on Zosyn now 11. Hyponatremia, corrected sodium is greater than 135 12. Pulmonary fibrosis Plan Continue present care Slowly increase feeding Continue antibiotic Monitor WBC count Patient clinically looks better and more awake and alert. Patient is now oriented. Consultation Date/Type/Reason Admit Date/Time November 04, 2016 at 14:31 Type of Consultation: renal 24 HR Interval Summary Constitutional: improved, no complaints Exam/Review of Systems Vital Signs Vitals Vital Signs Date Time Temp Pulse Resp B/P Pulse Ox O2 Delivery O2 Flow Rate FiO2 11/18/16 07:31 98.2 94 19 134/84 96 Intake and Output 11/17/16 11/17/16 11/18/16 15:00 23:00 07:00 Intake Total 125 ml 530 ml 530 ml Output Total 1100 ml 900 ml Balance 125 ml -570 ml -370 ml Exam Constitutional: alert, oriented, well developed Psych: nl mood/affect, no complaints Head: atraumatic, normocephalic Eyes: EOMI, PERRL, nl conjunctiva, nl lids, nl sclera ENMT: nl external ears & nose, nl lips & teeth, nl nasal mucosa & septum Neck: non-tender, supple Respiratory: clear to auscultation, normal air movement Cardiovascular: nl pulses, regular rate and rhythm Gastrointestinal: nl liver, spleen, non-tender, soft Musculoskeletal: nl extremities to inspection, nl gait and stance Extremities: normal pulses Neurological: 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 intact, nl mental status, nl speech, nl strength Skin: nl turgor, No rash or lesions Lymph: nl lymph nodes Results Result Diagram: 11/18/16 0445 11/18/16 0445 Results 24 hrs Laboratory Tests Test 11/18/16 04:45 White Blood Count 10.5 Red Blood Count 3.69 L Hemoglobin 10.0 L Hematocrit 31.5 L Mean Corpuscular Volume 85.4 Mean Corpuscular Hemoglobin 27.1 L Mean Corpuscular Hemoglobin Concent 31.7 L Red Cell Distribution Width 15.7 H Platelet Count 548 H Mean Platelet Volume 9.5 Neutrophils % 79.4 H Lymphocytes % 10.5 L Monocytes % 6.4 Eosinophils % 2.5 Basophils % 0.4 Nucleated Red Blood Cells % 0.0 Neutrophils # 8.4 H Lymphocytes # 1.1 Monocytes # 0.7 Eosinophils # 0.3 Basophils # 0.0 Nucleated Red Blood Cells # 0.0 Sodium Level 137 Potassium Level 3.5 Chloride Level 101 Carbon Dioxide Level 30 Anion Gap 10 # Blood Urea Nitrogen 26 H Creatinine 0.59 Glucose Level 154 Calcium Level 9.5 Total Bilirubin 0.0 L Direct Bilirubin 0.00 Indirect Bilirubin 0.0 Aspartate Amino Transf (AST/SGOT) 27 Alanine Aminotransferase (ALT/SGPT) 27 Alkaline Phosphatase 146 H Total Protein 7.1 Albumin 3.0 L Globulin 4.10 H Albumin/Globulin Ratio 0.73 Medications Medications Current Medications Ascorbic Acid (Vitamin C) 500 mg DAILY PO Last administered on 11/18/16 08:36 ; Admin Dose 500 MG; Start 11/05/16 at 09:00 Phenol (Cepastat Lozenge) 1 lozenge Q6 PRN MM SORE THROAT; Start 11/04/16 at 16: 30 Folic Acid (Folic Acid) 1 mg DAILY PO Last administered on 11/18/16 08:36; Admin Dose 1 MG; Start 11/05/16 at 09:00 Multivitamins Therapeutic (Theragran) 1 tab DAILY PO Last administered on 08:35; Admin Dose 1 TAB; Start 11/05/16 at 09:00 Eye Lubricant (Artificial Tears Oph) 2 drop Q6H PRN BOTH EYES DRY EYES; Start 11/04/16 at 16:30 Amlodipine Besylate (Norvasc) 5 mg DAILY PO Last administered on 11/18/16 08: 36; Admin Dose 5 MG; Start 11/05/16 at 09:00 Morphine Sulfate (morphine) 4 mg Q4H PRN IV PAIN LEVEL 7-10 Last administered on 11/18/16 12:44; Admin Dose 4 MG; Start 11/05/16 at 00:00 Enoxaparin Sodium (Lovenox) 30 mg DAILY SC Last administered on 11/18/16 08:37 ; Admin Dose 30 MG; Start 11/07/16 at 09:00; Status Future hold Hydralazine HCl (Apresoline) 10 mg Q4H PRN IV SBP >160 Last administered on 11/09 20:03; Admin Dose 10 MG; Start 11/06/16 at 16:00 Lorazepam 0.5 mg 0.5 mg Q6H PRN IV ANXIETY Last administered on 11/17/16 22:14 ; Admin Dose 0.5 MG; Start 11/06/16 at 18:30 Piperacillin Sod/ Tazobactam Sod (Zosyn 2.25gm/ 50ml (Pmx)) 50 ml @ 100 mls/hr Q8 IVPB Last administered on 11/18/16 14:09; Admin Dose 100 MLS/HR; Start 11/10 at 22:00; Stop 11/19/16 at 23:00 Acetaminophen (Tylenol Liquid) 650 mg Q4H PRN GTB PAIN AND OR ELEVATED TEMP; Start 11/11/16 at 11:00 Docusate Sodium (Colace Liquid Cup) 100 mg BID GTB Last administered on 08:35; Admin Dose 100 MG; Start 11/11/16 at 21:00 Doxycycline Hyclate (Vibramycin) 100 mg BID GTB Last administered on 11/18/16 08:35; Admin Dose 100 MG; Start 11/13/16 at 09:00; Stop 11/19/16 at 23:00 DAHIANA CANTOR MD November 18, 2016 18:08
--- NOTE | 2016-11-18 18:09 | CONS ---
Date/Time of Note Date/Time of Note DATE: 11/18/16 TIME: 18:08 Assessment/Plan Assessment/Plan Additional Assessment/Plan IMPRESSION: 1. Cachexia. 2. Malnutrition. 3. Dysphagia. 4. Gallstones with dilated biliary system, mild elevation of alkaline phosphatase. Biliary pathology cannot be absolutely ruled out. MRCP is negative for bile duct stone. Patient has no abdominal pain or tenderness. 5. Pneumonia. Also interstitial lung disease 6. Hypertension. 7. Dementia. 8. Anemia. 9. Status post PEG patient is tolerating feeding 10. Leukocytosis, patient is on Zosyn now 11. Hyponatremia, corrected 12. Pulmonary fibrosis Plan Continue present care Slowly increase feeding Continue antibiotic Monitor WBC count Patient clinically looks better and more awake and alert. Patient is now oriented. Consultation Date/Type/Reason Admit Date/Time November 04, 2016 at 14:31 Type of Consultation: renal 24 HR Interval Summary Free Text/Dictation Patient was seen by me yesterday 11/17/2016 Does not communicate. As per the staff no complaints Exam/Review of Systems Vital Signs Vitals Vital Signs Date Time Temp Pulse Resp B/P Pulse Ox O2 Delivery O2 Flow Rate FiO2 11/18/16 07:31 98.2 94 19 134/84 96 Intake and Output 11/17/16 11/17/16 11/18/16 15:00 23:00 07:00 Intake Total 125 ml 530 ml 530 ml Output Total 1100 ml 900 ml Balance 125 ml -570 ml -370 ml Exam Constitutional: alert, oriented, well developed Psych: nl mood/affect, no complaints Head: atraumatic, normocephalic Eyes: EOMI, PERRL, nl conjunctiva, nl lids, nl sclera ENMT: nl external ears & nose, nl lips & teeth, nl nasal mucosa & septum Neck: non-tender, supple Respiratory: clear to auscultation, normal air movement Cardiovascular: nl pulses, regular rate and rhythm Gastrointestinal: nl liver, spleen, non-tender, soft Musculoskeletal: nl extremities to inspection, nl gait and stance Extremities: normal pulses Neurological: YACHT CAPTAIN II-XII intact, nl mental status, nl speech, nl strength Skin: nl turgor, No rash or lesions Lymph: nl lymph nodes Results Result Diagram: 11/18/16 0445 11/18/16 0445 Results 24 hrs Laboratory Tests Test 11/18/16 04:45 White Blood Count 10.5 Red Blood Count 3.69 L Hemoglobin 10.0 L Hematocrit 31.5 L Mean Corpuscular Volume 85.4 Mean Corpuscular Hemoglobin 27.1 L Mean Corpuscular Hemoglobin Concent 31.7 L Red Cell Distribution Width 15.7 H Platelet Count 548 H Mean Platelet Volume 9.5 Neutrophils % 79.4 H Lymphocytes % 10.5 L Monocytes % 6.4 Eosinophils % 2.5 Basophils % 0.4 Nucleated Red Blood Cells % 0.0 Neutrophils # 8.4 H Lymphocytes # 1.1 Monocytes # 0.7 Eosinophils # 0.3 Basophils # 0.0 Nucleated Red Blood Cells # 0.0 Sodium Level 137 Potassium Level 3.5 Chloride Level 101 Carbon Dioxide Level 30 Anion Gap 10 # Blood Urea Nitrogen 26 H Creatinine 0.59 Glucose Level 154 Calcium Level 9.5 Total Bilirubin 0.0 L Direct Bilirubin 0.00 Indirect Bilirubin 0.0 Aspartate Amino Transf (AST/SGOT) 27 Alanine Aminotransferase (ALT/SGPT) 27 Alkaline Phosphatase 146 H Total Protein 7.1 Albumin 3.0 L Globulin 4.10 H Albumin/Globulin Ratio 0.73 Medications Medications Current Medications Ascorbic Acid (Vitamin C) 500 mg DAILY PO Last administered on 11/18/16 08:36 ; Admin Dose 500 MG; Start 11/05/16 at 09:00 Phenol (Cepastat Lozenge) 1 lozenge Q6 PRN MM SORE THROAT; Start 11/04/16 at 16: 30 Folic Acid (Folic Acid) 1 mg DAILY PO Last administered on 11/18/16 08:36; Admin Dose 1 MG; Start 11/05/16 at 09:00 Multivitamins Therapeutic (Theragran) 1 tab DAILY PO Last administered on 08:35; Admin Dose 1 TAB; Start 11/05/16 at 09:00 Eye Lubricant (Artificial Tears Oph) 2 drop Q6H PRN BOTH EYES DRY EYES; Start 11/04/16 at 16:30 Amlodipine Besylate (Norvasc) 5 mg DAILY PO Last administered on 11/18/16 08: 36; Admin Dose 5 MG; Start 11/05/16 at 09:00 Morphine Sulfate (morphine) 4 mg Q4H PRN IV PAIN LEVEL 7-10 Last administered on 11/18/16 12:44; Admin Dose 4 MG; Start 11/05/16 at 00:00 Enoxaparin Sodium (Lovenox) 30 mg DAILY SC Last administered on 11/18/16 08:37 ; Admin Dose 30 MG; Start 11/07/16 at 09:00; Status Future hold Hydralazine HCl (Apresoline) 10 mg Q4H PRN IV SBP >160 Last administered on 11/09 20:03; Admin Dose 10 MG; Start 11/06/16 at 16:00 Lorazepam 0.5 mg 0.5 mg Q6H PRN IV ANXIETY Last administered on 11/17/16 22:14 ; Admin Dose 0.5 MG; Start 11/06/16 at 18:30 Piperacillin Sod/ Tazobactam Sod (Zosyn 2.25gm/ 50ml (Pmx)) 50 ml @ 100 mls/hr Q8 IVPB Last administered on 11/18/16 14:09; Admin Dose 100 MLS/HR; Start 11/10 at 22:00; Stop 11/19/16 at 23:00 Acetaminophen (Tylenol Liquid) 650 mg Q4H PRN GTB PAIN AND OR ELEVATED TEMP; Start 11/11/16 at 11:00 Docusate Sodium (Colace Liquid Cup) 100 mg BID GTB Last administered on 08:35; Admin Dose 100 MG; Start 11/11/16 at 21:00 Doxycycline Hyclate (Vibramycin) 100 mg BID GTB Last administered on 11/18/16 08:35; Admin Dose 100 MG; Start 11/13/16 at 09:00; Stop 11/19/16 at 23:00 DAHIANA CANTOR MD November 18, 2016 18:09
[2016-11-18 18:36] VITALS: BP 137/80; RESP 19
[2016-11-18 20:12] VITALS: BP 134/76; RESP 19
[2016-11-19 05:37] LABS: ADD SCAN DIFF NO
[2016-11-19 05:43] LABS: BASOPHIL # 0.1 10^3/ul (0.0-0.1); BASOPHILS % 0.6 % (0.0-2.0); EOSINOPHILS # 0.3 10^3/ul (0.0-0.5); EOSINOPHILS % 2.5 % (0.0-7.0); HEMATOCRIT 29.7 % (37.0-47.0); HEMOGLOBIN 9.3 g/dl (12.0-16.0); LYMPHOCYTES # 1.4 10^3/ul (0.8-2.9); LYMPHOCYTES % 13.4 % (15.0-51.0); MEAN CORPUSCULAR HEMOGLOBIN 27.2 pg (29.0-33.0); MEAN CORPUSCULAR HGB CONC 31.3 g/dl (32.0-37.0); MEAN CORPUSCULAR VOLUME 86.8 fl (82.0-101.0); MEAN PLATELET VOLUME 9.4 fl (7.4-10.4); MONOCYTE # 0.7 10^3/ul (0.3-0.9); MONOCYTES % 6.8 % (0.0-11.0); NEUTROPHIL # 8.1 10^3/ul (1.6-7.5); NEUTROPHILS % 76.1 % (39.0-77.0); PLATELET COUNT 506 10^3/UL (140-415); RED BLOOD COUNT 3.42 10^6/ul (4.20-5.40); WHITE BLOOD COUNT 10.6 10^3/ul (4.8-10.8)
[2016-11-19 06:06] LABS: POTASSIUM 3.4 mmol/L (3.5-5.1)
[2016-11-19 06:08] LABS: CREATININE 0.7 mg/dl (0.44-1.00)
[2016-11-19 06:09] LABS: CALCIUM 9.4 mg/dl (8.4-10.2)
[2016-11-19] MEDS: PIPER-TAZO 2.25 GM (PMX) 50 ML IVPB SCH ×3 (06:24→22:21)
[2016-11-19 07:24] VITALS: BP 141/70; RESP 19
[2016-11-19] MEDS: FOLIC ACID 1 MG TAB PO SCH (09:21)
[2016-11-19] MEDS: MULTIVITAMINS THERAPEUTIC TAB PO SCH (09:21)
[2016-11-19] MEDS: AMLODIPINE 5 MG TAB PO SCH (09:22)
[2016-11-19] MEDS: ASCORBIC ACID 500 MG TAB PO SCH (09:22)
[2016-11-19] MEDS: ENOXAPARIN 30 MG/0.3 ML SYG SC SCH (09:23)
[2016-11-19] MEDS ORDERED: POTASSIUM CHLORIDE (SR) 20 MEQ TAB PO STA (09:24)
[2016-11-19] MEDS: DOCUSATE SODIUM 10 MG/ML (10ML CUP) GTB SCH ×2 (09:24→20:17)
[2016-11-19] MEDS: DOXYCYCLINE 100 MG TAB GTB SCH ×2 (09:24→20:18)
--- NOTE | 2016-11-19 09:49 | PN ---
DATE: SUBJECTIVE: The patient has mild shortness of breath. No cough. Appears lethargic. VITAL SIGNS: Temperature 98, blood pressure 140/70, O2 sat 97% on room air. HEENT: Head normocephalic. CHEST: Occasional wheezes. HEART: S1, S2 with no gallops. EXTREMITIES: No edema. IMAGING: Chest x-ray done yesterday shows patchy infiltrates bilaterally, left lower lobe infiltrat es, slightly increased. IMPRESSION: 1. Syndrome of inappropriate anti-diuretic hormone, improved. 2. Dysphagia, status post G tube feedings. 3. Pulmonary fibrosis, possible pneumonia, left lower lobe, etiology unclear. The patient also has a subcarinal node with a polyp-like lesion in the trachea, possibility of malignancy not ruled out. PLAN: The patient also has severe hypomagnesemia and hypokalemia. Replace same. We will request Dr Magda Calderon for pulmonary consultation. Dictated By: KASSI RICARDO MD, SR/SHANTEL Conf#: [id number] DID#: [id number]
[2016-11-19] MEDS ORDERED: POTASSIUM CHLORIDE 20 MEQ POWDER FOR ORAL SOLN GTB ONE (12:00)
--- NOTE | 2016-11-19 13:07 | CONS ---
DATE OF ADMISSION: 11/04/2016 DATE OF CONSULTATION: 11/18/2016 TYPE OF CONSULTATION: Pulmonary. REASON FOR CONSULTATION: Pneumonia Thank you, Dr. Angeles for this consultation. HISTORY OF PRESENT ILLNESS: This is an 86-year-old lady with multiple medical problems including mi ld dementia, anemia, failure to thrive, osteoporosis who came in with urinary tract infection with a ssociated delirium and dysphagia and during the course of her admission has had progressive dyspnea with now evidence of pneumonia on chest x-ray. The patient is nonverbal, unable to give me further details. PAST MEDICAL HISTORY: As above. MEDICATIONS: Per chart. ALLERGIES: NONE. SOCIAL HISTORY: Nonsmoker, no alcohol, no history of drug use. FAMILY HISTORY: Noncontributory. PHYSICAL EXAMINATION: GENERAL: Cachectic elderly lady. VITAL SIGNS: Temperature 98, pulse 97, blood pressure 141/70, O2 saturation 96% on room air. NECK: Supple. No JVD or lymphadenopathy. CARDIAC: S1, S2, no added sounds or murmurs. LABORATORY DATA: White count 10.6, hemoglobin 9.3, platelets of 506. BUN 36, creatinine 0.7. INR 1.17. IMAGING: Chest x-ray shows patchy infiltrates. IMPRESSION: 1. Failure to thrive. 2. Likely aspiration pneumonia. 3. Marked cachexia. 4. Dementia. 5. Recent urinary tract infection. 6. History of hypertension. PLAN: 1. Continue aspiration precautions. 2. Continue PEG feeding. 3. Continue antibiotics. RECOMMENDATIONS 1. Aspiration precautions. 2. Pulmonary toilet. 3. Consider palliative care consult. 4. Infectious disease recommendations. Dictated By: BRENDEN WEINER/SHANTEL Conf#: [id number] DID#: [id number]
[2016-11-19] MEDS: LORAZEPAM 2 MG INJ IV PRN ×2 (16:45→23:28)
--- NOTE | 2016-11-19 19:25 | CONS ---
Date/Time of Note Date/Time of Note DATE: 11/19/16 TIME: 19:25 Assessment/Plan Assessment/Plan Additional Assessment/Plan Assessment/Plan Additional Assessment/Plan IMPRESSION: 1. Cachexia. 2. Malnutrition. 3. Dysphagia. 4. Gallstones with dilated biliary system, mild elevation of alkaline phosphatase. Biliary pathology cannot be absolutely ruled out. MRCP is negative for bile duct stone. Patient has no abdominal pain or tenderness. 5. Pneumonia. Also interstitial lung disease 6. Hypertension. 7. Dementia. 8. Anemia. 9. Status post PEG patient is tolerating feeding 10. Leukocytosis, patient is on Zosyn now 11. Hyponatremia, corrected 12. Pulmonary fibrosis Plan Continue present care Slowly increase feeding Continue antibiotic Consultation Date/Type/Reason Admit Date/Time November 04, 2016 at 14:31 Type of Consultation: renal 24 HR Interval Summary Constitutional: no complaints Exam/Review of Systems Vital Signs Vitals Vital Signs Date Time Temp Pulse Resp B/P Pulse Ox O2 Delivery O2 Flow Rate FiO2 11/19/16 07:24 98.0 97 19 141/70 97 11/18/16 18:36 Room Air Intake and Output 11/18/16 11/18/16 11/19/16 15:00 23:00 07:00 Intake Total 50 ml 570 ml 560 ml Output Total 600 ml Balance 50 ml 570 ml -40 ml Exam Constitutional: alert, oriented, well developed Psych: nl mood/affect, no complaints Head: atraumatic, normocephalic Eyes: EOMI, PERRL, nl conjunctiva, nl lids, nl sclera ENMT: nl external ears & nose, nl lips & teeth, nl nasal mucosa & septum Neck: non-tender, supple Respiratory: clear to auscultation, normal air movement Cardiovascular: nl pulses, regular rate and rhythm Gastrointestinal: nl liver, spleen, non-tender, soft Musculoskeletal: nl extremities to inspection, nl gait and stance Extremities: normal pulses 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 intact, nl mental status, nl speech, nl strength Skin: nl turgor, No rash or lesions Lymph: nl lymph nodes Results Result Diagram: 11/19/16 0500 11/19/16 0500 Results 24 hrs Laboratory Tests Test 11/19/16 05:00 White Blood Count 10.6 Red Blood Count 3.42 L Hemoglobin 9.3 L Hematocrit 29.7 L Mean Corpuscular Volume 86.8 Mean Corpuscular Hemoglobin 27.2 L Mean Corpuscular Hemoglobin Concent 31.3 L Red Cell Distribution Width 16.0 H Platelet Count 506 H Mean Platelet Volume 9.4 Neutrophils % 76.1 Lymphocytes % 13.4 L Monocytes % 6.8 Eosinophils % 2.5 Basophils % 0.6 Nucleated Red Blood Cells % 0.0 Neutrophils # 8.1 H Lymphocytes # 1.4 Monocytes # 0.7 Eosinophils # 0.3 Basophils # 0.1 Nucleated Red Blood Cells # 0.0 Sodium Level 144 Potassium Level 3.4 L Chloride Level 100 Carbon Dioxide Level 32 H Anion Gap 15 Blood Urea Nitrogen 36 H Creatinine 0.70 Glucose Level 115 Calcium Level 9.4 Medications Medications Current Medications Ascorbic Acid (Vitamin C) 500 mg DAILY PO Last administered on 11/19/16 09:22 ; Admin Dose 500 MG; Start 11/05/16 at 09:00 Phenol (Cepastat Lozenge) 1 lozenge Q6 PRN MM SORE THROAT; Start 11/04/16 at 16: 30 Folic Acid (Folic Acid) 1 mg DAILY PO Last administered on 11/19/16 09:21; Admin Dose 1 MG; Start 11/05/16 at 09:00 Multivitamins Therapeutic (Theragran) 1 tab DAILY PO Last administered on 09:21; Admin Dose 1 TAB; Start 11/05/16 at 09:00 Eye Lubricant (Artificial Tears Oph) 2 drop Q6H PRN BOTH EYES DRY EYES; Start 11/04/16 at 16:30 Amlodipine Besylate (Norvasc) 5 mg DAILY PO Last administered on 11/19/16 09: 22; Admin Dose 5 MG; Start 11/05/16 at 09:00 Morphine Sulfate (morphine) 4 mg Q4H PRN IV PAIN LEVEL 7-10 Last administered on 11/18/16 22:05; Admin Dose 4 MG; Start 11/05/16 at 00:00 Enoxaparin Sodium (Lovenox) 30 mg DAILY SC Last administered on 11/19/16 09:23 ; Admin Dose 30 MG; Start 11/07/16 at 09:00; Status Future hold Hydralazine HCl (Apresoline) 10 mg Q4H PRN IV SBP >160 Last administered on 11/09 20:03; Admin Dose 10 MG; Start 11/06/16 at 16:00 Lorazepam 0.5 mg 0.5 mg Q6H PRN IV ANXIETY Last administered on 11/19/16 16:45 ; Admin Dose 0.5 MG; Start 11/06/16 at 18:30 Piperacillin Sod/ Tazobactam Sod (Zosyn 2.25gm/ 50ml (Pmx)) 50 ml @ 100 mls/hr Q8 IVPB Last administered on 11/19/16 12:07; Admin Dose 100 MLS/HR; Start 11/10 at 22:00; Stop 11/19/16 at 23:00 Acetaminophen (Tylenol Liquid) 650 mg Q4H PRN GTB PAIN AND OR ELEVATED TEMP; Start 11/11/16 at 11:00 Docusate Sodium (Colace Liquid Cup) 100 mg BID GTB Last administered on 09:24; Admin Dose 100 MG; Start 11/11/16 at 21:00 Doxycycline Hyclate (Vibramycin) 100 mg BID GTB Last administered on 11/19/16 09:24; Admin Dose 100 MG; Start 11/13/16 at 09:00; Stop 11/19/16 at 23:00 DAHIANA CANTOR MD November 19, 2016 19:25
[2016-11-19 19:53] VITALS: BP 138/84; RESP 18
[2016-11-19] MEDS ORDERED: DOXYCYCLINE 100 MG TAB GTB SCH (23:00)
[2016-11-20 05:16] LABS: ADD SCAN DIFF NO
[2016-11-20 05:21] VITALS: BP 143/84; PULSE 94
[2016-11-20 05:23] LABS: BASOPHILS % 0.4 % (0.0-2.0); EOSINOPHILS # 0.1 10^3/ul (0.0-0.5); EOSINOPHILS % 0.7 % (0.0-7.0); HEMATOCRIT 31.2 % (37.0-47.0); HEMOGLOBIN 9.6 g/dl (12.0-16.0); LYMPHOCYTES # 1.3 10^3/ul (0.8-2.9); LYMPHOCYTES % 11.5 % (15.0-51.0); MEAN CORPUSCULAR HGB CONC 30.8 g/dl (32.0-37.0); MEAN CORPUSCULAR VOLUME 87.9 fl (82.0-101.0); MEAN PLATELET VOLUME 9.3 fl (7.4-10.4); MONOCYTE # 0.7 10^3/ul (0.3-0.9); NEUTROPHIL # 8.9 10^3/ul (1.6-7.5); NEUTROPHILS % 80.8 % (39.0-77.0); PLATELET COUNT 495 10^3/UL (140-415); RED BLOOD COUNT 3.55 10^6/ul (4.20-5.40); RED CELL DISTRIBUTION WIDTH 16.3 % (11.5-14.5)
[2016-11-20] MEDS: morphine 4 MG/ML VIAL IV PRN ×2 (05:26→10:10)
[2016-11-20 05:38] LABS: POTASSIUM 3.9 mmol/L (3.5-5.1)
[2016-11-20 05:41] LABS: CALCIUM 9.8 mg/dl (8.4-10.2); CREATININE 0.69 mg/dl (0.44-1.00)
[2016-11-20 05:42] LABS: MAGNESIUM 2.6 mg/dl (1.7-2.5)
[2016-11-20 07:34] VITALS: BP 134/76; RESP 19
[2016-11-20] MEDS: ASCORBIC ACID 500 MG TAB PO SCH (09:29)
[2016-11-20] MEDS: MULTIVITAMINS THERAPEUTIC TAB PO SCH (09:29)
[2016-11-20] MEDS: AMLODIPINE 5 MG TAB PO SCH (09:29)
[2016-11-20] MEDS: FOLIC ACID 1 MG TAB PO SCH (09:29)
[2016-11-20] MEDS: DOCUSATE SODIUM 10 MG/ML (10ML CUP) GTB SCH ×2 (09:29→20:18)
[2016-11-20] MEDS: ENOXAPARIN 30 MG/0.3 ML SYG SC SCH (09:35)
--- NOTE | 2016-11-20 14:55 | CONS ---
Date/Time of Note Date/Time of Note DATE: 11/20/16 TIME: 14:51 Consult Date/Type/Reason Admit Date/Time November 04, 2016 at 14:31 Initial Consult Date 11/13/16 Type of Consultation: Pulm Subjective Remains lethargic on nc O2. Continues TF Objective Vital Signs Date Time Temp Pulse Resp B/P Pulse Ox O2 Delivery O2 Flow Rate FiO2 11/20/16 08:00 2.0 11/20/16 07:34 98.0 91 19 134/76 98 11/18/16 18:36 Room Air Intake and Output 11/19/16 11/19/16 11/20/16 15:00 23:00 07:00 Intake Total 50 ml 480 ml 560 ml Output Total 800 ml 550 ml Balance 50 ml -320 ml 10 ml Exam Results/Medications Result Diagram: 11/20/16 0415 11/20/16 0450 Results 24 hrs Laboratory Tests Test 11/20/16 04:15 11/20/16 04:50 White Blood Count 11.0 H Red Blood Count 3.55 L Hemoglobin 9.6 L Hematocrit 31.2 L Mean Corpuscular Volume 87.9 Mean Corpuscular Hemoglobin 27.0 L Mean Corpuscular Hemoglobin Concent 30.8 L Red Cell Distribution Width 16.3 H Platelet Count 495 H Mean Platelet Volume 9.3 Neutrophils % 80.8 H Lymphocytes % 11.5 L Monocytes % 6.0 Eosinophils % 0.7 Basophils % 0.4 Nucleated Red Blood Cells % 0.0 Neutrophils # 8.9 H Lymphocytes # 1.3 Monocytes # 0.7 Eosinophils # 0.1 Basophils # 0.0 Nucleated Red Blood Cells # 0.0 Sodium Level 150 H Potassium Level 3.9 Chloride Level 106 Carbon Dioxide Level 32 H Anion Gap 16 Blood Urea Nitrogen 38 H Creatinine 0.69 Glucose Level 150 Calcium Level 9.8 Magnesium Level 2.6 H Medications Current Medications Ascorbic Acid (Vitamin C) 500 mg DAILY PO Last administered on 11/20/16 09:29 ; Admin Dose 500 MG; Start 11/05/16 at 09:00 Phenol (Cepastat Lozenge) 1 lozenge Q6 PRN MM SORE THROAT; Start 11/04/16 at 16: 30 Folic Acid (Folic Acid) 1 mg DAILY PO Last administered on 11/20/16 09:29; Admin Dose 1 MG; Start 11/05/16 at 09:00 Multivitamins Therapeutic (Theragran) 1 tab DAILY PO Last administered on 09:29; Admin Dose 1 TAB; Start 11/05/16 at 09:00 Eye Lubricant (Artificial Tears Oph) 2 drop Q6H PRN BOTH EYES DRY EYES; Start 11/04/16 at 16:30 Amlodipine Besylate (Norvasc) 5 mg DAILY PO Last administered on 11/20/16 09: 29; Admin Dose 5 MG; Start 11/05/16 at 09:00 Enoxaparin Sodium (Lovenox) 30 mg DAILY SC Last administered on 11/20/16 09:35 ; Admin Dose 30 MG; Start 11/07/16 at 09:00; Status Future hold Hydralazine HCl (Apresoline) 10 mg Q4H PRN IV SBP >160 Last administered on 11/09 20:03; Admin Dose 10 MG; Start 11/06/16 at 16:00 Lorazepam (Ativan) 0.5 mg Q6H PRN IV ANXIETY Last administered on 11/19/16 23: 28; Admin Dose 0.5 MG; Start 11/06/16 at 18:30 Acetaminophen (Tylenol Liquid) 650 mg Q4H PRN GTB PAIN AND OR ELEVATED TEMP; Start 11/11/16 at 11:00 Docusate Sodium (Colace Liquid Cup) 100 mg BID GTB Last administered on 09:29; Admin Dose 100 MG; Start 11/11/16 at 21:00 Morphine Sulfate (morphine) 2 mg Q4H PRN IV PAIN LEVEL 7-10; Start 11/20/16 at 16:00 Assessment/Plan Chief Complaint/Hosp Course IMPRESSION: 1. Failure to thrive.s/p PEG 2. Likely aspiration pneumonia.Lung nodule. 3. Marked cachexia. 4. Dementia. 5. Recent urinary tract infection. 6. History of hypertension. RECOMMENDATIONS 1. Aspiration precautions. 2. Pulmonary toilet. 3. Consider palliative care consult. 4. Infectious disease recommendations. dw cyanide case hardener and pmd Problems: BRENDEN SCHAEFFER MD, [facility] November 20, 2016 14:55
--- NOTE | 2016-11-20 14:57 | PN ---
DATE: 11/20/2016 SUBJECTIVE: The patient is very lethargic, keeps moaning. OBJECTIVE: VITAL SIGNS: Temperature 98, blood pressure 134/76, O2 saturation 98% on 2 L. CHEST: Few wheezes heard anteriorly. HEART: S1, S2 with no definite gallops. EXTREMITIES: No edema. Homans sign is negative. LABORATORY DATA: Sodium 150, potassium 3.9, BUN 38, creatinine 0.69, glucose 150, magnesium 2.6. The patient's condition is declining. Will discuss with the patient's family regarding code status and consideration of palliative care given underlying interstitial lung disease and per recommendati ons of Dr. Calderon. Hypernatremia to be treated with increased free fluid intake. I will recheck l abs in a.m. Decrease the morphine dosage from 4 to 2 mg. Dictated By: KASSI RICARDO MD, SR/SHANTEL Conf#: [id number] DID#: [id number]
--- NOTE | 2016-11-20 17:09 | CONS ---
Date/Time of Note Date/Time of Note DATE: 11/20/16 TIME: 17:07 Assessment/Plan Assessment/Plan Additional Assessment/Plan Additional Assessment/Plan Assessment/Plan Additional Assessment/Plan IMPRESSION: 1. Cachexia. 2. Malnutrition. 3. Dysphagia. 4. Gallstones with dilated biliary system, mild elevation of alkaline phosphatase. Biliary pathology cannot be absolutely ruled out. MRCP is negative for bile duct stone. Patient has no abdominal pain or tenderness. 5. Pneumonia. Also interstitial lung disease 6. Hypertension. 7. Dementia. 8. Anemia. 9. Status post PEG patient is tolerating feeding 10. Leukocytosis, patient is on Zosyn now 11. Hyponatremia, corrected, no patient has hyponatremia with sodium of 150 12. Pulmonary fibrosis Plan Continue present care Slowly increase feeding Continue antibiotic IV hydration Aspiration precaution Consultation Date/Type/Reason Admit Date/Time November 04, 2016 at 14:31 Type of Consultation: Pulm 24 HR Interval Summary Free Text/Dictation No nausea no vomiting Discussed with the staff there is no evidence of aspiration of formula. Exam/Review of Systems Vital Signs Vitals Vital Signs Date Time Temp Pulse Resp B/P Pulse Ox O2 Delivery O2 Flow Rate FiO2 11/20/16 08:00 2.0 11/20/16 07:34 98.0 91 19 134/76 98 11/18/16 18:36 Room Air Intake and Output 11/19/16 11/19/16 11/20/16 15:00 23:00 07:00 Intake Total 50 ml 480 ml 560 ml Output Total 800 ml 550 ml Balance 50 ml -320 ml 10 ml Exam Constitutional: alert, oriented, well developed Psych: nl mood/affect, no complaints Head: atraumatic, normocephalic Eyes: EOMI, PERRL, nl conjunctiva, nl lids, nl sclera ENMT: nl external ears & nose, nl lips & teeth, nl nasal mucosa & septum Neck: non-tender, supple Respiratory: clear to auscultation, normal air movement Cardiovascular: nl pulses, regular rate and rhythm Gastrointestinal: nl liver, spleen, non-tender, soft Musculoskeletal: nl extremities to inspection, nl gait and stance Extremities: normal pulses Neurological: WOOD BORER II-XII intact, nl mental status, nl speech, nl strength Skin: nl turgor, No rash or lesions Lymph: nl lymph nodes Results Result Diagram: 11/20/16 0415 11/20/16 0450 Results 24 hrs Laboratory Tests Test 11/20/16 04:15 11/20/16 04:50 White Blood Count 11.0 H Red Blood Count 3.55 L Hemoglobin 9.6 L Hematocrit 31.2 L Mean Corpuscular Volume 87.9 Mean Corpuscular Hemoglobin 27.0 L Mean Corpuscular Hemoglobin Concent 30.8 L Red Cell Distribution Width 16.3 H Platelet Count 495 H Mean Platelet Volume 9.3 Neutrophils % 80.8 H Lymphocytes % 11.5 L Monocytes % 6.0 Eosinophils % 0.7 Basophils % 0.4 Nucleated Red Blood Cells % 0.0 Neutrophils # 8.9 H Lymphocytes # 1.3 Monocytes # 0.7 Eosinophils # 0.1 Basophils # 0.0 Nucleated Red Blood Cells # 0.0 Sodium Level 150 H Potassium Level 3.9 Chloride Level 106 Carbon Dioxide Level 32 H Anion Gap 16 Blood Urea Nitrogen 38 H Creatinine 0.69 Glucose Level 150 Calcium Level 9.8 Magnesium Level 2.6 H Medications Medications Current Medications Ascorbic Acid (Vitamin C) 500 mg DAILY PO Last administered on 11/20/16 09:29 ; Admin Dose 500 MG; Start 11/05/16 at 09:00 Phenol (Cepastat Lozenge) 1 lozenge Q6 PRN MM SORE THROAT; Start 11/04/16 at 16: 30 Folic Acid (Folic Acid) 1 mg DAILY PO Last administered on 11/20/16 09:29; Admin Dose 1 MG; Start 11/05/16 at 09:00 Multivitamins Therapeutic (Theragran) 1 tab DAILY PO Last administered on 09:29; Admin Dose 1 TAB; Start 11/05/16 at 09:00 Eye Lubricant (Artificial Tears Oph) 2 drop Q6H PRN BOTH EYES DRY EYES; Start 11/04/16 at 16:30 Amlodipine Besylate (Norvasc) 5 mg DAILY PO Last administered on 11/20/16 09: 29; Admin Dose 5 MG; Start 11/05/16 at 09:00 Enoxaparin Sodium (Lovenox) 30 mg DAILY SC Last administered on 11/20/16 09:35 ; Admin Dose 30 MG; Start 11/07/16 at 09:00; Status Future hold Hydralazine HCl (Apresoline) 10 mg Q4H PRN IV SBP >160 Last administered on 11/09 20:03; Admin Dose 10 MG; Start 11/06/16 at 16:00 Lorazepam (Ativan) 0.5 mg Q6H PRN IV ANXIETY Last administered on 11/19/16 23: 28; Admin Dose 0.5 MG; Start 11/06/16 at 18:30 Acetaminophen (Tylenol Liquid) 650 mg Q4H PRN GTB PAIN AND OR ELEVATED TEMP; Start 11/11/16 at 11:00 Docusate Sodium (Colace Liquid Cup) 100 mg BID GTB Last administered on 09:29; Admin Dose 100 MG; Start 11/11/16 at 21:00 Morphine Sulfate (morphine) 2 mg Q4H PRN IV PAIN LEVEL 7-10; Start 11/20/16 at 16:00 DAHIANA CANTOR MD November 20, 2016 17:09
[2016-11-20] MEDS: morphine 2 MG INJ IV PRN (21:05)
[2016-11-20 21:23] VITALS: BP 123/72; RESP 18
[2016-11-21] MEDS: morphine 2 MG INJ IV PRN ×2 (05:01→13:20)
[2016-11-21 05:36] LABS: ADD SCAN DIFF NO
[2016-11-21 05:40] LABS: BASOPHIL # 0.1 10^3/ul (0.0-0.1); BASOPHILS % 0.4 % (0.0-2.0); EOSINOPHILS # 0.3 10^3/ul (0.0-0.5); EOSINOPHILS % 2.3 % (0.0-7.0); HEMATOCRIT 29.8 % (37.0-47.0); HEMOGLOBIN 9.2 g/dl (12.0-16.0); LYMPHOCYTES # 1.8 10^3/ul (0.8-2.9); LYMPHOCYTES % 14.4 % (15.0-51.0); MEAN CORPUSCULAR HEMOGLOBIN 27.5 pg (29.0-33.0); MEAN CORPUSCULAR HGB CONC 30.9 g/dl (32.0-37.0); MEAN CORPUSCULAR VOLUME 89.2 fl (82.0-101.0); MEAN PLATELET VOLUME 9.5 fl (7.4-10.4); MONOCYTE # 0.7 10^3/ul (0.3-0.9); MONOCYTES % 5.8 % (0.0-11.0); NEUTROPHIL # 9.5 10^3/ul (1.6-7.5); NEUTROPHILS % 76.5 % (39.0-77.0); PLATELET COUNT 536 10^3/UL (140-415); RED BLOOD COUNT 3.34 10^6/ul (4.20-5.40); RED CELL DISTRIBUTION WIDTH 16.5 % (11.5-14.5); WHITE BLOOD COUNT 12.4 10^3/ul (4.8-10.8)
[2016-11-21 06:04] LABS: CALCIUM 9.6 mg/dl (8.4-10.2); CREATININE 0.68 mg/dl (0.44-1.00)
[2016-11-21 07:51] VITALS: BP 123/68; RESP 16
[2016-11-21] MEDS: FOLIC ACID 1 MG TAB PO SCH (08:44)
[2016-11-21] MEDS: MULTIVITAMINS THERAPEUTIC TAB PO SCH (08:44)
[2016-11-21] MEDS: ENOXAPARIN 30 MG/0.3 ML SYG SC SCH (08:44)
[2016-11-21] MEDS: AMLODIPINE 5 MG TAB PO SCH (08:45)
[2016-11-21] MEDS: DOCUSATE SODIUM 10 MG/ML (10ML CUP) GTB SCH ×2 (08:45→20:21)
[2016-11-21] MEDS: ASCORBIC ACID 500 MG TAB PO SCH (08:45)
[2016-11-21 15:24] LABS: ADD SCAN DIFF NO
[2016-11-21 15:28] LABS: BASOPHIL # 0.1 10^3/ul (0.0-0.1); BASOPHILS % 0.5 % (0.0-2.0); EOSINOPHILS # 0.2 10^3/ul (0.0-0.5); EOSINOPHILS % 1.9 % (0.0-7.0); HEMATOCRIT 30.9 % (37.0-47.0); HEMOGLOBIN 9.3 g/dl (12.0-16.0); LYMPHOCYTES # 1.6 10^3/ul (0.8-2.9); LYMPHOCYTES % 14.8 % (15.0-51.0); MEAN CORPUSCULAR HEMOGLOBIN 27.4 pg (29.0-33.0); MEAN CORPUSCULAR HGB CONC 30.1 g/dl (32.0-37.0); MEAN CORPUSCULAR VOLUME 91.2 fl (82.0-101.0); MEAN PLATELET VOLUME 9.6 fl (7.4-10.4); MONOCYTE # 0.6 10^3/ul (0.3-0.9); MONOCYTES % 5.8 % (0.0-11.0); NEUTROPHIL # 8.4 10^3/ul (1.6-7.5); NEUTROPHILS % 76.3 % (39.0-77.0); PLATELET COUNT 473 10^3/UL (140-415); RED BLOOD COUNT 3.39 10^6/ul (4.20-5.40); RED CELL DISTRIBUTION WIDTH 16.5 % (11.5-14.5)
--- NOTE | 2016-11-21 17:16 | PN ---
DATE: SUBJECTIVE: The patient appears weak, tachypneic, keep moaning about. OBJECTIVE: VITAL SIGNS: Temperature 97.1, blood pressure 123/68, O2 sats 100% on 2 liters nasal cannula. HEENT: Mild pallor without cyanosis. CHEST: Few wheezes heard anteriorly. HEART: S1, S2 heard with no definite gallops. ABDOMEN: Soft, nontender, no hepatosplenomegaly. EXTREMITIES: No edema. NEUROLOGIC: The patient is having lorenzo red blood with ____ stools through the rectum. Presently i s having rectal bleeding. LABORATORY DATA: Stat CBC was obtained and the WBC count is 11.0, hematocrit 30.9, no significant d rop since morning. IMPRESSION: 1. Hypernatremia. 2. Rectal bleeding. Etiology unclear. 3. Dysphagia, status post G-tube feedings. 4. Pulmonary fibrosis and likely has interstitial lung disease. Prognosis is poor. PLAN: Will discontinue Lovenox. Start the patient on increased free water intake, namely D5 water to improve the hyponatremia. Observe for bleeding and transfuse as needed. Still awaiting a call b ack from the patient's family regarding her consideration of no code status and also palliative care . Dictated By: KASSI RICARDO MD, SR/SHANTEL Conf#: [id number] DID#: [id number]
[2016-11-21] MEDS: DEXTROSE 5% 1,000 ML IV SCH (17:57)
--- NOTE | 2016-11-21 20:02 | CONS ---
Date/Time of Note Date/Time of Note DATE: 11/21/16 TIME: 20:01 Assessment/Plan Assessment/Plan Additional Assessment/Plan 1. Cachexia. 2. Malnutrition. 3. Dysphagia. 4. Gallstones with dilated biliary system, mild elevation of alkaline phosphatase. Biliary pathology cannot be absolutely ruled out. MRCP is negative for bile duct stone. Patient has no abdominal pain or tenderness. 5. Pneumonia. Also interstitial lung disease 6. Hypertension. 7. Dementia. 8. Anemia. 9. Status post PEG patient is tolerating feeding 10. Leukocytosis, patient is on Zosyn now 11. Hyponatremia, corrected, no patient has hyponatremia with sodium of 150 12. Pulmonary fibrosis Plan Continue present care Slowly increase feeding Continue antibiotic IV hydration Aspiration precaution Consultation Date/Type/Reason Admit Date/Time November 04, 2016 at 14:31 Type of Consultation: Pulm 24 HR Interval Summary Constitutional: improved, no complaints Exam/Review of Systems Vital Signs Vitals Vital Signs Date Time Temp Pulse Resp B/P Pulse Ox O2 Delivery O2 Flow Rate FiO2 11/21/16 18:58 2.0 11/21/16 09:03 Nasal Cannula 11/21/16 07:51 97.1 95 16 123/68 100 Intake and Output 11/20/16 11/20/16 11/21/16 15:00 23:00 07:00 Intake Total 680 ml 680 ml Output Total 550 ml Balance 680 ml 130 ml Exam Constitutional: alert, oriented, well developed Psych: nl mood/affect, no complaints Head: atraumatic, normocephalic Eyes: EOMI, PERRL, nl conjunctiva, nl lids, nl sclera ENMT: nl external ears & nose, nl lips & teeth, nl nasal mucosa & septum Neck: non-tender, supple Respiratory: clear to auscultation, normal air movement Cardiovascular: nl pulses, regular rate and rhythm Gastrointestinal: nl liver, spleen, non-tender, soft Musculoskeletal: nl extremities to inspection, nl gait and stance Extremities: normal pulses Neurological: MECHANICAL MAINTENANCE TECHNICIAN II-XII intact, nl mental status, nl speech, nl strength Skin: nl turgor, No rash or lesions Lymph: nl lymph nodes Results Result Diagram: 11/21/16 1430 11/21/16 0446 Results 24 hrs Laboratory Tests Test 11/21/16 04:46 11/21/16 14:30 White Blood Count 12.4 H 11.0 H Red Blood Count 3.34 L 3.39 L Hemoglobin 9.2 L 9.3 L Hematocrit 29.8 L 30.9 L Mean Corpuscular Volume 89.2 91.2 Mean Corpuscular Hemoglobin 27.5 L 27.4 L Mean Corpuscular Hemoglobin Concent 30.9 L 30.1 L Red Cell Distribution Width 16.5 H 16.5 H Platelet Count 536 H 473 H Mean Platelet Volume 9.5 9.6 Neutrophils % 76.5 76.3 Lymphocytes % 14.4 L 14.8 L Monocytes % 5.8 5.8 Eosinophils % 2.3 1.9 Basophils % 0.4 0.5 Nucleated Red Blood Cells % 0.0 0.0 Neutrophils # 9.5 H 8.4 H Lymphocytes # 1.8 1.6 Monocytes # 0.7 0.6 Eosinophils # 0.3 0.2 Basophils # 0.1 0.1 Nucleated Red Blood Cells # 0.0 0.0 Sodium Level 151 H Potassium Level 4.0 Chloride Level 106 Carbon Dioxide Level 34 H Anion Gap 15 Blood Urea Nitrogen 41 H Creatinine 0.68 Glucose Level 143 Calcium Level 9.6 Medications Medications Current Medications Ascorbic Acid (Vitamin C) 500 mg DAILY PO Last administered on 11/21/16 08:45 ; Admin Dose 500 MG; Start 11/05/16 at 09:00 Phenol (Cepastat Lozenge) 1 lozenge Q6 PRN MM SORE THROAT; Start 11/04/16 at 16: 30 Folic Acid (Folic Acid) 1 mg DAILY PO Last administered on 11/21/16 08:44; Admin Dose 1 MG; Start 11/05/16 at 09:00 Multivitamins Therapeutic (Theragran) 1 tab DAILY PO Last administered on 08:44; Admin Dose 1 TAB; Start 11/05/16 at 09:00 Eye Lubricant (Artificial Tears Oph) 2 drop Q6H PRN BOTH EYES DRY EYES; Start 11/04/16 at 16:30 Amlodipine Besylate (Norvasc) 5 mg DAILY PO Last administered on 11/21/16 08: 45; Admin Dose 5 MG; Start 11/05/16 at 09:00 Hydralazine HCl (Apresoline) 10 mg Q4H PRN IV SBP >160 Last administered on 11/09 20:03; Admin Dose 10 MG; Start 11/06/16 at 16:00 Lorazepam (Ativan) 0.5 mg Q6H PRN IV ANXIETY Last administered on 11/19/16 23: 28; Admin Dose 0.5 MG; Start 11/06/16 at 18:30 Acetaminophen (Tylenol Liquid) 650 mg Q4H PRN GTB PAIN AND OR ELEVATED TEMP Last administered on 11/21/16 08:48; Admin Dose 650 MG; Start 11/11/16 at 11:00 Docusate Sodium (Colace Liquid Cup) 100 mg BID GTB Last administered on 08:45; Admin Dose 100 MG; Start 11/11/16 at 21:00 Morphine Sulfate 2 mg 2 mg Q4H PRN IV PAIN LEVEL 7-10 Last administered on 11/21 13:20; Admin Dose 2 MG; Start 11/20/16 at 16:00 Dextrose (D5W) 1,000 ml @ 75 mls/hr [id number] IV Last administered on 11/21/16 17:57; Admin Dose 75 MLS/HR; Start 11/21/16 at 17:00 Pantoprazole (Protonix Iv) 40 mg DAILY@06 IV ; Start 11/22/16 at 06:00 DAHIANA CANTOR MD November 21, 2016 20:02
[2016-11-21 20:57] VITALS: BP 126/61; RESP 22
[2016-11-22 05:33] LABS: ADD SCAN DIFF NO
[2016-11-22] MEDS: PANTOPRAZOLE 40 MG INJ IV SCH (05:35)
[2016-11-22 05:41] LABS: BASOPHIL # 0.1 10^3/ul (0.0-0.1); BASOPHILS % 0.5 % (0.0-2.0); EOSINOPHILS # 0.7 10^3/ul (0.0-0.5); EOSINOPHILS % 5.4 % (0.0-7.0); HEMATOCRIT 28.8 % (37.0-47.0); HEMOGLOBIN 8.8 g/dl (12.0-16.0); LYMPHOCYTES # 1.7 10^3/ul (0.8-2.9); LYMPHOCYTES % 13.9 % (15.0-51.0); MEAN CORPUSCULAR HEMOGLOBIN 27.8 pg (29.0-33.0); MEAN CORPUSCULAR HGB CONC 30.6 g/dl (32.0-37.0); MEAN CORPUSCULAR VOLUME 90.9 fl (82.0-101.0); MEAN PLATELET VOLUME 9.6 fl (7.4-10.4); MONOCYTE # 0.6 10^3/ul (0.3-0.9); MONOCYTES % 5.1 % (0.0-11.0); NEUTROPHILS % 74.4 % (39.0-77.0); PLATELET COUNT 432 10^3/UL (140-415); RED BLOOD COUNT 3.17 10^6/ul (4.20-5.40); RED CELL DISTRIBUTION WIDTH 16.2 % (11.5-14.5)
[2016-11-22 05:49] LABS: INR 1.05; PARTIAL THROMBOPLASTIN TIME 33.8 Sec (25.0-35.0); PROTIME 13.7 Sec (12.2-14.2); PT RATIO 1.1
[2016-11-22 05:51] LABS: CALCIUM 9.3 mg/dl (8.4-10.2); CREATININE 0.58 mg/dl (0.44-1.00); POTASSIUM 3.8 mmol/L (3.5-5.1)
[2016-11-22] MEDS: DEXTROSE 5% 1,000 ML IV SCH ×2 (06:51→21:14)
[2016-11-22 08:34] VITALS: BP 119/58; RESP 18
[2016-11-22] MEDS: DOCUSATE SODIUM 10 MG/ML (10ML CUP) GTB SCH ×2 (09:00→21:13)
[2016-11-22] MEDS: AMLODIPINE 5 MG TAB PO SCH (09:23)
[2016-11-22] MEDS: ASCORBIC ACID 500 MG TAB PO SCH (09:23)
[2016-11-22] MEDS: MULTIVITAMINS THERAPEUTIC TAB PO SCH (09:23)
[2016-11-22] MEDS: FOLIC ACID 1 MG TAB PO SCH (09:23)
--- NOTE | 2016-11-22 16:24 | CONS ---
Date/Time of Note Date/Time of Note DATE: 11/22/16 TIME: 16:21 Assessment/Plan Assessment/Plan Chief Complaint/Hosp Course 1) uti - kleb repeat u/a and urine cx, doubt this is an active problem 2) interstitial lung disease hard to say if there is an acute process on top of this chronic process on zosyn will add doxycycline for atypical coverage and MRSA coverage zosyn has good coverage for aspiration pneumonia too with bronchiectasis more resistant organisms are often found so if wbc is not improving would change zosyn to merrem check procalcitonin 11/16 - improved over the weekend day 7 of zosyn and day 4 of doxy, continue both for 3 days more 11/18 - CT chest shows pulmonary fibrosis with honeycombing and interstitial lung disease no alveolar infiltrates are seen d/c zosyn and doxy tomorrow doubt pulmonary fibrosis is due to active infection but if being aggressive she would need a bronch and/or VATS and have cultures for fungal and AFB I will sign off on case 11/22 - procalcitonin results is c/w no bacterial pneumonia continue off antibiotics 3) distended GB with gallstones and thickened GB wall doubt acute infection with GB but a more chronic process is very possible doubt she is a surgical candidate so I don't see the advantage of getting a HIDA scan to confirm this antibiotics such as zosyn can be helpful for a short course (7-10 days) and would continue with this 11/16 - she denies abd pain continue zosyn for 3 more days 11/18 - will d/c zosyn tomorrow pt is tolerating TF 11/22 - pt is comfortable and tolerating TF 4) dementia 5) g-tube 6) malnutrition low albumin pt on tube feeds now 7) hyponatremia will check urine sodium, 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 11/18 - this has normalized with lasix and hypertonic saline Problems: Consultation Date/Type/Reason Admit Date/Time November 04, 2016 at 14:31 Initial Consult Date 11/13/16 Type of Consultation: ID [id number] HR Interval Summary Free Text/Dictation spoke to nurse, pt had some stools with blood in it no cough, resting comfortable no V, tolerating TF Exam/Review of Systems Vital Signs Vitals Vital Signs Date Time Temp Pulse Resp B/P Pulse Ox O2 Delivery O2 Flow Rate FiO2 11/22/16 08:45 Nasal Cannula 2.0 11/22/16 08:34 97.8 80 18 119/58 100 Intake and Output 11/21/16 11/21/16 11/22/16 15:00 23:00 07:00 Intake Total 555 ml 1480 ml Output Total 900 ml 900 ml Balance -345 ml 580 ml Exam Constitutional: alert Head: normocephalic Eyes: nl sclera ENMT: other (dry) Respiratory: clear to auscultation (anteriorly) Cardiovascular: regular rate and rhythm Gastrointestinal: soft Results Result Diagram: 11/22/16 0445 11/22/165 Results 24 hrs Laboratory Tests Test 11/22/16 04:45 White Blood Count 12.0 H Red Blood Count 3.17 L Hemoglobin 8.8 L Hematocrit 28.8 L Mean Corpuscular Volume 90.9 Mean Corpuscular Hemoglobin 27.8 L Mean Corpuscular Hemoglobin Concent 30.6 L Red Cell Distribution Width 16.2 H Platelet Count 432 H Mean Platelet Volume 9.6 Neutrophils % 74.4 Lymphocytes % 13.9 L Monocytes % 5.1 Eosinophils % 5.4 Basophils % 0.5 Nucleated Red Blood Cells % 0.0 Neutrophils # 9.0 H Lymphocytes # 1.7 Monocytes # 0.6 Eosinophils # 0.7 H Basophils # 0.1 Nucleated Red Blood Cells # 0.0 Prothrombin Time 13.7 Prothrombin Time Ratio 1.1 INR International Normalized Ratio 1.05 Activated Partial Thromboplast Time 33.8 Sodium Level 142 Potassium Level 3.8 Chloride Level 103 Carbon Dioxide Level 34 H Anion Gap 9 # Blood Urea Nitrogen 35 H Creatinine 0.58 Glucose Level 165 Calcium Level 9.3 Medications Medications Current Medications Ascorbic Acid (Vitamin C) 500 mg DAILY PO Last administered on 11/22/16 09:23 ; Admin Dose 500 MG; Start 11/05/16 at 09:00 Phenol (Cepastat Lozenge) 1 lozenge Q6 PRN MM SORE THROAT; Start 11/04/16 at 16: 30 Folic Acid (Folic Acid) 1 mg DAILY PO Last administered on 11/22/16 09:23; Admin Dose 1 MG; Start 11/05/16 at 09:00 Multivitamins Therapeutic (Theragran) 1 tab DAILY PO Last administered on 09:23; Admin Dose 1 TAB; Start 11/05/16 at 09:00 Eye Lubricant (Artificial Tears Oph) 2 drop Q6H PRN BOTH EYES DRY EYES; Start 11/04/16 at 16:30 Amlodipine Besylate (Norvasc) 5 mg DAILY PO Last administered on 11/22/16 09: 23; Admin Dose 5 MG; Start 11/05/16 at 09:00 Hydralazine HCl (Apresoline) 10 mg Q4H PRN IV SBP >160 Last administered on 11/09 20:03; Admin Dose 10 MG; Start 11/06/16 at 16:00 Lorazepam (Ativan) 0.5 mg Q6H PRN IV ANXIETY Last administered on 11/19/16 23: 28; Admin Dose 0.5 MG; Start 11/06/16 at 18:30 Acetaminophen (Tylenol Liquid) 650 mg Q4H PRN GTB PAIN AND OR ELEVATED TEMP Last administered on 11/21/16 08:48; Admin Dose 650 MG; Start 11/11/16 at 11:00 Docusate Sodium (Colace Liquid Cup) 100 mg BID GTB Last administered on 20:21; Admin Dose 100 MG; Start 11/11/16 at 21:00 Morphine Sulfate 2 mg 2 mg Q4H PRN IV PAIN LEVEL 7-10 Last administered on 11/21 13:20; Admin Dose 2 MG; Start 11/20/16 at 16:00 Dextrose (D5W) 1,000 ml @ 75 mls/hr [id number] IV Last administered on 11/22/16 06:51; Admin Dose 75 MLS/HR; Start 11/21/16 at 17:00 Pantoprazole (Protonix Iv) 40 mg DAILY@06 IV Last administered on 11/22/16 05: 35; Admin Dose 40 MG; Start 11/22/16 at 06:00 FOUZIA HAWKINS MD November 22, 2016 16:24
--- NOTE | 2016-11-22 18:15 | PN ---
DATE: SUBJECTIVE: The patient is lethargic. Presently not complaining of any pain. OBJECTIVE: VITAL SIGNS: Temperature 97.8, blood pressure 119/58, heart rate 100 per minute. CHEST: Few wheezes heard anteriorly. HEART: S1, S2 with no definite gallops. ABDOMEN: Soft, nontender. No hepatosplenomegaly. EXTREMITIES: No edema. The patient continued to have rectal bleeding. LABORATORY DATA: Sodium 142, potassium 3.8, BUN 35, creatinine 0.58. WBC count 12.0, hematocrit 28 .8, platelet count 432,000. Lovenox on hold because of the bleeding. IMPRESSION: 1. Hypernatremia, resolved. 2. Rectal bleeding. Etiology unclear. 3. Dysphagia, status post G-tube feedings. 4. Pulmonary fibrosis of unknown etiology. The patient's overall prognosis is guarded. I left a message for the patient's nephew to call me albert hooks. I am awaiting his call. Closely monitor for further bleeding and discuss with Dr. Rojas if th e bleeding continues. Repeat CBC in a.m. Dictated By: KASSI RICARDO MD SR/NTS Conf#: [id number] DID#: [id number]
--- NOTE | 2016-11-22 20:27 | CONS ---
Date/Time of Note Date/Time of Note DATE: 11/22/16 TIME: 20:27 Assessment/Plan Assessment/Plan Additional Assessment/Plan Additional Assessment/Plan 1. Cachexia. 2. Malnutrition. 3. Dysphagia. 4. Gallstones with dilated biliary system, mild elevation of alkaline phosphatase. Biliary pathology cannot be absolutely ruled out. MRCP is negative for bile duct stone. Patient has no abdominal pain or tenderness. 5. Pneumonia. Also interstitial lung disease 6. Hypertension. 7. Dementia. 8. Anemia. 9. Status post PEG patient is tolerating feeding 10. Leukocytosis, patient is on Zosyn now 11. Hyponatremia, corrected, no patient has hyponatremia with sodium of 142 12. Pulmonary fibrosis Plan Continue present care Slowly increase feeding IV hydration Aspiration precaution Consultation Date/Type/Reason Admit Date/Time November 04, 2016 at 14:31 Type of Consultation: ID 24 HR Interval Summary Constitutional: no complaints Exam/Review of Systems Vital Signs Vitals Vital Signs Date Time Temp Pulse Resp B/P Pulse Ox O2 Delivery O2 Flow Rate FiO2 11/22/16 19:21 99 2.0 11/22/16 08:45 Nasal Cannula 11/22/16 08:34 97.8 80 18 119/58 Intake and Output 11/21/16 11/21/16 11/22/16 14:59 22:59 06:59 Intake Total 555 ml 1480 ml Output Total 900 ml 900 ml Balance -345 ml 580 ml Exam Constitutional: alert, oriented, well developed Psych: nl mood/affect, no complaints Head: atraumatic, normocephalic Eyes: EOMI, PERRL, nl conjunctiva, nl lids, nl sclera ENMT: nl external ears & nose, nl lips & teeth, nl nasal mucosa & septum Neck: non-tender, supple Respiratory: clear to auscultation, normal air movement Cardiovascular: nl pulses, regular rate and rhythm Gastrointestinal: nl liver, spleen, non-tender, soft Musculoskeletal: nl extremities to inspection, nl gait and stance Extremities: normal pulses Neurological: 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 intact, nl mental status, nl speech, nl strength Skin: nl turgor, No rash or lesions Lymph: nl lymph nodes Results Result Diagram: 11/22/16 0445 11/22/16 0445 Results 24 hrs Laboratory Tests Test 11/22/16 04:45 White Blood Count 12.0 H Red Blood Count 3.17 L Hemoglobin 8.8 L Hematocrit 28.8 L Mean Corpuscular Volume 90.9 Mean Corpuscular Hemoglobin 27.8 L Mean Corpuscular Hemoglobin Concent 30.6 L Red Cell Distribution Width 16.2 H Platelet Count 432 H Mean Platelet Volume 9.6 Neutrophils % 74.4 Lymphocytes % 13.9 L Monocytes % 5.1 Eosinophils % 5.4 Basophils % 0.5 Nucleated Red Blood Cells % 0.0 Neutrophils # 9.0 H Lymphocytes # 1.7 Monocytes # 0.6 Eosinophils # 0.7 H Basophils # 0.1 Nucleated Red Blood Cells # 0.0 Prothrombin Time 13.7 Prothrombin Time Ratio 1.1 INR International Normalized Ratio 1.05 Activated Partial Thromboplast Time 33.8 Sodium Level 142 Potassium Level 3.8 Chloride Level 103 Carbon Dioxide Level 34 H Anion Gap 9 # Blood Urea Nitrogen 35 H Creatinine 0.58 Glucose Level 165 Calcium Level 9.3 Medications Medications Current Medications Ascorbic Acid (Vitamin C) 500 mg DAILY PO Last administered on 11/22/16 09:23 ; Admin Dose 500 MG; Start 11/05/16 at 09:00 Phenol (Cepastat Lozenge) 1 lozenge Q6 PRN MM SORE THROAT; Start 11/04/16 at 16: 30 Folic Acid (Folic Acid) 1 mg DAILY PO Last administered on 11/22/16 09:23; Admin Dose 1 MG; Start 11/05/16 at 09:00 Multivitamins Therapeutic (Theragran) 1 tab DAILY PO Last administered on 09:23; Admin Dose 1 TAB; Start 11/05/16 at 09:00 Eye Lubricant (Artificial Tears Oph) 2 drop Q6H PRN BOTH EYES DRY EYES; Start 11/04/16 at 16:30 Amlodipine Besylate (Norvasc) 5 mg DAILY PO Last administered on 11/22/16 09: 23; Admin Dose 5 MG; Start 11/05/16 at 09:00 Hydralazine HCl (Apresoline) 10 mg Q4H PRN IV SBP >160 Last administered on 11/09 20:03; Admin Dose 10 MG; Start 11/06/16 at 16:00 Lorazepam (Ativan) 0.5 mg Q6H PRN IV ANXIETY Last administered on 11/19/16 23: 28; Admin Dose 0.5 MG; Start 11/06/16 at 18:30 Acetaminophen (Tylenol Liquid) 650 mg Q4H PRN GTB PAIN AND OR ELEVATED TEMP Last administered on 11/21/16 08:48; Admin Dose 650 MG; Start 11/11/16 at 11:00 Docusate Sodium (Colace Liquid Cup) 100 mg BID GTB Last administered on 20:21; Admin Dose 100 MG; Start 11/11/16 at 21:00 Morphine Sulfate 2 mg 2 mg Q4H PRN IV PAIN LEVEL 7-10 Last administered on 11/21 13:20; Admin Dose 2 MG; Start 11/20/16 at 16:00 Dextrose (D5W) 1,000 ml @ 40 mls/hr Q24H IV Last administered on 11/22/16 06: 51; Admin Dose 75 MLS/HR; Start 11/21/16 at 17:00 Pantoprazole (Protonix Iv) 40 mg DAILY@06 IV Last administered on 11/22/16 05: 35; Admin Dose 40 MG; Start 11/22/16 at 06:00 DAHIANA CANTOR MD November 22, 2016 20:27
[2016-11-22 20:47] VITALS: BP 114/65; RESP 18
[2016-11-23] MEDS: PANTOPRAZOLE 40 MG INJ IV SCH (05:02)
[2016-11-23 05:04] LABS: ADD SCAN DIFF NO
[2016-11-23 05:08] LABS: HEMATOCRIT 27.3 % (37.0-47.0); HEMOGLOBIN 8.4 g/dl (12.0-16.0); MEAN CORPUSCULAR VOLUME 87.8 fl (82.0-101.0); RED BLOOD COUNT 3.11 10^6/ul (4.20-5.40); WHITE BLOOD COUNT 15.4 10^3/ul (4.8-10.8)
[2016-11-23 05:09] LABS: BASOPHILS % 0.3 % (0.0-2.0); EOSINOPHILS # 0.4 10^3/ul (0.0-0.5); EOSINOPHILS % 2.3 % (0.0-7.0); LYMPHOCYTES # 1.7 10^3/ul (0.8-2.9); MEAN CORPUSCULAR HGB CONC 30.8 g/dl (32.0-37.0); MEAN PLATELET VOLUME 9.7 fl (7.4-10.4); MONOCYTE # 0.7 10^3/ul (0.3-0.9); MONOCYTES % 4.4 % (0.0-11.0); NEUTROPHIL # 12.5 10^3/ul (1.6-7.5); NEUTROPHILS % 81.2 % (39.0-77.0); PLATELET COUNT 387 10^3/UL (140-415); RED CELL DISTRIBUTION WIDTH 15.9 % (11.5-14.5)
[2016-11-23 05:26] LABS: POTASSIUM 3.5 mmol/L (3.5-5.1)
[2016-11-23 05:29] LABS: CREATININE 0.54 mg/dl (0.44-1.00)
[2016-11-23 05:30] LABS: CALCIUM 8.7 mg/dl (8.4-10.2)
[2016-11-23 08:02] VITALS: BP 107/61; RESP 18
[2016-11-23] MEDS: ASCORBIC ACID 500 MG TAB PO SCH (08:41)
[2016-11-23] MEDS: FOLIC ACID 1 MG TAB PO SCH (08:41)
[2016-11-23] MEDS: DOCUSATE SODIUM 10 MG/ML (10ML CUP) GTB SCH ×2 (08:41→20:25)
[2016-11-23] MEDS: MULTIVITAMINS THERAPEUTIC TAB PO SCH (08:41)
[2016-11-23] MEDS: AMLODIPINE 5 MG TAB PO SCH (08:43)
--- NOTE | 2016-11-23 12:06 | PN ---
DATE: 11/23/2016 SUBJECTIVE: Patient is lethargic, in no acute distress. Had a few bouts of rectal bleeding over the weekend. When questioned, she denies any abdominal pain. PHYSICAL EXAMINATION: VITAL SIGNS: Temperature 97.8, blood pressure 107/61, O2 saturation 99% on 2 liters nasal cannula. CHEST: A few wheezes. HEART: S1, S2. No gallops. ABDOMEN: Soft, nontender. EXTREMITIES: No edema. LABORATORY: WBC count 15.4 today, up from 12.3 yesterday. Hematocrit 27.3. Sodium 132, potassium 3.5, BUN 29, creatinine 0.54. IMPRESSION: 1. Rectal bleeding. Etiology unclear, with anemia. 2. Dysphagia, status post G-tube feedings. 3. Pulmonary fibrosis. Still awaiting a call back from the patient's nephew regarding further care. Recheck a CBC in the a .m. If it remains stable, consider discharge back to [facility] after discussing with Dr. Bahena and Dr. Rojas. Dictated By: KASSI RICARDO MD, SR/SHANTEL Conf#: [id number] DID#: [id number]
--- NOTE | 2016-11-23 18:19 | CONS ---
Date/Time of Note Date/Time of Note DATE: 11/23/16 TIME: 18:18 Assessment/Plan Assessment/Plan Additional Assessment/Plan Additional Assessment/Plan Additional Assessment/Plan 1. Cachexia. 2. Malnutrition. 3. Dysphagia. 4. Gallstones with dilated biliary system, mild elevation of alkaline phosphatase. Biliary pathology cannot be absolutely ruled out. MRCP is negative for bile duct stone. Patient has no abdominal pain or tenderness. 5. Pneumonia. Also interstitial lung disease 6. Hypertension. 7. Dementia. She is responding to command 8. Anemia. 9. Status post PEG patient is tolerating feeding 10. Leukocytosis, patient is on Zosyn now 11. Hyponatremia, corrected, no patient has hyponatremia with sodium of 142 12. Pulmonary fibrosis Plan Continue present care Patient off all the antibiotic IV hydration Aspiration precaution Consultation Date/Type/Reason Admit Date/Time November 04, 2016 at 14:31 Type of Consultation: ID [id number] HR Interval Summary Free Text/Dictation No abdominal pain no nausea no warm Constitutional: improved, no complaints Exam/Review of Systems Vital Signs Vitals Vital Signs Date Time Temp Pulse Resp B/P Pulse Ox O2 Delivery O2 Flow Rate FiO2 11/23/16 16:59 2.0 11/23/16 08:02 97.8 85 18 107/61 99 11/23/16 07:52 Nasal Cannula Intake and Output 11/22/16 11/22/16 11/23/16 15:00 23:00 07:00 Intake Total 1780 ml 1100 ml Output Total 750 ml 400 ml Balance 1030 ml 700 ml Exam Constitutional: alert, oriented, well developed Psych: nl mood/affect, no complaints Head: atraumatic, normocephalic Eyes: EOMI, PERRL, nl conjunctiva, nl lids, nl sclera ENMT: nl external ears & nose, nl lips & teeth, nl nasal mucosa & septum Neck: non-tender, supple Respiratory: clear to auscultation, normal air movement Cardiovascular: nl pulses, regular rate and rhythm Gastrointestinal: nl liver, spleen, non-tender, soft Musculoskeletal: nl extremities to inspection, nl gait and stance Extremities: normal pulses Neurological: ANESTHESIOLOGY PHYSICIAN ASSISTANT II-XII intact, nl mental status, nl speech, nl strength Skin: nl turgor, No rash or lesions Lymph: nl lymph nodes Results Result Diagram: 5/22/17 0420 5/22/17 0420 Results 24 hrs Laboratory Tests Test 11/23/16 04:20 White Blood Count 15.4 #H Red Blood Count 3.11 L Hemoglobin 8.4 L Hematocrit 27.3 L Mean Corpuscular Volume 87.8 Mean Corpuscular Hemoglobin 27.0 L Mean Corpuscular Hemoglobin Concent 30.8 L Red Cell Distribution Width 15.9 H Platelet Count 387 Mean Platelet Volume 9.7 Neutrophils % 81.2 H Lymphocytes % 11.0 L Monocytes % 4.4 Eosinophils % 2.3 Basophils % 0.3 Nucleated Red Blood Cells % 0.0 Neutrophils # 12.5 H Lymphocytes # 1.7 Monocytes # 0.7 Eosinophils # 0.4 Basophils # 0.0 Nucleated Red Blood Cells # 0.0 Sodium Level 133 L Potassium Level 3.5 Chloride Level 92 #L Carbon Dioxide Level 32 H Anion Gap 13 Blood Urea Nitrogen 29 H Creatinine 0.54 Glucose Level 150 Calcium Level 8.7 Medications Medications Current Medications Ascorbic Acid (Vitamin C) 500 mg DAILY PO Last administered on 11/23/16 08:41 ; Admin Dose 500 MG; Start 11/05/16 at 09:00 Phenol (Cepastat Lozenge) 1 lozenge Q6 PRN MM SORE THROAT; Start 11/04/16 at 16: 30 Folic Acid (Folic Acid) 1 mg DAILY PO Last administered on 11/23/16 08:41; Admin Dose 1 MG; Start 11/05/16 at 09:00 Multivitamins Therapeutic (Theragran) 1 tab DAILY PO Last administered on 08:41; Admin Dose 1 TAB; Start 11/05/16 at 09:00 Eye Lubricant (Artificial Tears Oph) 2 drop Q6H PRN BOTH EYES DRY EYES; Start 11/04/16 at 16:30 Amlodipine Besylate (Norvasc) 5 mg DAILY PO Last administered on 11/23/16 08: 43; Admin Dose 5 MG; Start 11/05/16 at 09:00 Hydralazine HCl (Apresoline) 10 mg Q4H PRN IV SBP >160 Last administered on 11/09 20:03; Admin Dose 10 MG; Start 11/06/16 at 16:00 Lorazepam (Ativan) 0.5 mg Q6H PRN IV ANXIETY Last administered on 11/19/16 23: 28; Admin Dose 0.5 MG; Start 11/06/16 at 18:30 Acetaminophen (Tylenol Liquid) 650 mg Q4H PRN GTB PAIN AND OR ELEVATED TEMP Last administered on 11/21/16 08:48; Admin Dose 650 MG; Start 11/11/16 at 11:00 Docusate Sodium (Colace Liquid Cup) 100 mg BID GTB Last administered on 08:41; Admin Dose 100 MG; Start 11/11/16 at 21:00 Morphine Sulfate 2 mg 2 mg Q4H PRN IV PAIN LEVEL 7-10 Last administered on 11/21 13:20; Admin Dose 2 MG; Start 11/20/16 at 16:00 Dextrose (D5W) 1,000 ml @ 40 mls/hr Q24H IV Last administered on 11/22/16 21: 14; Admin Dose 40 MLS/HR; Start 11/21/16 at 17:00 Pantoprazole (Protonix Iv) 40 mg DAILY@06 IV Last administered on 11/23/16 05: 02; Admin Dose 40 MG; Start 11/22/16 at 06:00 DAHIANA CANTOR MD November 23, 2016 18:19
[2016-11-23 21:16] VITALS: BP 119/80; RESP 17
[2016-11-23] MEDS: DEXTROSE 5% 1,000 ML IV SCH (22:10)
[2016-11-23] MEDS: morphine 2 MG INJ IV PRN (22:46)
[2016-11-24 04:50] LABS: ADD SCAN DIFF NO
[2016-11-24 04:55] LABS: BASOPHILS % 0.1 % (0.0-2.0); EOSINOPHILS # 0.3 10^3/ul (0.0-0.5); EOSINOPHILS % 1.7 % (0.0-7.0); HEMATOCRIT 27.4 % (37.0-47.0); HEMOGLOBIN 8.6 g/dl (12.0-16.0); LYMPHOCYTES % 12.1 % (15.0-51.0); MEAN CORPUSCULAR HEMOGLOBIN 26.7 pg (29.0-33.0); MEAN CORPUSCULAR HGB CONC 31.4 g/dl (32.0-37.0); MEAN CORPUSCULAR VOLUME 85.1 fl (82.0-101.0); MEAN PLATELET VOLUME 9.7 fl (7.4-10.4); MONOCYTE # 0.7 10^3/ul (0.3-0.9); MONOCYTES % 4.3 % (0.0-11.0); NEUTROPHIL # 13.2 10^3/ul (1.6-7.5); NEUTROPHILS % 80.8 % (39.0-77.0); PLATELET COUNT 403 10^3/UL (140-415); RED BLOOD COUNT 3.22 10^6/ul (4.20-5.40); RED CELL DISTRIBUTION WIDTH 15.5 % (11.5-14.5); WHITE BLOOD COUNT 16.3 10^3/ul (4.8-10.8)
[2016-11-24 05:47] LABS: CALCIUM 8.3 mg/dl (8.4-10.2); CREATININE 0.54 mg/dl (0.44-1.00); POTASSIUM 3.7 mmol/L (3.5-5.1)
[2016-11-24] MEDS: PANTOPRAZOLE 40 MG INJ IV SCH (06:10)
[2016-11-24] MEDS: FOLIC ACID 1 MG TAB PO SCH (08:00)
[2016-11-24] MEDS: AMLODIPINE 5 MG TAB PO SCH (08:00)
[2016-11-24] MEDS: DOCUSATE SODIUM 10 MG/ML (10ML CUP) GTB SCH ×2 (08:00→21:00)
[2016-11-24] MEDS: ASCORBIC ACID 500 MG TAB PO SCH (08:00)
[2016-11-24] MEDS: MULTIVITAMINS THERAPEUTIC TAB PO SCH (08:00)
[2016-11-24 08:22] VITALS: BP 116/58; RESP 20
--- NOTE | 2016-11-24 09:52 | PN ---
DATE: SUBJECTIVE: The patient appears to be in some pain keeps moaning, afebrile. OBJECTIVE: VITAL SIGNS: Temperature 97.7, blood pressure 116/58, O2 sats 100% on 2 liters nasal cannula. CHEST: Few wheezes. HEART: S1, S2 heard with no definite gallops. ABDOMEN: Soft. EXTREMITIES: No edema. Per nursing, the patient also had another episode of rectal bleeding today. LABORATORY DATA: Hematocrit 27.4. WBC count 16.3, platelet count is 403,000. Sodium 127, potassiu m 3.7. The patient off Lovenox. IMPRESSION: 1. Rectal bleeding, it is unclear with anemia. 2. Hyponatremia. 3. Dysphagia, status post G-tube feedings. 4. Pulmonary fibrosis with interstitial lung disease. I placed a call to the patient's nephew regarding making her on a NO CODE status and consideration o f palliative care, still awaiting his call back. I have discussed the patient's condition and care with Dr. Leon and will consider discharge back to [facility] after discussing with the patie nt's family and comfort care measures to be continued at the facility per Dr. Leon. Dictated By: KASSI RICARDO MD SR/SHANTEL Conf#: [id number] DID#: [id number]
[2016-11-24 20:38] VITALS: BP 109/62; RESP 18
--- NOTE | 2016-11-25 05:20 | DS ---
DATE OF ADMISSION: 11/04/2016 DATE OF DISCHARGE: 11/24/2016 FINAL DIAGNOSES: 1. Dysphagia with severe malnutrition status post G-tube placement. 2. Severe pulmonary fibrosis with interstitial lung disease. 3. Hyponatremia, resolved. 4. Rectal bleeding of uncertain etiology. 5. Urinary tract infection with encephalopathy. 6. Atypical chest pain. No evidence of acute myocardial infarction. HOSPITAL COURSE: The patient is an 86-year-old lady presented from a convalescent home with increas ing shortness of breath, burning sensation with micturition and the patient was evaluated in the [facility] room who was moaning constantly and initial lactic acid level is 2.3. Troponin 0.02. UA antwan wed leukocyte esterase, many bacteria and the patient was begun on a course of Cefepime 1 gram q.12. Urine culture grew Klebsiella. The patient was seen by Dr. Rojas from GI standpoint who performe d a PEG procedure and the patient was begun on G-tube feedings. The patient had evidence of gallsto karen with thickened gallbladder wall. There was no clinical suspicion of acute cholecystitis. The p atient was kept on Zosyn which was switched to Mer[place] Dr. Bahena from ID standpoint. She had develope d severe hyponatremia and the patient was seen by Dr. Louie on 11/16/2016 and felt that it coul d be related to tube feeding, and she had a high urine sodium with hyponatremia consistent with SIAD H, and he discontinued the IV normal saline, switched to hypertonic saline. One dose of Lasix was g iven to prevent volume overload and serum sodium stabilized. The patient began having rectal bleedi ng on 11/21/2016, Lovenox was held with improvement of the rectal bleeding. I had a long discussion with the patient's nephew, Mr. Tk Muniz, and place the patient on a NO CODE status. Her overall prognosis is poor given multiple comorbid conditions and the patient was discharged to [facility] after discussion with the patient's PMD, Dr. Leon, who will admit the patien t to hospice care under [facility]. Her overall prognosis is poor. DISCHARGE CONDITION: Fair. Dictated By: KASSI RICARDO MD SR/NTS Conf#: [id number] DID#: [id number]
[2016-11-25] MEDS ORDERED: LANSOPRAZOLE 30 MG CAP GTB SCH (06:00)
== END 2016-11-24 20:45 | disposition hospice, inpatient (51) | DRG 640 ==
LOC: E/R 10:16 → TEL 14:31 → MS1 11-13 01:04
PROVIDERS: ADMIT Internal Medicine; ATTEND Internal Medicine
PROC: 0DH63UZ Insertion of Feeding Device into Stomach, Percutaneous Approach (ICD-10-PCS; principal; 2016-11-10 12:00)
DX: E43 Unspecified severe protein-calorie malnutrition (principal); J18.9 Pneumonia, unspecified organism; J84.9 Interstitial pulmonary disease, unspecified; G93.49 Other encephalopathy; R64 Cachexia; L89.152 Pressure ulcer of sacral region, stage 2; F03.90 Unspecified dementia, unspecified severity, without behavioral disturbance, psychotic disturbance, mood disturbance, and anxiety; J84.10 Pulmonary fibrosis, unspecified; K80.10 Calculus of gallbladder with chronic cholecystitis without obstruction; E22.2 Syndrome of inappropriate secretion of antidiuretic hormone; N39.0 Urinary tract infection, site not specified; K62.5 Hemorrhage of anus and rectum; Z68.1 Body mass index [BMI] 19.9 or less, adult; R13.10 Dysphagia, unspecified; E86.0 Dehydration; E88.09 Other disorders of plasma-protein metabolism, not elsewhere classified; N20.0 Calculus of kidney; B96.1 Klebsiella pneumoniae [K. pneumoniae] as the cause of diseases classified elsewhere; D64.9 Anemia, unspecified; D72.829 Elevated white blood cell count, unspecified; E83.42 Hypomagnesemia; F32.9 Major depressive disorder, single episode, unspecified; I10 Essential (primary) hypertension; J47.9 Bronchiectasis, uncomplicated; J39.8 Other specified diseases of upper respiratory tract; M81.0 Age-related osteoporosis without current pathological fracture; R41.0 Disorientation, unspecified; R91.1 Solitary pulmonary nodule; R62.7 Adult failure to thrive; Z66 Do not resuscitate
CPT/HCPCS: 36415; 71010; 71260; 74176; 74181; 80048; 80053; 81001; 81003; 82270; 82378; 82533; 82550; 82553; 82570; 83605; 83735; 83880; 83930; 83935; 84145; 84300; 84436; 84443; 84484; 85025; 85610; 85730; 86304; 87040; 87081; 87086; 92526; 92610; 93005; 96374; J1940; A4310; C9113; J0360; J0690; J0692; J1650; J2060; J2270; J2543; J3475; J7030; J7042; J7070; Q9967